=== PATIENT | female | born 1945 | race Caucasian/White ===

== ENCOUNTER 2021-12-07 15:00 | Observation (INO) | payer MEDICARE ==
--- NOTE | 2021-12-07 16:49 | CT ---
EXAMINATION TYPE: CT brain cspine wo con CT DLP: 1322.5 mGycm, Automated exposure control for dose reduction was used. DATE OF EXAM: 12/07/2021 4:33 PM COMPARISON: None.. CLINICAL INDICATION:Female, 76 years old with history of trauma; Trauma from possible seizure. Rt tem ple bruising. Pt doesn't recall incident and denies seizure hx. TECHNIQUE: Brain: Multiple axial CT images of the brain were obtained without IV contrast. Cspine: Axial CT images from the skull base to the inferior aspect of T2 we obtained without intraven ous contrast. Coronal and sagittal reformatted images were also reviewed. FINDINGS: Brain: Extra-axial spaces: No abnormal extra-axial fluid collections. Ventricular system: Within normal limits Cerebral parenchyma: No acute intraparenchymal hemorrhage or mass effect. The spaulding-white junction is well differentiated. Scattered hypoattenuating areas are seen within the white matter. Cerebellum: Unremarkable. Mass effect: No evidence of midline shift. Intracranial vasculature: unremarkable Soft tissues: Minimal soft tissue changes over the right temporal bone. Calvarium/osseous structures: No depressed skull fracture. Paranasal sinuses and mastoid air cells: Clear. Visualized orbits: Orbital contents are intact. Cervical spine: Fracture: None. Osseous structures: Multilevel degenerative disc disease changes with endplate spurring and disc oste ophyte complex's. Vertebral alignment: Within normal limits. Spinal canal/Neural Foramina: No evidence of significant spinal canal narrowing. Facet joint uncovert ebral joint arthropathy scattered throughout the cervical spine with varying degrees of neural forami nal stenosis. Neck soft tissues: Prevertebral soft tissues are within normal limits. Other: The airway is patent. The lung apices are clear. IMPRESSION: 1. No acute intracranial process. 2. Nonspecific white matter changes, likely secondary to chronic small vessel ischemic disease. 3. No evidence of cervical spine fracture. 4. Moderate multilevel degenerative disc disease.
[2021-12-07 17:08] LABS: Basophils % (A) 0 %; Eosinophils # (A) 0.1 k/uL (0-0.7); Eosinophils % (A) 1 %; HGB 13.1 gm/dL (11.4-16.0); Lymphocytes # (A) 1.6 k/uL (1.0-4.8); Lymphocytes % (A) 12 %; MCH 31.6 pg (25.0-35.0); MCHC 34.4 g/dL (31.0-37.0); MCV 91.7 fL (80.0-100.0); Mean Platelet Volume 7.4; Monocytes # (A) 0.6 k/uL (0-1.0); Monocytes % (A) 4 %; Neutrophils % (A) 82 %; Platelet Count 312 k/uL (150-450); RBC 4.15 m/uL (3.80-5.40); RDW 12.5 % (11.5-15.5); WBC 13.4 k/uL (3.8-10.6)
--- NOTE | 2021-12-07 17:10 | ED ---
General Adult HPI - General Chief complaint: Altered Mental Status Stated complaint: Abnormal Lab, Dr Thomas sent for a brain scan Time Seen by Provider: 12/07/21 16:13 Source: patient, RN notes reviewed, old records reviewed Mode of arrival: ambulatory Limitations: no limitations - History of Present Illness Initial comments: 76-year-old female presenting from the primary care office for confusion and signs of head trauma. Patient's had gone to the primary care physician with right-sided head injury and tongue injury. The patient states that she had awoken this morning and had no numbness or urinary incontinence. She has no prior history of seizure disorder. She does not recall any of the events. She is confused as to what exactly happened. She states she has had some dizziness over the past one week with associated nausea. No focal numbness or weakness. No headache. - Related Data Allergies Allergy/AdvReac Type Severity Reaction Status Date / Time No Known Allergies Allergy Verified 12/07/21 15:40 Review of Systems ROS Statement: Those systems with pertinent positive or pertinent negative responses have been documented in the HPI. ROS Other: All systems not noted in ROS Statement are negative. Past Medical History Past Medical History: No Reported History History of Any Multi-Drug Resistant Organisms: None Reported Past Surgical History: No Surgical Hx Reported Past Psychological History: No Psychological Hx Reported Smoking Status: Former smoker Past Alcohol Use History: None Reported Past Drug Use History: None Reported General Exam Limitations: no limitations General appearance: alert, in no apparent distress Head exam: Present: normocephalic. Absent: atraumatic (Right temporal hematoma and right eye subconjunctival hemorrhage) Eye exam: Present: PERRL, other (Subconjunctival hemorrhage on the right) Respiratory exam: Present: normal lung sounds bilaterally. Absent: respiratory distress, wheezes Cardiovascular Exam: Present: regular rate, normal rhythm GI/Abdominal exam: Present: soft. Absent: distended, tenderness, guarding Extremities exam: Present: normal capillary refill Neurological exam: Present: alert, CN II-XII intact. Absent: motor sensory deficit Psychiatric exam: Present: normal affect, normal mood Skin exam: Present: warm, dry, intact. Absent: cyanosis, diaphoretic Course Vital Signs 12/07/21 12/07/21 15:36 16:57 Temperature 98.6 F Pulse Rate 79 80 Respiratory 16 18 Rate Blood Pressure 131/64 138/82 O2 Sat by Pulse 98 99 Oximetry EKG Findings - EKG Comments: EKG Findings:: EKG: Sinus rhythm low voltage, T-wave abnormality in lead 3 and V3, no ST segment elevation. Rate of 73, SD interval 145, QRS duration 79, QTC 422 Medical Decision Making - Medical Decision Making 76-year-old female with suspected new onset seizure. There was head trauma and therefore CT imaging was performed which is negative for intracranial hemorrhage or mass effect. Laboratory studies reveal mild leukocytosis and a normal CMP. There is signs of a year UTI with 81 white cells in the urine per culture is pending but the patient is started on antibiotics awaiting these results given the leukocytosis. Patient also given Keppra in the emergency department she will be admitted on seizure precautions to Dr. Thomas who is aware of the patient with neurology on consult. - Lab Data Result diagrams: 12/07/21 16:52 12/07/21 16:52 Lab Results 12/07/21 12/07/21 12/07/21 Range/Units 16:38 16:52 16:52 WBC 13.4 H (3.8-10.6) k/uL RBC 4.15 (3.80-5.40) m/uL Hgb 13.1 (11.4-16.0) gm/dL Hct 38.0 (34.0-46.0) % MCV 91.7 (80.0-100.0) fL MCH 31.6 (25.0-35.0) pg MCHC 34.4 (31.0-37.0) g/dL RDW 12.5 (11.5-15.5) % Plt Count 312 (150-450) k/uL MPV 7.4 Neutrophils % 82 % Lymphocytes % 12 % Monocytes % 4 % Eosinophils % 1 % Basophils % 0 % Neutrophils # 11.0 H (1.3-7.7) k/uL Lymphocytes # 1.6 (1.0-4.8) k/uL Monocytes # 0.6 (0-1.0) k/uL Eosinophils # 0.1 (0-0.7) k/uL Basophils # 0.0 (0-0.2) k/uL PT 10.8 (9.0-12.0) sec INR 1.0 (<1.2) APTT 21.2 L (22.0-30.0) sec Sodium (137-145) mmol/L Potassium (3.5-5.1) mmol/L Chloride (98-107) mmol/L Carbon Dioxide (22-30) mmol/L Anion Gap mmol/L BUN (7-17) mg/dL Creatinine (0.52-1.04) mg/dL Est GFR (CKD-EPI)AfAm (>60 ml/min/1.73 sqM) Est GFR (CKD-EPI)NonAf (>60 ml/min/1.73 sqM) Glucose (74-99) mg/dL Calcium (8.4-10.2) mg/dL Magnesium (1.6-2.3) mg/dL Total Bilirubin (0.2-1.3) mg/dL AST (14-36) U/L ALT (4-34) U/L Alkaline Phosphatase (38-126) U/L Total Protein (6.3-8.2) g/dL Albumin (3.5-5.0) g/dL Urine Color Yellow Urine Appearance Clear (Clear) Urine pH 5.5 (5.0-8.0) Ur Specific [place] 1.020 (1.001-1.035) Urine Protein Trace H (Negative) Urine Glucose (UA) Negative (Negative) Urine Ketones 1+ H (Negative) Urine Blood Trace H (Negative) Urine Nitrite Negative (Negative) Urine Bilirubin Negative (Negative) Urine Urobilinogen <2.0 (<2.0) mg/dL Ur Leukocyte Esterase Large H (Negative) Urine RBC 2 (0-5) /hpf Urine WBC 81 H (0-5) /hpf Ur Squamous Epith Cells 1 (0-4) /hpf Ur Transition Epith Cell <1 (0-1) /hpf Urine Bacteria Rare H (None) /hpf Urine Mucus Few H (None) /hpf 12/07/21 Range/Units 16:52 WBC (3.8-10.6) k/uL RBC (3.80-5.40) m/uL Hgb (11.4-16.0) gm/dL Hct (34.0-46.0) % MCV (80.0-100.0) fL MCH (25.0-35.0) pg MCHC (31.0-37.0) g/dL RDW (11.5-15.5) % Plt Count (150-450) k/uL MPV Neutrophils % % Lymphocytes % % Monocytes % % Eosinophils % % Basophils % % Neutrophils # (1.3-7.7) k/uL Lymphocytes # (1.0-4.8) k/uL Monocytes # (0-1.0) k/uL Eosinophils # (0-0.7) k/uL Basophils # (0-0.2) k/uL PT (9.0-12.0) sec INR (<1.2) APTT (22.0-30.0) sec Sodium 139 (137-145) mmol/L Potassium 3.5 (3.5-5.1) mmol/L Chloride 103 (98-107) mmol/L Carbon Dioxide 25 (22-30) mmol/L Anion Gap 11 mmol/L BUN 14 (7-17) mg/dL Creatinine 0.70 (0.52-1.04) mg/dL Est GFR (CKD-EPI)AfAm >90 (>60 ml/min/1.73 sqM) Est GFR (CKD-EPI)NonAf 86 (>60 ml/min/1.73 sqM) Glucose 133 H (74-99) mg/dL Calcium 9.2 (8.4-10.2) mg/dL Magnesium 2.3 (1.6-2.3) mg/dL Total Bilirubin 0.5 (0.2-1.3) mg/dL AST 46 H (14-36) U/L ALT 26 (4-34) U/L Alkaline Phosphatase 94 (38-126) U/L Total Protein 7.4 (6.3-8.2) g/dL Albumin 4.6 (3.5-5.0) g/dL Urine Color Urine Appearance (Clear) Urine pH (5.0-8.0) Ur Specific [place] (1.001-1.035) Urine Protein (Negative) Urine Glucose (UA) (Negative) Urine Ketones (Negative) Urine Blood (Negative) Urine Nitrite (Negative) Urine Bilirubin (Negative) Urine Urobilinogen (<2.0) mg/dL Ur Leukocyte Esterase (Negative) Urine RBC (0-5) /hpf Urine WBC (0-5) /hpf Ur Squamous Epith Cells (0-4) /hpf Ur Transition Epith Cell (0-1) /hpf Urine Bacteria (None) /hpf Urine Mucus (None) /hpf Disposition Clinical Impression: Altered mental status, New onset seizure Disposition: ADMITTED IP TO THIS HOSP Condition: Stable Instructions (If sedation given, give patient instructions): Seizure/Epilepsy Discharge Instructions & Follow-Up Is patient prescribed a controlled substance at d/c from ED?: No Referrals: Ankush Thomas MD [Primary Care Provider] - 1-2 days Time of Disposition: 17:46
[2021-12-07] MEDS ORDERED: levETIRAcetam IV 1,000 MG in SALINE 1 100ML.BAG IVPB STA (17:11)
[2021-12-07 17:12] LABS: ALT 26 U/L (4-34); AST 46 U/L (14-36); African American GFR (CKD) >90 (>60 ml/min/1.73 sqM); Albumin 4.6 g/dL (3.5-5.0); Alkaline Phosphatase 94 U/L (38-126); Anion Gap 11 mmol/L; Blood Urea Nitrogen 14 mg/dL (7-17); Calcium 9.2 mg/dL (8.4-10.2); Carbon Dioxide 25 mmol/L (22-30); Chloride 103 mmol/L (98-107); Glucose 133 mg/dL (74-99); Magnesium 2.3 mg/dL (1.6-2.3); Non-African American GFR(CKD) 86 (>60 ml/min/1.73 sqM); Potassium 3.5 mmol/L (3.5-5.1); Sodium 139 mmol/L (137-145); Total Bilirubin 0.5 mg/dL (0.2-1.3); Total Protein 7.4 g/dL (6.3-8.2)
[2021-12-07 17:15] LABS: Appearance,Urine Clear (Clear); Bacteria,Urine Rare /hpf; Bilirubin,Urine Negative (Negative); Blood,Urine Trace (Negative); Color,Urine Yellow; Glucose,Urine (UA) Negative (Negative); Ketones,Urine 1+ (Negative); Leukocyte Esterase,Urine Large (Negative); Mucus,Urine Few /hpf; Nitrite,Urine Negative (Negative); PH, Urine 5.5 (5.0-8.0); Protein,Urine Trace (Negative); RBC,Urine 2 /hpf (0-5); Squamous Epithelial Cell,Urine 1 /hpf (0-4); Transitional Epi Cells,Urine <1 /hpf (0-1); Urobilinogen,Urine <2.0 mg/dL (<2.0); WBC,Urine 81 /hpf (0-5)
[2021-12-07 17:20] LABS: Prothrombin Time 10.8 sec (9.0-12.0)
[2021-12-07 17:43] LABS: Partial Thromboplastin Time 21.2 sec (22.0-30.0)
[2021-12-07] MEDS ORDERED: NALOXONE 0.4 MG/ML 1 ML VIAL IV PRN (17:44)
[2021-12-07] MEDS ORDERED: ACETAMINOPHEN TAB 325 MG TAB PO PRN (17:44)
[2021-12-07] MEDS: SODIUM CHLORIDE 0.9% 1,000 ML IV SCH (18:58)
[2021-12-07] MEDS ORDERED: ACETAMINOPHEN TAB 500 MG TAB PO PRN (21:38)
[2021-12-07] MEDS ORDERED: PANTOPRAZOLE 40 MG TABLET PO PRN (21:38)
[2021-12-07] MEDS: CEPHALEXIN 500 MG CAP PO SCH (22:20)
--- NOTE | 2021-12-07 23:43 | P.HPIM ---
History of Present Illness H&P Date: 12/07/21 HISTORY OF PRESENT ILLNESS 76-year-old female one of my office patient who is known to have history of chronic colitis, recurrent diarrhea with IVSD, history of elevated blood pressure, hyperglycemia, chronic lower back pain, recurrent UTI who was seen in our office last 2 days because of episode of severe worsening diarrhea and quite bit dehydration by people pass out with her concern fell and traumatized the right side of forehead area when examining patient carefully found to have small cut on the left side of her tongue and has no recollection and memory of her tr auma or how it happened. The further detail patient found to have mild amnesia for the event which this point believed to be probably seizure activity. Her laboratory value shows only significant UTI patient was sent to the emergency department had CAT scan of the brain and full panel blood work showed UTI with CT of the brain and the cervical spine showed no acute intracranial hemorrhage, nonspecific white matter change likely secondary to small vessel disease, no evidence of cervical spine fracture that had moderate multilevel degenerative disc disease. Patient was started on antibiotic for UTI, started on Keppra and agreed to be admitted to the hospital will be seen neurology and EEG will be done tomorrow. REVIEW OF SYSTEMS Constitutional: No fever, no chills, no night sweats. No weight change. no acute respiratory distress. EENT: No headache. No blurred vision or double vision, no loss of vision. No loss of Hearing, no ringing in the ears, no dizziness. No nasal drainage or congestion. No epistaxis. No sore throat.significant bruise in the right side of the forehead area with mild swelling from recent trauma and fall and also patient had mild cut on the left side of her tongue. Lungs: No shortness of breath, cough, no sputum production. No wheezing. Cardiovascular: No chest pain, no lower extremity edema. No palpitations. No paroxysmal nocturnal dyspnea. No orthopnea. No lightheadedness or dizziness. No syncopal episodes. Abdominal: No abdominal pain. No nausea, vomiting. No diarrhea. No constipation. No bloody or tarry stools.. No loss of appetite. Genitourinary: No dysuria, increased frequency, urgency. No urinary retention. Musculoskeletal: No myalgias. No muscle weakness, no gait dysfunction, no frequent falls. No back pain. No neck pain. Integumentary: No wounds, no lesions. No rash or pruritus. No unusual bruising. No change in hair or nails. Neurologic: No aphasia. No facial droop. slight change in mentation with head trauma mild headache no paralysis. Psychiatric: No depression. No anxiety. No mood swings. Endocrine: No abnormal blood sugars. No weight change. No excessive sweating or thirst. No cold intolerance. SOCIAL HISTORY patient does not smoke, no alcohol abuse, no drug use. Does not use any marijuana, no oxygen or updraft treatment. FAMILY HISTORY both parents passed from CAD, sibling with history of hypertension and CAD. PHYSICAL EXAMINATION Gen: This is well-developed no acute respiratory distress still slightly with confuse. HEENT: Head is atraumatic, normocephalic. Pupils equal, round. Sclerae is anicteric. mild bruise and swelling on the right side of her cheondoism and forehead area from fall with superficial swelling. NECK: Supple. No JVD. No lymphadenopathy. No thyromegaly. LUNGS: Clear to auscultation. No wheezes or rhonchi. No intercostal retractions. HEART: Regular rate and rhythm. No murmur. ABDOMEN: Soft. Bowel sounds are present. No masses. No tenderness. EXTREMITIES: No pedal edema. No calf tenderness. NEUROLOGICAL: Patient is awake, alert and oriented x3. Cranial nerves 2 through 12 are grossly intact. ASSESSMENT AND PLAN - altered mental status: Most likely related to new seizure activity but not a clear etiology at this point, patient will be sent to the hospital, brain CAT scan will be done and patient might require to go for an MRI that she would need a neuro consultation and EEG patient will be started on antiseizure medication. - New onset of seizure: Again not a etiology there is no head trauma except [id number] with right-sided forehead bruise and swelling: Patient will be seen urology start Keppra and plan for an EEG after CAT scan tonight. - Close head trauma: Secondary to fall from her seizure still have mild bruise on the right side of her forehead, CAT scan of the brain to reveal any internal hemorrhage. - Urinary tract infection: The UA was not totally normal patient be started on Rocephin or Keflex at this point awaiting for final culture. - History of chronic diarrhea and colitis: Has been having diarrhea for several years continue probiotic along with Imodium on an as-needed basis. - Severe gastroesophageal Reflux syndrome:continue on omeprazole 20 mg a day. - Elevated blood pressure: Remain on low-salt diet only. - History of anemia: Mostly iron deficiency still on iron supplement and multivitamin. - Hyperglycemia: Continue diet control Accu-Chek with sliding scales coverage will be done. - GI prophylaxis: Continue patient on omeprazole. - DVT prophylaxis: Early mobilization and knee-high GARRET hose. CODE STATUS: Full code. Patient will be admitted to the hospital for a minimum of 2 night stay. Past Medical History Past Medical History: No Reported History History of Any Multi-Drug Resistant Organisms: None Reported Past Surgical History: No Surgical Hx Reported Past Anesthesia/Blood Transfusion Reactions: Unable to Obtain Past Psychological History: No Psychological Hx Reported Smoking Status: Former smoker Past Alcohol Use History: None Reported Past Drug Use History: None Reported - Past Family History Mother Family Medical History: Diabetes Mellitus Medications and Allergies Home Medications Medication Instructions Recorded Confirmed Type Acetaminophen Tab [Tylenol Tab] 1,000 mg PO Q6HR PRN 12/07/21 12/07/21 History Omeprazole Magnesium [PriLOSEC OTC] 20 mg PO BID-W/MEALS PRN 12/07/21 12/07/21 History Allergies Allergy/AdvReac Type Severity Reaction Status Date / Time No Known Allergies Allergy Verified 12/07/21 18:51 Physical Exam Vitals: Vital Signs Temp Pulse Pulse Pulse Resp BP BP 12/07/21 20:27 98.1 F 64 64 18 148/74 12/07/21 16:57 80 18 138/82 12/07/21 15:36 98.6 F 79 16 131/64 Pulse Ox 12/07/21 20:27 96 12/07/21 16:57 99 12/07/21 15:36 98 Intake and Output 12/07/21 12/07/21 12/07/21 06:59 14:59 22:59 Intake Total 240 Balance 240 Intake: Oral 240 Other: Voiding Method Toilet Weight 59.874 kg Results CBC & Chem 7: 12/07/21 16:52 12/07/21 16:52 Labs: Abnormal Lab Results - Last 24 Hours (Table) 12/07/21 12/07/21 12/07/21 Range/Units 16:38 16:52 16:52 WBC 13.4 H (3.8-10.6) k/uL Neutrophils # 11.0 H (1.3-7.7) k/uL APTT 21.2 L (22.0-30.0) sec Glucose (74-99) mg/dL AST (14-36) U/L Urine Protein Trace H (Negative) Urine Ketones 1+ H (Negative) Urine Blood Trace H (Negative) Ur Leukocyte Esterase Large H (Negative) Urine WBC 81 H (0-5) /hpf Urine Bacteria Rare H (None) /hpf Urine Mucus Few H (None) /hpf 12/07/21 Range/Units 16:52 WBC (3.8-10.6) k/uL Neutrophils # (1.3-7.7) k/uL APTT (22.0-30.0) sec Glucose 133 H (74-99) mg/dL AST 46 H (14-36) U/L Urine Protein (Negative) Urine Ketones (Negative) Urine Blood (Negative) Ur Leukocyte Esterase (Negative) Urine WBC (0-5) /hpf Urine Bacteria (None) /hpf Urine Mucus (None) /hpf Thrombosis Risk Factor Assmnt - Choose All That Apply Other Risk Factors: Yes Each Risk Factor Represents 2 Points: Age 61-74 years Thrombosis Risk Factor Assessment Total Risk Factor Score: 2 Thrombosis Risk Factor Assessment Level: Low Risk
[2021-12-08 07:11] LABS: Glucose,Whole Blood 82 mg/dL (70-110)
[2021-12-08] MEDS: SODIUM CHLORIDE 0.9% 1,000 ML IV SCH (07:49)
[2021-12-08] MEDS: CEPHALEXIN 500 MG CAP PO SCH ×3 (07:49→20:27)
--- NOTE | 2021-12-08 10:51 | P.DS ---
Providers Date of admission: 12/07/21 17:45 Expected date of discharge: 12/09/21 Attending physician: Ankush Thomas Consults: 12/07/21 17:44 Consult Physician Routine Consulting Provider: Jw Pandya Consult Reason/Comments: Confusion, suspect new onset seizure Do you want consulting provider notified?: Yes Primary care physician: [facility] Course: HISTORY OF PRESENT ILLNESS 76-year-old female one of my office patient who is known to have history of chronic colitis, recurrent diarrhea with IVSD, history of elevated blood pressure, hyperglycemia, chronic lower back pain, recurrent UTI who was seen in our office last 2 days because of episode of severe worsening diarrhea and quite bit dehydration by people pass out with her concern fell and traumatized the right side of forehead area when examining patient carefully found to have small cut on the left side of her tongue and has no recollection and memory of her trauma or how it happened. The further detail patient found to have mild amnesia for the event which this point believed to be probably seizure activity. Her laboratory value shows only significant UTI patient was sent to the emergency department had CAT scan of the brain and full panel blood work showed UTI with CT of the brain and the cervical spine showed no acute intracranial hemorrhage, nonspecific white matter change likely secondary to small vessel disease, no evidence of cervical spine fracture that had moderate multilevel degenerative disc disease. Patient was started on antibiotic for UTI, started on Keppra and agreed to be admitted to the hospital will be seen neurology and EEG will be done tomorrow. 12/08: Patient has been afebrile, heart rate 70, blood pressure 123/70, pulse ox 94% on room air. Urine culture is in progress. EEG reveals generalized cerebral dysfunction seen with medication effect or new neurodegenerative process or encephalopathy. No epileptiform activity was seen. Patient has had no seizure activity and no loss of consciousness since admission. Patient has been seen by neurology and recommends continuing Keppra 500 mg twice daily. MRI of the brain is pending. Ammonia less than 9. Anticipate discharge once MRI are as reported and dated recommendations from neurology. 12/09: Patient has been afebrile, heart rate 74, blood pressure 119/63, pulse ox 93% on room air. capillary blood glucose running between 97 and 123. Urine culture skin or genital beto. MRI completed today revealed mild or moderate diffuse cerebral atrophy and probable chronic small vessel ischemic change. No abnormal enhancement. Source of seizures is not identified. Neurology as recommended diagnostic lumbar puncture which was done on 12/09, 2 ML's of CSF fluid collected in each tube 4, fluid was clear. Cytology revealed scattered mature lymphocytes with air drying artifact. No cytological malignant cells. HSV viral panel not detected. RBCs 1, total nucleated cells 0, glucose 52, total protein 56. Cerebral spinal fluid culture revealed no growth after 4 days. Neurology recommended discharge on Vee Keflex Keppra 500 mg twice daily and follow-up with neurologist outpatient. No driving unless seizure free for 6 months. Patient will be discharged home today in stable condition. DISCHARGE DIAGNOSES - altered mental status: Most likely related to new seizure activity - New onset of seizure - Close head trauma: Secondary to fall from her seizure - Urinary tract infection - History of chronic diarrhea and colitis: Has been having diarrhea for several years - Severe gastroesophageal Reflux syndrome - Elevated blood pressure - History of anemia - Hyperglycemia DISCHARGE PLAN Home Greater than 35 minutes was utilized and coordinating patient's discharge. Impression and plan of care have been directed as dictated by the signing physician. Alanis Khan nurse practitioner acting as scribe for signing physi crissy. Patient Condition at Discharge: Stable Plan - Discharge Summary Discharge Rx Participant: No New Discharge Prescriptions: New Cephalexin [Keflex] 500 mg PO TID #15 cap levETIRAcetam [Keppra] 500 mg PO Q12HR #60 tab Continue Acetaminophen Tab [Tylenol] 1,000 mg PO Q6HR PRN PRN Reason: Pain Or Fever > 100.5 Omeprazole Magnesium [PriLOSEC OTC] 20 mg PO BID-W/MEALS PRN PRN Reason: ACID REFLUX Discharge Medication List Acetaminophen Tab [Tylenol] 1,000 mg PO Q6HR PRN 12/07/21 [History] Omeprazole Magnesium [PriLOSEC OTC] 20 mg PO BID-W/MEALS PRN 12/07/21 [History] Cephalexin [Keflex] 500 mg PO TID #15 cap 12/09/21 [Rx] levETIRAcetam [Keppra] 500 mg PO Q12HR #60 tab 12/09/21 [Rx] Follow up Appointment(s)/Referral(s): Ankush Thomas MD [Primary Care Provider] - 12/21/21 11:30 am (please bring any new medications to appointment with you.) Patient Instructions/Handouts: Seizure/Epilepsy Discharge Instructions & Follow-Up, Cephalexin (By mouth), Levetiracetam (By mouth) Activity/Diet/Wound Care/Special Instructions: follow up Neurology in 3 weeks, no driving or diving Discharge Disposition: HOME SELF-CARE
[2021-12-08 11:40] LABS: Glucose,Whole Blood 98 mg/dL (70-110)
[2021-12-08] MEDS: levETIRAcetam 500 MG TAB PO SCH ×2 (12:33→20:28)
[2021-12-08] MEDS ORDERED: diazePAM 5 MG TAB PO STA (12:41)
--- NOTE | 2021-12-08 13:48 | P.CNNES ---
History of Present Illness Consult date: 12/08/21 Requesting physician: Toño Garcia Reason for Consult: Confusion, suspect new onset seizure History of Present Illness: Patient is a 76-year-old female with history of hypertension, currently on no medications, came to the hospital yesterday at 3 PM for new onset seizure, memory disturbance and episodes of dizziness. Patient has significant loss of memory in the last 7-10 days, therefore history provided by her was present at the time of this interview. Patient who has been in usual state of health until about 1-2 weeks ago, when she started having episodes of dizziness, which she describes as spinning sensation, and then she feels almost as if she will vomit. It comes on quickly, lasting for a few minutes and then slowly dissipates. Patient does not know for how long she has been having these spells, and how often it has been happening and what brings it on. As per information, she has been having these episodes several times a day, and the last episode was yesterday in the afternoon. Patient just says "I don't know" for any questions asked. Patient's states that these episodes can happen mostly when she is walking, sometimes standing and working in the kitchen, or sitting and doing nothing can also happen. Patient's states that she started having problems with memory and confusion, with significant forgetfulness in these last 1 week, progressively getting worse. She has trouble remembering how to go to her primary physician's office where she has gone numerous times. Her states that while driving they passed [place] and she did not know where she was at, although they have gone there numerous times. She has stopped driving because of confusion and memory loss. 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 Patient went to her primary care physician's office, who recommended her to go to ER for further evaluation. Patient denies headache any visual symptoms, slurred speech, facial droop, fever or chills, chest pain or abdominal pain. Patient has history of diarrhea for last 9 months after she took a course of amoxicillin. She was diagnosed with colitis. Vital signs on arrival blood pressure 131/64 pulse of 79, temperature 98.6 Computed tomography scan of the brain and cervical spine without contrast showed no acute intracranial process. Nonspecific white matter changes, likely secondary to chronic small vessel ischemic disease. No evidence of cervical spine fracture, moderate multilevel degenerative disc disease. I personally reviewed CT head, agree with the findings. EKG shows sinus rhythm, low voltage QRS. Blood test shows WBC 13.4 hemoglobin 13.1, platelets 312. PT/PTT normal. Chem-20 significant for mildly elevated AST 46. UA showed large amount of leukocyte esterase, 81 WBC and rare bacteria. Urine culture so far negative. Patient's home medications only include omeprazole and Tylenol. Patient has smoked 1 pack per day for 15-20 years, quit 40 years ago. No alcohol, no marijuana. Review of Systems As mentioned above in HPI. All other 14 points of review systems reviewed and unremarkable. Past Medical History Past Medical History: Diabetes Mellitus, GERD/Reflux, Hypertension Additional Past Medical History / Comment(s): Colitis, recurrent diarrhea, hyperglycemia, chronic back pain, recurrent uti's, AMS, possible seizure History of Any Multi-Drug Resistant Organisms: None Reported Past Surgical History: No Surgical Hx Reported Past Anesthesia/Blood Transfusion Reactions: Unable to Obtain Past Psychological History: No Psychological Hx Reported Smoking Status: Former smoker Past Alcohol Use History: None Reported Past Drug Use History: None Reported - Past Family History Mother Family Medical History: Diabetes Mellitus Medications and Allergies Home Medications Medication Instructions Recorded Confirmed Type Acetaminophen Tab [Tylenol Tab] 1,000 mg PO Q6HR PRN 12/07/21 12/07/21 History Omeprazole Magnesium [PriLOSEC OTC] 20 mg PO BID-W/MEALS PRN 12/07/21 12/07/21 History Allergies Allergy/AdvReac Type Severity Reaction Status Date / Time amoxicillin AdvReac Diarrhea Verified 12/08/21 12:34 Physical Examination - Vital Signs Vital Signs: Vital Signs Temp Pulse Pulse Pulse Resp BP BP 12/08/21 05:28 97.6 F 70 16 123/70 12/07/21 20:27 98.1 F 64 64 18 148/74 12/07/21 16:57 80 18 138/82 12/07/21 15:36 98.6 F 79 16 131/64 Pulse Ox 12/08/21 05:28 94 L 12/07/21 20:27 96 12/07/21 16:57 99 12/07/21 15:36 98 Intake and Output 12/07/21 12/08/21 12/08/21 22:59 06:59 14:59 Intake Total 480 200 Balance 480 200 Intake: Oral 480 200 Other: Voiding Method Toilet Toilet # Voids 2 Weight 59.874 kg Patient is an elderly female, appears younger than her stated age. Patient is alert awake, but is very forgetful, does not know details about her history as mentioned above. Patient otherwise is oriented saying "I have been working on it" referring to the questions for orientation. Patient was able to tell me it is November and the year is 2021 and that she is in [facility]. She knows that she lives in [facility] in [facility]. She knows name of the current president. Speech and language functions are normal. Patient can name and repeat very well. Attention, concentration is intact and fund of knowledge is limited. On cranial examination, pupils are round and reacting to light, visual june are full on confrontation, with no neglect on double simultaneous stimulation. Her extraocular muscles are intact with no nystagmus. Face is symmetric, tongue protrudes to the midline. Palatal elevation and sensation normal, hearing and shoulder shrug normal, facial sensation normal. Shoulder shrug normal. On muscle strength testing, there is no pronator drift and the strength is normal in arms and legs distally and proximally. Her radiotelegraphist strength is symmetrically decreased 5-bilaterally. Deep tendon reflexes are symmetric, trace at the biceps, trace brachioradialis, 1+ knees, 1+ ankles and plantars downgoing bilaterally. Sensory to touch is equal with no neglect. Cerebellar function showed no ataxia for [id number] testing. No dysdiadochokinesia. Tone and bulk of muscles normal. Gait deferred. On general examination, there is no carotid bruit or murmur, S1-S2 audible. Abdomen is soft nontender. No organomegaly, bowel sounds present. Chest is clear. Peripheral pulses are present. No edema. Results - Laboratory Findings CBC and BMP: 12/07/21 16:52 12/07/21 16:52 Abnormal Lab Findings: Abnormal Labs 12/07/21 12/07/21 12/07/21 16:38 16:52 16:52 WBC 13.4 H Neutrophils # 11.0 H APTT 21.2 L Glucose AST Urine Protein Trace H Urine Ketones 1+ H Urine Blood Trace H Ur Leukocyte Esterase Large H Urine WBC 81 H Urine Bacteria Rare H Urine Mucus Few H 12/07/21 16:52 WBC Neutrophils # APTT Glucose 133 H AST 46 H Urine Protein Urine Ketones Urine Blood Ur Leukocyte Esterase Urine WBC Urine Bacteria Urine Mucus Assessment and Plan Assessment: * New onset unwitnessed seizure. Patient has been having episodes of vertigo with vomiting off and on for last 7-10 days, also has developed progressive memory decline with short-term memory loss for the same period of time. Denies any headache, fever or chills. Her white cells are slightly elevated, but she also has a UTI. No meningeal signs. Exact cause is uncertain. Examination is nonfocal. Herpes encephalitis less likely with non- epileptiform EEG. Autoimmune NMDA encephalitis in the differential. Rule out toxic metabolic or nutritional causes. * Acute UTI. However the UTI is mild, probably would not contribute to above symptomatology. Patient on Zosyn. Plan: * Patient had an EEG performed today, which was mildly abnormal because of slightly suppressed background, with excessive low-voltage fast frequency ac tivity. This is suggestive of generalized cerebral dysfunction as can be seen with medication effect, neuro degenerative process or encephalopathy. No epileptiform activity was seen. * It is uncertain if her episodes of vertigo, dizziness are ictal or vestibular dysfunction related. She has not had any spells since she has been loaded with Keppra. At this point we will continue Keppra 500 mg twice a day for now. * MRI of the brain with and without contrast rule out structural abnormality. * We will check blood tests including B12, folate, TSH, MMA, RPR. Also check NMDA antibodies. * If her memory functions do not improve, and no obvious source identified with the MRI, then we will consider lumbar puncture to rule out any infectious/inflammatory process. * Neurology will follow. Thank you for the consult.
--- NOTE | 2021-12-08 13:52 | EEG ---
ELECTROENCEPHALOGRAM REPORT DATE OF SERVICE: 12/08/2021 PREAMBLE: This is a 76-year-old female with new onset seizure. This study is performed to evaluate for any epileptiform activity. EEG FINDINGS: This is a 21 channel digital EEG recording with video component, utilizing 10/20 international system with referential and bipolar montages. Background consists of poorly developed and regulated, somewhat suppressed low voltage activity with fast frequency beta activity seen in bihemispheric region. Background does not seem to be clearly reactive to eye opening or closing. Photic driving response was seen with some flash frequencies. Mild drowsiness was seen with appearance of bilaterally symmetric theta frequency rhythm. Some stage 2 sleep was seen with presence of sleep spindles. EKG channel showed mild arrhythmia. No focal or generalized epileptiform activity was seen. IMPRESSION: This is a mildly abnormal EEG due to slightly suppressed, low voltage activity, with excessive fast frequency beta activity. This is suggestive of generalized cerebral dysfunction as can be seen with medication effect, or from neurodegenerative process or encephalopathy. No epileptiform activity was seen. MMODL / IJN: [id number] / PRASHANT
[2021-12-08 17:16] LABS: Glucose,Whole Blood 100 mg/dL (70-110)
[2021-12-08 20:12] LABS: Glucose,Whole Blood 123 mg/dL (70-110)
[2021-12-09 04:23] VITALS: RESP 16
[2021-12-09 07:09] LABS: Glucose,Whole Blood 97 mg/dL (70-110)
[2021-12-09] MEDS ORDERED: diazePAM 5 MG TAB PO PRN (08:00)
[2021-12-09] MEDS: CEPHALEXIN 500 MG CAP PO SCH ×2 (09:16→16:55)
[2021-12-09] MEDS: levETIRAcetam 500 MG TAB PO SCH ×2 (09:16→16:56)
--- NOTE | 2021-12-09 09:44 | P.PN ---
Subjective Progress Note Date: 12/08/21 HISTORY OF PRESENT ILLNESS 76-year-old female one of my office patient who is known to have history of chronic colitis, recurrent diarrhea with IVSD, history of elevated blood pres sure, hyperglycemia, chronic lower back pain, recurrent UTI who was seen in our office last 2 days because of episode of severe worsening diarrhea and quite bit dehydration by people pass out with her concern fell and traumatized the right side of forehead area when examining patient carefully found to have small cut on the left side of her tongue and has no recollection and memory of her trauma or how it happened. The further detail patient found to have mild amnesia for the event which this point believed to be probably seizure activity. Her laboratory value shows only significant UTI patient was sent to the emergency department had CAT scan of the brain and full panel blood work showed UTI with CT of the brain and the cervical spine showed no acute intracranial hemorrhage, nonspecific white matter change likely secondary to small vessel disease, no evidence of cervical spine fracture that had moderate multilevel degenerative disc disease. Patient was started on antibiotic for UTI, started on Keppra and agreed to be admitted to the hospital will be seen neurology and EEG will be done tomorrow. 12/08: Patient has been afebrile, heart rate 70, blood pressure 123/70, pulse ox 94% on room air. Urine culture is in progress. EEG reveals generalized cerebral dysfunction seen with medication effect or new neurodegenerative process or encephalopathy. No epileptiform activity was seen. Patient has had no seizure activity and no loss of consciousness since admission. Patient has been seen by neurology and recommends continuing Keppra 500 mg twice daily. MRI of the brain is pending. Ammonia less than 9. Anticipate discharge once MRI are as reported and dated recommendations from neurology. REVIEW OF SYSTEMS Constitutional: No fever, no chills, no night sweats. No weight change. no acute respiratory distress. EENT: No headache. No blurred vision or double vision, no loss of vision. No loss of Hearing, no ringing in the ears, no dizziness. No nasal drainage or congestion. No epistaxis. No sore throat.significant bruise in the right side of the forehead area with mild swelling from recent trauma and fall and also patient had mild cut on the left side of her tongue. Lungs: No shortness of breath, cough, no sputum production. No wheezing. Cardiovascular: No chest pain, no lower extremity edema. No palpitations. No paroxysmal nocturnal dyspnea. No orthopnea. No lightheadedness or dizziness. No syncopal episodes. Abdominal: No abdominal pain. No nausea, vomiting. No diarrhea. No constipation. No bloody or tarry stools.. No loss of appetite. Genitourinary: No dysuria, increased frequency, urgency. No urinary retention. Musculoskeletal: No myalgias. No muscle weakness, no gait dysfunction, no frequent falls. No back pain. No neck pain. Integumentary: No wounds, no lesions. No rash or pruritus. No unusual br uising. No change in hair or nails. Neurologic: No aphasia. No facial droop. slight change in mentation with head trauma mild headache no paralysis. No seizure activity since admission. Psychiatric: No depression. No anxiety. No mood swings. Endocrine: No abnormal blood sugars. No weight change. No excessive sweating or thirst. No cold intolerance. PHYSICAL EXAMINATION Gen: This is well-developed no acute respiratory distress still slightly with confuse. HEENT: Head is atraumatic, normocephalic. Pupils equal, round. Sclerae is anicteric. mild bruise and swelling on the right side of her restoration and forehead area from fall with superficial swelling. NECK: Supple. No JVD. No lymphadenopathy. No thyromegaly. LUNGS: Clear to auscultation. No wheezes or rhonchi. No intercostal retractions. HEART: Regular rate and rhythm. No murmur. ABDOMEN: Soft. Bowel sounds are present. No masses. No tenderness. EXTREMITIES: No pedal edema. No calf tenderness. NEUROLOGICAL: Patient is awake, alert and oriented x3. Cranial nerves 2 through 12 are grossly intact. ASSESSMENT AND PLAN - Metabolic encephalopathy: Most likely related to new seizure activity but not a clear etiology at this point, patient will be sent to the hospital, brain CAT scan will be done and patient might require to go for an MRI that she would need a neuro consultation and EEG patient will be started on antiseizure medication. - New onset of seizure: Again not a etiology there is no head trauma except [id number] with right-sided forehead bruise and swelling: Patient will be seen urology start Adriana and plan for an EEG after CAT scan tonight. - Close head trauma: Secondary to fall from her seizure still have mild bruise on the right side of her forehead, CAT scan of the brain to reveal any internal hemorrhage. - Urinary tract infection: The UA was not totally normal patient be started on Rocephin or Keflex at this point awaiting for final culture. - History of chronic diarrhea and colitis: Has been having diarrhea for several years continue probiotic along with Imodium on an as-needed basis. - Severe gastroesophageal Reflux syndrome:continue on omeprazole 20 mg a day. - Elevated blood pressure: Remain on low-salt diet only. - History of anemia: Mostly iron deficiency still on iron supplement and multivitamin. - Hyperglycemia: Continue diet control Accu-Chek with sliding scales coverage will be done. - GI prophylaxis: Continue patient on omeprazole. - DVT prophylaxis: Early mobilization and knee-high GARRET hose. CODE STATUS: Full code. DISCHARGE PLAN Home within 24 hours Impression and plan of care have been directed as dictated by the signing physician. Alanis Khan nurse practitioner acting as scribe for signing phys ician. Objective - Vital Signs Vital signs: Vital Signs Temp 97.6 F 12/08/21 05:28 Pulse 70 12/08/21 05:28 Resp 16 12/08/21 05:28 BP 123/70 12/08/21 05:28 Pulse Ox 94 L 12/08/21 05:28 FiO2 Intake & Output 12/07/21 12/08/21 12/08/21 18:59 06:59 18:59 Intake Total 680 Balance 680 Weight 59.874 kg 59.874 kg Intake: Oral 680 Other: Voiding Method Toilet # Voids 2 - Labs CBC & Chem 7: 12/07/21 16:52 12/07/21 16:52 Labs: Abnormal Lab Results - Last 24 Hours (Table) 12/07/21 12/07/21 12/07/21 Range/Units 16:38 16:52 16:52 WBC 13.4 H (3.8-10.6) k/uL Neutrophils # 11.0 H (1.3-7.7) k/uL APTT 21.2 L (22.0-30.0) sec Glucose (74-99) mg/dL AST (14-36) U/L Urine Protein Trace H (Negative) Urine Ketones 1+ H (Negative) Urine Blood Trace H (Negative) Ur Leukocyte Esterase Large H (Negative) Urine WBC 81 H (0-5) /hpf Urine Bacteria Rare H (None) /hpf Urine Mucus Few H (None) /hpf 12/07/21 Range/Units 16:52 WBC (3.8-10.6) k/uL Neutrophils # (1.3-7.7) k/uL APTT (22.0-30.0) sec Glucose 133 H (74-99) mg/dL AST 46 H (14-36) U/L Urine Protein (Negative) Urine Ketones (Negative) Urine Blood (Negative) Ur Leukocyte Esterase (Negative) Urine WBC (0-5) /hpf Urine Bacteria (None) /hpf Urine Mucus (None) /hpf Microbiology - Last 24 Hours (Table) 12/07/21 16:38 Urine Culture - Preliminary Urine,Voided
--- NOTE | 2021-12-09 10:58 | MR ---
EXAMINATION TYPE: MR brain wo/w con DATE OF EXAM: 12/09/2021 COMPARISON: CT brain 2 days ago HISTORY: New onset seizure, memory loss, vertigo. TECHNIQUE: Multiplanar, multisequence images of the brain and brainstem is performed without and with IV contras t, utilizing 5.5 mL intravenous Gadavist . FINDINGS: Diffusion weighted images demonstrate no evidence of a recent infarct or other diffusion ab normality. There is mild ventricular and sulcal prominence. Some scattered areas of T2 hyperintensit y are seen throughout the white matter bilaterally greater in number and size in the posterior right frontal lobe. The lesions are nonspecific in appearance and distribution. T2 coronal weighted images show hippocampal gyri to appear symmetric and within normal limits. Midline structures demonstrate normal morphology. The craniocervical junction appears within normal limits. Post contrast images demonstrate no abnormal enhancement. The dural venous sinuses appear pa tent. The visualized sinuses are clear and the globes are intact. IMPRESSION: Mild/moderate diffuse cerebral atrophy and probable chronic small vessel ischemic change. No abnormal enhancement. Source of seizures is not identified.
[2021-12-09 11:26] LABS: Glucose,Whole Blood 92 mg/dL (70-110)
--- NOTE | 2021-12-09 12:37 | P.PN ---
Subjective Progress Note Date: 12/09/21 HISTORY OF PRESENT ILLNESS 76-year-old female one of my office patient who is known to have history of chronic colitis, recurrent diarrhea with IVSD, history of elevated blood pres sure, hyperglycemia, chronic lower back pain, recurrent UTI who was seen in our office last 2 days because of episode of severe worsening diarrhea and quite bit dehydration by people pass out with her concern fell and traumatized the right side of forehead area when examining patient carefully found to have small cut on the left side of her tongue and has no recollection and memory of her trauma or how it happened. The further detail patient found to have mild amnesia for the event which this point believed to be probably seizure activity. Her laboratory value shows only significant UTI patient was sent to the emergency department had CAT scan of the brain and full panel blood work showed UTI with CT of the brain and the cervical spine showed no acute intracranial hemorrhage, nonspecific white matter change likely secondary to small vessel disease, no evidence of cervical spine fracture that had moderate multilevel degenerative disc disease. Patient was started on antibiotic for UTI, started on Keppra and agreed to be admitted to the hospital will be seen neurology and EEG will be done tomorrow. 12/08: Patient has been afebrile, heart rate 70, blood pressure 123/70, pulse ox 94% on room air. Urine culture is in progress. EEG reveals generalized cerebral dysfunction seen with medication effect or new neurodegenerative process or encephalopathy. No epileptiform activity was seen. Patient has had no seizure activity and no loss of consciousness since admission. Patient has been seen by neurology and recommends continuing Keppra 500 mg twice daily. MRI of the brain is pending. Ammonia less than 9. Anticipate discharge once MRI are as reported and dated recommendations from neurology. MRI of the brain reveals mild to moderate diffuse cerebral atrophy and probable chronic small vessel ischemic change. No abnormal enhancement. Source of seizures not identified. Dr. Tineo has requested lumbar puncture. REVIEW OF SYSTEMS Constitutional: No fever, no chills, no night sweats. No weight change. no acute respiratory distress. EENT: No headache. No blurred vision or double vision, no loss of vision. No loss of Hearing, no ringing in the ears, no dizziness. No nasal drainage or congestion. No epistaxis. No sore throat.significant bruise in the right side of the forehead area with mild swelling from recent trauma and fall and also patient had mild cut on the left side of her tongue. Lungs: No shortness of breath, cough, no sputum production. No wheezing. Cardiovascular: No chest pain, no lower extremity edema. No palpitations. No paroxysmal nocturnal dyspnea. No orthopnea. No lightheadedness or dizziness. No syncopal episodes. Abdominal: No abdominal pain. No nausea, vomiting. No diarrhea. No constipation. No bloody or tarry stools.. No loss of appetite. Genitourinary: No dysuria, increased frequency, urgency. No urinary retention. Musculoskeletal: No myalgias. No muscle weakness, no gait dysfunction, no frequent falls. No back pain. No neck pain. Integumentary: No wounds, no lesions. No rash or pruritus. No unusual bruising. No change in hair or nails. Neurologic: No aphasia. No facial droop. slight change in mentation with head trauma mild headache no paralysis. No seizure activity since admission. Psychiatric: No depression. No anxiety. No mood swings. Endocrine: No abnormal blood sugars. No weight change. No excessive sweating or thirst. No cold intolerance. PHYSICAL EXAMINATION Gen: This is well-developed no acute respiratory distress still slightly with confuse. HEENT: Head is atraumatic, normocephalic. Pupils equal, round. Sclerae is anicteric. mild bruise and swelling on the right side of her zoroastrianism and forehead area from fall with superficial swelling. NECK: Supple. No JVD. No lymphadenopathy. No thyromegaly. LUNGS: Clear to auscultation. No wheezes or rhonchi. No intercostal retractions. HEART: Regular rate and rhythm. No murmur. ABDOMEN: Soft. Bowel sounds are present. No masses. No tenderness. EXTREMITIES: No pedal edema. No calf tenderness. NEUROLOGICAL: Patient is awake, alert and oriented x3. Cranial nerves 2 through 12 are grossly intact. ASSESSMENT AND PLAN - Metabolic encephalopathy: Most likely related to new seizure activity but not a clear etiology at this point, patient will be sent to the hospital, brain CAT scan will be done and patient might require to go for an MRI that she would need a neuro consultation and EEG patient will be started on antiseizure medication. - New onset of seizure: Again not a etiology there is no head trauma except [id number] with right-sided forehead bruise and swelling: Patient will be seen urology start Keppra and plan for an EEG after CAT scan tonight. - Close head trauma: Secondary to fall from her seizure still have mild bruise on the right side of her forehead, CAT scan of the brain to reveal any internal hemorrhage. - Urinary tract infection: The UA was not totally normal patient be started on Rocephin or Keflex at this point awaiting for final culture. - History of chronic diarrhea and colitis: Has been having diarrhea for several years continue probiotic along with Imodium on an as-needed basis. - Severe gastroesophageal Reflux syndrome:continue on omeprazole 20 mg a day. - Elevated blood pressure: Remain on low-salt diet only. - History of anemia: Mostly iron deficiency still on iron supplement and multivitamin. - Hyperglycemia: Continue diet control Accu-Chek with sliding scales coverage will be done. - GI prophylaxis: Continue patient on omeprazole. - DVT prophylaxis: Early mobilization and knee-high GARRET hose. CODE STATUS: Full code. DISCHARGE PLAN Home within 24 hours Impression and plan of care have been directed as dictated by the signing physician. Alanis Khan nurse practitioner acting as scribe for signing physician. Objective - Vital Signs Vital signs: Vital Signs Temp 98.2 F 12/09/21 06:53 Pulse 74 12/09/21 06:53 Resp 16 12/09/21 06:53 BP 119/63 12/09/21 06:53 Pulse Ox 93 L 12/09/21 04:21 FiO2 Intake & Output 12/08/21 12/09/21 12/09/21 18:59 06:59 18:59 Intake Total 540 Balance 540 Intake: Oral 540 Other: Voiding Method Toilet Toilet Toilet # Voids 1 2 - Labs CBC & Chem 7: 12/07/21 16:52 12/07/21 16:52 Labs: Abnormal Lab Results - Last 24 Hours (Table) 12/08/21 Range/Units 20:10 POC Glucose (mg/dL) 123 H (70-110) mg/dL
[2021-12-09 12:45] VITALS: TEMP 98
[2021-12-09] MEDS ORDERED: LIDOCAINE 2% INJ 20 MG/ML (2 ML VIAL) ONE (13:19)
--- NOTE | 2021-12-09 13:40 | P.PCN ---
Date of Procedure: 12/09/21 Description of Procedure: Procedure: 1. Diagnostic Lumbar puncture for CSF collection PREOPERATIVE DIAGNOSIS: Altered mental status POSTOPERATIVE DIAGNOSIS: Altered mental status SURGEON: Jj Park ANESTHESIA: Local with 1% lidocaine, and IV sedation : None EBL: None. Specimen removed: 2mL of CSF in each collecting tube X4 PROCEDURE INDICATION: The patient had history of altered mental status, no onset of seizures questionable . Consulted for lumbar puncture for CSF collection send it for analysis. PROCEDURE DESCRIPTION: The patient was seen and identified. Risks, benefits, complications, and alternatives were discussed with the patient. The patient agreed to proceed with the procedure and signed the consent, and vital signs were stable. Patient was taken to the procedure area, and time out was completed. The patient was placed in sitting position on procedure. . The lumbosacral area was prepped and draped in the usual sterile fashion. Critical pause was taken. Vital signs were closely monitored during the procedure. Posterior superior iliac crest landmarks was identified . The midline lumbar space also identified. Approximately at the level of L4-L5 interspinous space, skin and deeper tissues were localized with 5 mL of 1% lidocaine. Using a 22 gauge 3.5 spinal needle entered into subarachnoid space, with 1 attempt. Clear CSF came out of the spinal needle. 2 mL of CSF fluid collected in each tube 4. Needle was withdrawn intact, skin was cleansed, and bandages were applied. COMPLICATIONS: None. DISPOSITION / PLANS: The patient was placed in a supine position and transferred to the recovery area in a stable condition for observation. Patient was discharged from the recovery room after meeting discharge criteria. In-house discharge instructions given to the patient by the staff. The patient was reexamined prior to discharge.
[2021-12-09] MEDS ORDERED: LACTATED RINGERS 1,000 ML IV SCH (13:45)
[2021-12-09 14:25] VITALS: BP 141/69; PULSE 71
[2021-12-09 15:23] LABS: Glucose,CSF 52 mg/dL (40-70); Total Protein,CSF 56 mg/dL (12-60)
[2021-12-09 16:08] LABS: Appearance,CSF Clear; CSF Tube Number 4; CSF Tube Volume 0.5; Nucleated Cells, CSF 0 u/L (0-5); Red Blood Cell,CSF 1 u/L (0-10)
--- NOTE | 2021-12-09 22:32 | P.PN ---
Subjective Progress Note Date: 12/09/21 Patient was seen for a follow-up. Patient's was also present today. Patient believes that she is 70-75% back to baseline. Her believes that she is 90% back to baseline. Patient still having problems with memory. Denies any focal symptoms. Objective - Vital Signs Vital signs: Vital Signs Temp 98.0 F 12/09/21 12:44 Pulse 71 12/09/21 14:24 Resp 16 12/09/21 14:24 BP 141/69 12/09/21 14:24 Pulse Ox 99 12/09/21 14:24 FiO2 Intake & Output 12/08/21 12/09/21 12/09/21 18:59 06:59 18:59 Intake Total 540 Balance 540 Intake: Oral 540 Other: Voiding Method Toilet Toilet Toilet # Voids 1 2 - Exam Patient's mental status is intact. She knows it is 12/09/2021 and that she is in [facility] although she lives in [facility]. She knows it is Sunday and name of the current president. Rest of the examination is nonfocal. - Labs CBC & Chem 7: 12/07/21 16:52 12/07/21 16:52 Labs: Abnormal Lab Results - Last 24 Hours (Table) 12/08/21 Range/Units 20:10 POC Glucose (mg/dL) 123 H (70-110) mg/dL Microbiology - Last 24 Hours (Table) 12/07/21 16:38 Urine Culture - Final Urine,Voided Assessment and Plan Assessment: * New onset unwitnessed seizure. Patient has been having episodes of vertigo with vomiting off and on for last 7-10 days, also has developed progressive memory decline with short-term memory loss for the same period of time. Den ies any headache, fever or chills. Her white cells are slightly elevated, but she also has a UTI. No meningeal signs. Exact cause is uncertain. Examination is nonfocal. Herpes encephalitis less likely with non- epileptiform EEG. Autoimmune NMDA encephalitis in the differential. Rule out toxic metabolic or nutritional causes. * Acute UTI. However the UTI is mild, probably would not contribute to above symptomatology. Patient on Zosyn. Plan: * EEG was mildly abnormal because of slightly suppressed background, with excessive low-voltage fast frequency activity. This is suggestive of generalized cerebral dysfunction as can be seen with medication effect, neuro degenerative process or encephalopathy. No epileptiform activity was seen. * Patient is doing well on Keppra. She has not had any dizzy spells or any recurrence of seizure. * MRI of the brain with and without contrast revealed mild/moderate diffuse cerebral atrophy and probable chronic small vessel ischemic change. No abnormal enhancement. Source of seizures is not identified. I personally re viewed MRI and agree with the findings. * CSF revealed normal white cells 0, RBC 1, glucose 52, proteins normal 56. HSV-1 and 2 PCR negative. West Nile virus negative. Viral cultures negative. * B12 436, folate 9.7, TSH 0.552, MMA 0.11, RPR nonreactive. Also check NMDA antibodies negative. * Patient neurologically clear for discharge on Keppra 500 mg twice a day. * Recommend patient follow up with neurologist in 2-4 weeks. * Patient informed of [place] state law of no driving unless seizure free for 6 months, climbing ladders, operating dangerous machinery or unsupervised swimming.
[2021-12-15 12:47] LABS: West Nile Virus IgM Antibody 0.03 INDEX (<0.90)
== END 2021-12-09 17:10 | disposition home or self-care (01) ==
LOC: EC 15:00 → 4SSUR 17:45 → INTOOBSV 17:45 → 5NMEDONC 18:34 → UNDODISIN 12-09 17:10
PROVIDERS: ADMIT Internal Medicine Geriatric Medicine; ATTEND Internal Medicine Geriatric Medicine
PROC: 4A10X4Z Monitoring of Central Nervous Electrical Activity, External Approach (ICD-10-PCS; 2021-12-08)
PROC: 009U3ZX Drainage of Spinal Canal, Percutaneous Approach, Diagnostic (ICD-10-PCS; principal; 2021-12-09 15:15)
DX: R56.9 Unspecified convulsions (principal); G93.41 Metabolic encephalopathy; N39.0 Urinary tract infection, site not specified; E86.0 Dehydration; E11.65 Type 2 diabetes mellitus with hyperglycemia; K52.9 Noninfective gastroenteritis and colitis, unspecified; D50.9 Iron deficiency anemia, unspecified; M50.30 Other cervical disc degeneration, unspecified cervical region; K21.9 Gastro-esophageal reflux disease without esophagitis; R41.3 Other amnesia; R42 Dizziness and giddiness; G89.29 Other chronic pain; M54.50 Low back pain, unspecified; R74.01 Elevation of levels of liver transaminase levels; R94.01 Abnormal electroencephalogram [EEG]; I10 Essential (primary) hypertension; G31.89 Other specified degenerative diseases of nervous system; S01.512A Laceration without foreign body of oral cavity, initial encounter; S00.83XA Contusion of other part of head, initial encounter; W19.XXXA Unspecified fall, initial encounter; Z88.0 Allergy status to penicillin; Z87.440 Personal history of urinary (tract) infections; Z87.891 Personal history of nicotine dependence; Z82.49 Family history of ischemic heart disease and other diseases of the circulatory system; Z83.3 Family history of diabetes mellitus
CPT/HCPCS: 96361; 96365; 99285; 36415; 95816; 93005; 83921; 87496; 87498; 87529 ×2; 87798 ×2; 88108; 84157; 80053; 82945; 84443; 82607; 82140; 82746; 83735; 85025; 85610; 85730; 89050; 81001; 87252; 86789; 86788; 86780; 87070; 87086; 87205; 86255; 72125; 70450; 70553; 62270; G0378 ×4; J2001 ×2; J1953; A9585

== ENCOUNTER → 2021-12-31 | Outpatient (CLI) | payer MEDICARE | END | disposition home or self-care (01) | LOC: LABWHC1 09:12 | PROVIDERS: ATTEND Psychiatry & Neurology Neurology | DX: R56.9 Unspecified convulsions (principal) | CPT/HCPCS: 36415; 80177 ==

== ENCOUNTER 2022-02-14 14:21 | Emergency (ER) | payer MEDICARE ==
[2022-02-14 14:35] VITALS: BP 176/86; PULSE 71; RESP 16; TEMP 98.1
--- NOTE | 2022-02-14 16:21 | ED ---
Altered Mental Status HPI - General Chief Complaint: Altered Mental Status Stated Complaint: Post seizure, Mental Health, AMS Time Seen by Provider: 02/14/22 15:58 Source: patient, family, RN notes reviewed Mode of arrival: ambulatory Limitations: altered mental status - History of Present Illness Initial Comments: Patient is a 76-year-old female presents to the emergency room with her spouse with concerns of continued poor mental health resulting in a desire to no longer live. She has told her spouse that if she cannot retain memory and continues to be confused that she does not wish to live. She does not have a suicidal plan but does note the suicidal ideations. She was hospitalized approximately 6 weeks ago after a fall at home and seizure-like activity at that time she had presented with altered mental status and unfortunately has not regained her memory since that time. She continues to be alert and orientated 1-2. She is following with Dr. Lemus along with her primary care provider Dr. Thomas in regards to her recent workup she was started on seizure medications and medication for anxiety while awaiting results of her EEG. Her spouse reports that prior to her event 6 weeks ago she was normal functioning without any memory impairment. She does have a past medical history significant for diabetes, hypertension and GERD. She also has been treated for recurrent UTIs. - Related Data Home Medications Medication Instructions Recorded Confirmed clonazePAM [KlonoPIN] 0.25 mg PO BID 02/14/22 02/14/22 levETIRAcetam [Keppra] 500 mg PO Q12H 02/14/22 02/14/22 Previous Rx's Medication Instructions Recorded Sulfamethox-Tmp 800-160Mg [Bactrim 1 tab PO Q12HR 5 Days #10 tab 02/14/22 DS 800-160 mg] Allergies Allergy/AdvReac Type Severity Reaction Status Date / Time amoxicillin AdvReac Diarrhea Verified 02/14/22 14:35 Review of Systems ROS Statement: Those systems with pertinent positive or pertinent negative responses have been documented in the HPI. ROS Other: All systems not noted in ROS Statement are negative. Past Medical History Past Medical History: Diabetes Mellitus, GERD/Reflux, Hypertension Additional Past Medical History / Comment(s): Colitis, recurrent diarrhea, hyperglycemia, chronic back pain, recurrent uti's, AMS, possible seizure History of Any Multi-Drug Resistant Organisms: None Reported Past Surgical History: No Surgical Hx Reported Past Anesthesia/Blood Transfusion Reactions: Unable to Obtain Past Psychological History: No Psychological Hx Reported Smoking Status: Former smoker Past Alcohol Use History: None Reported Past Drug Use History: None Reported - Past Family History Mother Family Medical History: Diabetes Mellitus General Exam Limitations: altered mental status General appearance: alert, in no apparent distress Head exam: Present: atraumatic, normocephalic, normal inspection Eye exam: Present: normal appearance, PERRL, EOMI. Absent: scleral icterus, conjunctival injection, periorbital swelling ENT exam: Present: normal exam, mucous membranes moist Neck exam: Present: normal inspection. Absent: tenderness, meningismus, lymphadenopathy Respiratory exam: Present: normal lung sounds bilaterally. Absent: respiratory distress, wheezes, rales, rhonchi, stridor Cardiovascular Exam: Present: regular rate, normal rhythm, normal heart sounds. Absent: systolic murmur, diastolic murmur, rubs, gallop, clicks GI/Abdominal exam: Present: soft, normal bowel sounds. Absent: distended, tenderness, guarding, rebound, rigid Extremities exam: Present: normal inspection, full ROM. Absent: pedal edema, joint swelling Back exam: Present: normal inspection Neurological exam: Present: alert, CN II-XII intact, other (Slow speech with infrequent verbal response) Expanded Neurological exam: Present: memory loss-recent event Patient oriented to: Present: person (So ridiculous), place ([facility] at [facility] unsure of name.). Absent: time Cranial nerves: EOM's Intact: Normal, Gag Reflex: Normal, Tongue Deviation: Normal Motor strength exam: RUE: 5, LUE: 5, RLE: 5, LLE: 5 Eye Response: (4) open spontaneously Motor Response: (6) obeys commands Verbal Response: (4) confused conversation [place] Total: 14 Psychiatric exam: Present: flat affect Skin exam: Present: warm, dry, intact, normal color. Absent: rash Course Vital Signs 02/14/22 14:31 Temperature 98.1 F Pulse Rate 71 Respiratory 16 Rate Blood Pressure 176/86 O2 Sat by Pulse 95 Oximetry Medical Decision Making - Medical Decision Making 76-year-old female presenting to the emergency room with her spouse with concerns of expression of suicidal thoughts without plan. Altered mental status noted but at recent baseline. Will check urinalysis to rule out UTI otherwise no further diagnostic imaging or laboratory testing indicated. Urinalysis does show evidence of likely resolving urinary tract infection; would not attributes to symptoms or alter plan for EPS evaluation. Will clear medically for EPS evaluation. Spouse and patient no longer wishing to wait for EPS evaluation. Patient without any voice of suicidal thoughts. Spouse heavily involved in her care and discuss safety plan. Resources for [facility] also provided. Will discharge home with follow-up closely with her primary care provider along with neurology as already scheduled. Will treat urinary tract infection as well. Return perimeters discussed at length with patient and spouse. Case discussed with DR. Rollins. - Lab Data Lab Results 02/14/22 Range/Units 17:16 Urine Color Yellow Urine Appearance Turbid H (Clear) Urine pH 7.0 (5.0-8.0) Ur Specific [place] 1.016 (1.001-1.035) Urine Protein Trace H (Negative) Urine Glucose (UA) Negative (Negative) Urine Ketones 2+ H (Negative) Urine Blood Trace H (Negative) Urine Nitrite Negative (Negative) Urine Bilirubin Negative (Negative) Urine Urobilinogen <2.0 (<2.0) mg/dL Ur Leukocyte Esterase Large H (Negative) Urine RBC 2 (0-5) /hpf Urine WBC 29 H (0-5) /hpf Ur Squamous Epith Cells <1 (0-4) /hpf Amorphous Sediment Occasional H (None) /hpf Urine Bacteria Rare H (None) /hpf Urine Mucus Few H (None) /hpf Disposition Clinical Impression: UTI (urinary tract infection), Altered mental status Disposition: HOME SELF-CARE Condition: Stable Instructions (If sedation given, give patient instructions): Urinary Tract Infection in Women (ED), Altered Mental Status (ED), Depression in Older Adults (ED) Additional Instructions: Please follow up with your primary care provider and keep up your upcoming neurology appointment. Please complete the course of antibiotics. Please maintain safety keeping medications and sharps secured. If any changes in mood or behavior please return to the emergency room immediately or call 911. Please return to the Emergency Department if symptoms worsen or any other concerns. Prescriptions: Sulfamethox-Tmp 800-160Mg [Bactrim DS 800-160 mg] 1 tab PO Q12HR 5 Days #10 tab Is patient prescribed a controlled substance at d/c from ED?: No Referrals: Ankush Thomas MD [Primary Care Provider] - 1-2 days Time of Disposition: 20:38
[2022-02-14 17:51] LABS: Amorphous Sediment,Urine Occasional /hpf; Appearance,Urine Turbid (Clear); Bacteria,Urine Rare /hpf; Bilirubin,Urine Negative (Negative); Blood,Urine Trace (Negative); Color,Urine Yellow; Glucose,Urine (UA) Negative (Negative); Ketones,Urine 2+ (Negative); Leukocyte Esterase,Urine Large (Negative); Mucus,Urine Few /hpf; Nitrite,Urine Negative (Negative); Protein,Urine Trace (Negative); RBC,Urine 2 /hpf (0-5); Specific Gravity,Urine 1.016 (1.001-1.035); Squamous Epithelial Cell,Urine <1 /hpf (0-4); Urobilinogen,Urine <2.0 mg/dL (<2.0); WBC,Urine 29 /hpf (0-5)
== END 2022-02-14 20:51 | disposition home or self-care (01) ==
LOC: EC 14:21
DX: N39.0 Urinary tract infection, site not specified (principal); R41.82 Altered mental status, unspecified; E11.9 Type 2 diabetes mellitus without complications; I10 Essential (primary) hypertension; K21.9 Gastro-esophageal reflux disease without esophagitis; Z88.1 Allergy status to other antibiotic agents
CPT/HCPCS: 81001; 87086; 99285

== ENCOUNTER → 2022-02-28 | Outpatient (CLI) | payer MEDICARE | END | disposition home or self-care (01) | LOC: LABWHC1 09:33 | PROVIDERS: ATTEND Psychiatry & Neurology Neurology | DX: R56.9 Unspecified convulsions (principal) | CPT/HCPCS: 36415; 80164 ==

== ENCOUNTER → 2022-04-03 | Outpatient (CLI) | payer MEDICARE | END | disposition home or self-care (01) | LOC: LABWHC1 08:46 | PROVIDERS: ATTEND Psychiatry & Neurology Neurology | DX: R56.9 Unspecified convulsions (principal) | CPT/HCPCS: 36415; 80164 ==

== ENCOUNTER → 2022-05-03 | Outpatient (CLI) | payer MEDICARE ==
--- NOTE | 2022-05-04 15:00 | BD ---
EXAMINATION TYPE: Axial Bone Density DATE OF EXAM: 05/03/2022 COMPARISON: NONE CLINICAL HISTORY: 76 years year old Female. ICD-10 CODE: M81.0 AGE-RELATED OSTEOPOROSIS Height: 4 FT 10 1/5 IN Weight: 132 FRAX RISK QUESTIONS: Alcohol (3 or more units per day): NO Family History (Parent hip fracture): NO Glucocorticoids (More than 3mos): NO (Ex: prednisone, prednisolone, methylprednisolone, dexamethasone, and hydrocortisone). History of Fracture in Adulthood: NO Secondary Osteoporosis: 1. Type 1 Diabetes: NO 2. Hyperthyroidism: NO 3. Menopause before 45: NO 4. Malnutrition: NO 5. Chronic liver disease: NO Rheumatoid Arthritis: NO Current Tobacco Use: NO RISK FACTORS HISTORY OF: Surgery to Spine/Hip(right/left)/Wrist (right/left): NO Family History of Osteoporosis: NO Active: YES Diet low in dairy products/other sources of calcium: NO Postmenopausal woman: YES Take estrogen and/or progesterone medications: NO Lost more than 2 inches in height since high school: YES Frequent falls: NO Poor Health: GOOD Hyperparathyroidism: NO Adrenal Insufficiency: NO MEDICATIONS: Additional Medications: SEIZURE MEDS, VITAMINS,MAGNESIUM Additional History: EXAM MEASUREMENTS: Bone mineral densitometry was performed using the LUXA System. Bone mineral density as measured about the Lumbar spine is: ----- L1-L4(G/cm2): 1.016 T Score Values are as follows: ----- L1: -1.5 ----- L2: -2.8 ----- L3: -1.7 ----- L4: -0.1 ----- L1-L4: -1.4 BASELINE Bone mineral density about the R hip (g/cm2): 0.844 Bone mineral density about the L hip (g/cm2): 0.860 T Score values are as follows: -----R Neck: -1.4 -----L Neck: -1.3 -----R Total: -1.3 -----L Total: -1.2 BASELINE FRAX%s: The graph provided illustrates a 10.8 % chance for a major osteoporotic fx and a 20 % chance for the hips probability for fx in 10 years time. IMPRESSION: Osteopenia (T Score between -2.5 and -1). There is slightly increased risk of fracture and the patient may be considered for treatment. Re-Screen 2-5 years. NOTE: T-SCORE=SD OF THE YOUNG ADULT MEAN.
--- NOTE | 2022-05-04 18:57 | MM ---
Reason for Exam: Screening (asymptomatic). Patient History: Menarche at age 16. First Full-Term at age 37. Late child-bearing (after 30). Postmenopausal. Risk Values: Mary 5 year model risk: 2.2%. NCI Lifetime model risk: 5.1%. Prior Study Comparison: No prior studies available for comparison. Tissue Density: There are scattered fibroglandular densities. Findings: Analyzed By CAD. There are three circumscribed 5 mm and smaller nodules noted in the upper outer quadrant of the left breast, typical of intramammary lymph nodes. As no priors are available for comparison purposes, a six-month follow-up is recommended to reassess. Otherwise, no suspicious microcalcification or discrete abnormality is seen. Overall Assessment: Probably benign, BI-RAD 3 Management: Diagnostic Mammogram of the left breast in 6 months. 1. Patient should continue monthly self breast exams. 2. A clinical breast exam by your physician is recommended on an annual basis. 3. This exam should not preclude additional follow-up of suspicious palpable abnormalities. Electronically signed and approved by: Lorena Mirza M.D. Radiologist
== END | disposition home or self-care (01) ==
LOC: RADBDWWP 15:56
PROVIDERS: ATTEND Internal Medicine Geriatric Medicine
DX: Z12.31 Encounter for screening mammogram for malignant neoplasm of breast (principal); M85.89 Other specified disorders of bone density and structure, multiple sites; Z78.0 Asymptomatic menopausal state
CPT/HCPCS: 77067; 77080

== ENCOUNTER 2022-10-07 12:20 | Emergency (ER) | payer MEDICARE ==
[2022-10-07] MEDS ORDERED: SODIUM CHLORIDE 0.9% 1,000 ML IV ONE (12:47)
[2022-10-07] MEDS ORDERED: KETOROLAC 15 MG/ML 1 ML VIAL IVP STA (12:47)
[2022-10-07 12:52] VITALS: TEMP 98
--- NOTE | 2022-10-07 12:53 | ED ---
General Adult HPI - General Chief complaint: Back Pain/Injury Stated complaint: back pain Time Seen by Provider: 10/07/22 12:39 Source: patient Mode of arrival: wheelchair Limitations: physical limitation - History of Present Illness Initial comments: Patient is a 77-year-old female presenting with chief complaint of headache and back pain. Patient has had recurrent episodes of pain similar to this after a fall that occurred 1 year ago. states that since that fall patient received extensive workup, she now has some baseline confusion and memory difficulties. He states that she is at her baseline today. Patient states that she had an episode of diarrhea this morning. She admits to pain that goes all the way down her back. She also admits to pain in the right shoulder which is the shoulder that she fell on with the initial injury. She denies any chest pain, difficulty breathing, abdominal pain, fever, chills, palpitations. She s tates that at home she took a Tylenol which was helpful in alleviating some of her symptoms. - Related Data Home Medications Medication Instructions Recorded Confirmed clonazePAM [KlonoPIN] 0.25 mg PO BID 02/14/22 02/14/22 levETIRAcetam [Keppra] 500 mg PO Q12H 02/14/22 02/14/22 Previous Rx's Medication Instructions Recorded Sulfamethox-Tmp 800-160Mg [Bactrim 1 tab PO Q12HR 5 Days #10 tab 02/14/22 DS 800-160 mg] Cephalexin [Keflex] 500 mg PO Q12HR 7 Days #14 cap 10/07/22 Allergies Allergy/AdvReac Type Severity Reaction Status Date / Time amoxicillin AdvReac Diarrhea Verified 10/07/22 12:33 Review of Systems ROS Statement: Those systems with pertinent positive or pertinent negative responses have been documented in the HPI. ROS Other: All systems not noted in ROS Statement are negative. Past Medical History Past Medical History: Diabetes Mellitus, GERD/Reflux, Hypertension Additional Past Medical History / Comment(s): Colitis, recurrent diarrhea, hyperglycemia, chronic back pain, recurrent uti's, AMS, possible seizure History of Any Multi-Drug Resistant Organisms: None Reported Past Surgical History: No Surgical Hx Reported Past Anesthesia/Blood Transfusion Reactions: Unable to Obtain Past Psychological History: No Psychological Hx Reported Smoking Status: Former smoker Past Alcohol Use History: None Reported Past Drug Use History: None Reported - Past Family History Mother Family Medical History: Diabetes Mellitus General Exam Limitations: physical limitation General appearance: alert, in no apparent distress Head exam: Present: atraumatic, normocephalic, normal inspection Eye exam: Present: normal appearance, PERRL, EOMI. Absent: scleral icterus, conjunctival injection, periorbital swelling Neck exam: Present: normal inspection, full ROM Respiratory exam: Present: normal lung sounds bilaterally. Absent: respiratory distress, wheezes, rales, rhonchi, stridor Cardiovascular Exam: Present: regular rate, normal rhythm, normal heart sounds. Absent: systolic murmur, diastolic murmur, rubs, gallop, clicks Neurological exam: Present: alert, altered (baseline) Expanded Speech: Present: fluid speech Eye Response: (4) open spontaneously Motor Response: (6) obeys commands Verbal Response: (5) oriented Whitney Total: 15 Psychiatric exam: Present: normal affect, normal mood Skin exam: Present: warm, dry, intact, normal color. Absent: rash Course Vital Signs 10/07/22 10/07/22 10/07/22 12:30 12:43 12:49 Temperature 98.3 F 98.0 F Pulse Rate 94 88 Respiratory 18 18 Rate Blood Pressure 177/78 167/96 O2 Sat by Pulse 98 99 99 Oximetry 10/07/22 10/07/22 10/07/22 13:00 13:30 14:00 Temperature Pulse Rate Respiratory 18 18 18 Rate Blood Pressure 167/96 172/95 184/90 O2 Sat by Pulse 98 99 98 Oximetry 10/07/22 10/07/22 10/07/22 14:30 15:00 15:30 Temperature Pulse Rate 82 Respiratory 19 Rate Blood Pressure 145/122 170/99 166/92 O2 Sat by Pulse 96 98 98 Oximetry 10/07/22 10/07/22 10/07/22 16:00 17:00 17:08 Temperature Pulse Rate 88 Respiratory 18 Rate Blood Pressure 173/87 122/97 154/66 O2 Sat by Pulse 97 100 Oximetry Medical Decision Making - Medical Decision Making Was pt. sent in by a medical professional or institution (, PA, BIOMEDICAL ENGINEERING TECHNOLOGIST, urgent care, hospital, or usp...) When possible be specific @ -No Did you speak to anyone other than the patient for history (EMS, parent, family, police, friend...)? What history was obtained from this source @ -History is supplemented by the patient's Did you review nursing and triage notes (agree or disagree)? Why? @ -I reviewed and agree with nursing and triage notes Were old charts reviewed (outside hosp., previous admission, EMS record, old EKG, old radiological studies, urgent care reports/EKG's, usp records)? Report findings @ -No old charts were reviewed Differential Diagnosis (chest pain, altered mental status, abdominal pain women, abdominal pain men, vaginal bleeding, weakness, fever, dyspnea, syncope, headache, dizziness, GI bleed, back pain, seizure, CVA, palpatations, mental health, musculoskeletal)? @ - MDM Differential Back Pain: Strain, zoster, cauda equina syndrome, epidural abscess, vertebral osteomyelitis, discitis, fracture, subluxation, disc herniation, DJD, spinal stenosis, dissection, AAA, pancreatitis, peptic ulcer disease, pyelonephritis, kidney stone this is not meant to be an all-inclusive list. EKG interpreted by me (3pts min.). @ -As above X-rays interpreted by me (1pt min.). @ -None done CT interpreted by me (1pt min.). @ -None done U/S interpreted by me (1pt. min.). @ -None done What testing was considered but not performed or refused? (CT, X-rays, U/S, labs)? Why? @ -None What meds were considered but not given or refused? Why? @ -None Did you discuss the management of the patient with other professionals (sathya barrera i.e. , PA, BIOMEDICAL ENGINEERING TECHNOLOGIST, lab, RT, psych nurse, social insurance adviser, lawyer criminal, teacher, aviation tactical readiness officer, watch case polisher)? Give summary @ -No Was smoking cessation discussed for >3mins.? @ -No Was critical care preformed (if so, how long)? @ -No Were there social determinants of health that impacted care today? How? (Homelessness, low income, unemployed, alcoholism, drug addiction, transpor tation, low edu. Level, literacy, decrease access to med. care, retirement, rehab)? @ -No Was there de-escalation of care discussed even if they declined (Discuss DNR or withdrawal of care, Hospice)? DNR status @ -No What co-morbidities impacted this encounter? (DM, HTN, Smoking, COPD, CAD, Cancer, CVA, ARF, Chemo, Hep., AIDS, mental health diagnosis, sleep apnea, morbid obesity)? @ -None Was patient admitted / discharged? Hospital course, mention meds given and route, prescriptions, significant lab abnormalities, going to OR and other pertinent info. @ -Patient is a 77-year-old female presenting with chief complaint of headache and back pain. Patient has had recurrent bouts of this pain since a fall that occurred a year ago. states that she is at her baseline and this appears to be one of her regular episodes. She took a Tylenol at home which she states did help alleviate some of her pain. Physical examination no focal neurological deficits, heart and lungs are clear to auscultation. She is having no chest pain, difficult breathing, or abdominal pain. Lab work shows a WBC 13.6. Urine is consistent with UTI, patient will be treated with Keflex. Patient reports improvement in her pain after Toradol and Tylenol 3. Educated on today's finding and treatment plan. Patient and are in agreement with plan. Follow-up with PCP. Report back to ER with any new or worsening symptoms. Discussed return parameters and answered all questions. Patient conveyed verbal understanding and agreed to the plan. I discussed this case in detail with my attending Dr. Gomez Undiagnosed new problem with uncertain prognosis? @ -No Drug Therapy requiring intensive monitoring for toxicity (Heparin, Nitro, Insulin, Cardizem)? @ -No Were any procedures done? @ -No Diagnosis/symptom? @ -UTI Acute, or Chronic, or Acute on Chronic? @ -Acute Uncomplicated (without systemic symptoms) or Complicated (systemic symptoms)? @ -Uncomplicated Side effects of treatment? @ -No Exacerbation, Progression, or Severe Exacerbation? @ -No Poses a threat to life or bodily function? How? (Chest pain, USA, AR, pneumonia, PE, COPD, DKA, ARF, appy, cholecystitis, CVA, Diverticulitis, Homicidal, Suicidal, threat to staff... and all critical care pts) @ -No - Lab Data Result diagrams: 10/07/22 13:29 10/07/22 13:29 Lab Results 10/07/22 10/07/22 10/07/22 Range/Units 13:29 13:29 16:02 WBC 13.6 H (3.8-10.6) k/uL RBC 4.53 (3.80-5.40) m/uL Hgb 13.5 (11.4-16.0) gm/dL Hct 38.6 (34.0-46.0) % MCV 85.3 (80.0-100.0) fL MCH 29.8 (25.0-35.0) pg MCHC 34.9 (31.0-37.0) g/dL RDW 13.1 (11.5-15.5) % Plt Count 319 (150-450) k/uL MPV 7.5 Neutrophils % 79 % Lymphocytes % 15 % Monocytes % 4 % Eosinophils % 0 % Basophils % 0 % Neutrophils # 10.7 H (1.3-7.7) k/uL Lymphocytes # 2.0 (1.0-4.8) k/uL Monocytes # 0.6 (0-1.0) k/uL Eosinophils # 0.1 (0-0.7) k/uL Basophils # 0.1 (0-0.2) k/uL Sodium 139 (137-145) mmol/L Potassium 3.8 (3.5-5.1) mmol/L Chloride 104 (98-107) mmol/L Carbon Dioxide 25 (22-30) mmol/L Anion Gap 10 mmol/L BUN 13 (7-17) mg/dL Creatinine 0.55 (0.52-1.04) mg/dL Est GFR (CKD-EPI)AfAm >90 (>60 ml/min/1.73 sqM) Est GFR (CKD-EPI)NonAf >90 (>60 ml/min/1.73 sqM) Glucose 98 (74-99) mg/dL Calcium 9.4 (8.4-10.2) mg/dL Magnesium 2.1 (1.6-2.3) mg/dL Total Bilirubin 0.9 (0.2-1.3) mg/dL AST 40 H (14-36) U/L ALT 26 (4-34) U/L Alkaline Phosphatase 117 (38-126) U/L Total Protein 7.9 (6.3-8.2) g/dL Albumin 4.7 (3.5-5.0) g/dL Urine Color Light Yellow Urine Appearance Clear (Clear) Urine pH 8.0 (5.0-8.0) Ur Specific Viper 1.008 (1.001-1.035) Urine Protein Negative (Negative) Urine Glucose (UA) Negative (Negative) Urine Ketones 1+ H (Negative) Urine Blood Small H (Negative) Urine Nitrite Negative (Negative) Urine Bilirubin Negative (Negative) Urine Urobilinogen <2.0 (<2.0) mg/dL Ur Leukocyte Esterase Large H (Negative) Urine RBC 1 (0-5) /hpf Urine WBC 34 H (0-5) /hpf Urine WBC Clumps Few H (None) /hpf Urine Bacteria Rare H (None) /hpf Disposition Clinical Impression: UTI (urinary tract infection), Chronic pain Disposition: HOME SELF-CARE Condition: Good Instructions (If sedation given, give patient instructions): Urinary Tract Infection in Women (ED), Chronic Pain (ED), Acute Headache (ED) Additional Instructions: Follow-up with PCP. Report back to ER with any new or worsening symptoms. Take medication as prescribed. Prescriptions: Cephalexin [Keflex] 500 mg PO Q12HR 7 Days #14 cap Is patient prescribed a controlled substance at d/c from ED?: No Referrals: Ankush Thomas MD [Primary Care Provider] - 1-2 days Time of Disposition: 16:44
[2022-10-07 13:39] LABS: Basophils # (A) 0.1 k/uL (0-0.2); Basophils % (A) 0 %; Eosinophils # (A) 0.1 k/uL (0-0.7); Eosinophils % (A) 0 %; HCT 38.6 % (34.0-46.0); HGB 13.5 gm/dL (11.4-16.0); Lymphocytes % (A) 15 %; MCH 29.8 pg (25.0-35.0); MCHC 34.9 g/dL (31.0-37.0); MCV 85.3 fL (80.0-100.0); Mean Platelet Volume 7.5; Monocytes # (A) 0.6 k/uL (0-1.0); Monocytes % (A) 4 %; Neutrophils # (A) 10.7 k/uL (1.3-7.7); Neutrophils % (A) 79 %; Platelet Count 319 k/uL (150-450); RBC 4.53 m/uL (3.80-5.40); RDW 13.1 % (11.5-15.5); WBC 13.6 k/uL (3.8-10.6)
[2022-10-07 13:47] LABS: ALT 26 U/L (4-34); African American GFR (CKD) >90 (>60 ml/min/1.73 sqM); Albumin 4.7 g/dL (3.5-5.0); Anion Gap 10 mmol/L; Blood Urea Nitrogen 13 mg/dL (7-17); Calcium 9.4 mg/dL (8.4-10.2); Carbon Dioxide 25 mmol/L (22-30); Chloride 104 mmol/L (98-107); Glucose 98 mg/dL (74-99); Non-African American GFR(CKD) >90 (>60 ml/min/1.73 sqM); Sodium 139 mmol/L (137-145); Total Bilirubin 0.9 mg/dL (0.2-1.3); Total Protein 7.9 g/dL (6.3-8.2)
[2022-10-07 13:50] LABS: AST 40 U/L (14-36); Alkaline Phosphatase 117 U/L (38-126); Magnesium 2.1 mg/dL (1.6-2.3); Potassium 3.8 mmol/L (3.5-5.1)
[2022-10-07] MEDS ORDERED: MORPHINE SULFATE 4 MG/ML SYRINGE IVP STA (14:05)
[2022-10-07] MEDS ORDERED: ONDANSETRON 4 MG/2 ML VIAL IVP STA (15:39)
[2022-10-07] MEDS ORDERED: Acetaminophen-Codeine 300-30mg TAB PO STA (15:39)
[2022-10-07 16:30] LABS: Appearance,Urine Clear (Clear); Bacteria,Urine Rare /hpf; Bilirubin,Urine Negative (Negative); Blood,Urine Small (Negative); Color,Urine Light Yellow; Glucose,Urine (UA) Negative (Negative); Ketones,Urine 1+ (Negative); Leukocyte Esterase,Urine Large (Negative); Nitrite,Urine Negative (Negative); Protein,Urine Negative (Negative); RBC,Urine 1 /hpf (0-5); Specific Gravity,Urine 1.008 (1.001-1.035); Urobilinogen,Urine <2.0 mg/dL (<2.0); WBC,Urine 34 /hpf (0-5)
[2022-10-07 17:08] VITALS: BP 154/66; PULSE 88; RESP 18
== END 2022-10-07 17:15 | disposition home or self-care (01) ==
LOC: EC 12:20
DX: G89.29 Other chronic pain (principal); N39.0 Urinary tract infection, site not specified; I10 Essential (primary) hypertension; E11.9 Type 2 diabetes mellitus without complications; Z79.899 Other long term (current) drug therapy; Z88.0 Allergy status to penicillin; Z87.891 Personal history of nicotine dependence
CPT/HCPCS: 36415; 80053; 83735; 85025; 81001; 87086; 99283; J2405; J1885

== ENCOUNTER 2022-10-13 09:47 | Inpatient (IN) | payer MEDICARE ==
[2022-10-13 09:54] LABS: Glucose,Whole Blood 168 mg/dL (70-110)
[2022-10-13] MEDS ORDERED: LORazepam 2 MG/ML INJ IV STA (10:00)
[2022-10-13] MEDS ORDERED: SODIUM CHLORIDE 0.9% 500 ML 500 ML IV ONE ×2 (10:03→12:26)
--- NOTE | 2022-10-13 10:11 | ED ---
General Adult HPI - General Chief complaint: Altered Mental Status Stated complaint: Altered Mental Status Time Seen by Provider: 10/13/22 09:55 Source: patient, EMS, RN notes reviewed, old records reviewed Mode of arrival: EMS Limitations: altered mental status, physical limitation - History of Present Illness Initial comments: This is a 77-year-old female who presents emergency Department because of altered mental status. According to the last time she was seen normal was last night at 10 PM this morning he found her on the ground and she was just screaming out. Did not appear to show any facial droop or any lack of movement of her extremities. Patient was just screaming and moaning. According to she has had a closed head injury in the past. also states that she is being treated for urinary tract infection. Patient is unable to give any further history and the is not back in the room at this time - Related Data Home Medications Medication Instructions Recorded Confirmed Baclofen [Lioresal] 10 mg PO DAILY PRN 10/13/22 10/13/22 Baclofen [Lioresal] 10 mg PO HS 10/13/22 10/13/22 Lacosamide [Vimpat] 100 mg PO BID 10/13/22 10/13/22 Propranolol [Inderal] 10 mg PO BID@0800,1400 10/13/22 10/13/22 Allergies Allergy/AdvReac Type Severity Reaction Status Date / Time amoxicillin AdvReac Diarrhea Verified 10/13/22 10:20 Review of Systems ROS Statement: Those systems with pertinent positive or pertinent negative responses have been documented in the HPI. ROS Other: All systems not noted in ROS Statement are negative. Past Medical History Past Medical History: Diabetes Mellitus, GERD/Reflux, Hypertension Additional Past Medical History / Comment(s): Colitis, recurrent diarrhea, hyperglycemia, chronic back pain, recurrent uti's, AMS, possible seizure History of Any Multi-Drug Resistant Organisms: None Reported Past Surgical History: No Surgical Hx Reported Past Anesthesia/Blood Transfusion Reactions: Unable to Obtain Past Psychological History: No Psychological Hx Reported Smoking Status: Former smoker Past Alcohol Use History: None Reported Past Drug Use History: None Reported - Past Family History Mother Family Medical History: Diabetes Mellitus General Exam - General Exam Comments Initial Comments: GENERAL: Patient is well-developed and well-nourished. Patient is nontoxic and well-hyd rated and is in mild distress. ENT: Neck is soft and supple. No significant lymphadenopathy is noted. Oropharynx is clear. Moist mucous membranes. Neck has full range of motion without eliciting any pain. EYES: The sclera were anicteric and conjunctiva were pink and moist. Extraocular movements were intact and pupils were equal round and reactive to light. Eyelids were unremarkable. PULMONARY: Unlabored respirations. Good breath sounds bilaterally. No audible rales rhonchi or wheezing was noted. CARDIOVASCULAR: There is a regular rate and rhythm without any murmurs gallops or rubs. ABDOMEN: Soft and nontender with normal bowel sounds. SKIN: Skin is clear with no lesions or rashes and otherwise unremarkable. NEUROLOGIC: Patient is alert and oriented x3. Cranial nerves II through XII are grossly intact. Motor and sensory are also intact. Normal speech, volume and content. Symmetrical smile. MUSCULOSKELETAL: Normal extremities with adequate strength and full range of motion. LYMPHATICS: No significant lymphadenopathy is noted PSYCHIATRIC: Normal psychiatric evaluation. Limitations: altered mental status, physical limitation Course Vital Signs 10/13/22 10/13/22 10/13/22 09:49 10:22 11:47 Temperature 96.8 F L Pulse Rate 120 H 129 H 111 H Respiratory 18 18 18 Rate Blood Pressure 176/96 203/127 171/86 O2 Sat by Pulse 98 96 97 Oximetry 10/13/22 10/13/22 10/13/22 12:37 13:52 14:31 Temperature Pulse Rate 116 H 122 H 113 H Respiratory 22 18 18 Rate Blood Pressure 175/89 167/90 179/85 O2 Sat by Pulse 95 97 95 Oximetry Procedures - Sepsis Sepsis Focused Exam #1 Time Sepsis Criteria Met: 14:30 Sepsis Focused Exam Date: 10/13/22 Sepsis Focused Exam Time: 15:20 Sepsis Focused Exam Complete: Yes Vital Signs & RN Notes Reviewed: Yes Capillary Refill: < 2 Seconds: Fingers Peripheral Pulses: Normal: Radial (R) Skin Color: Normal for Patient Respiratory Exam: normal lung sounds Cardiovascular Exam: tachycardia Medical Decision Making - Medical Decision Making EKG was interpreted by myself shows sinus tachycardia at [address] interval 248 QRS 7070 QT interval is 312 QTC is 386. EKG shows no ST segment elevation or depression. Was pt. sent in by a medical professional or institution (, PA, EARTH MOVING MACHINE OPERATOR, urgent care, hospital, or skilled nursing...) When possible be specific @ -No Did you speak to anyone other than the patient for history (EMS, parent, family, police, friend...)? What history was obtained from this source @ -EMS gave all of the history and then the showed up and gave further history. Patient was unable to give any history Did you review nursing and triage notes (agree or disagree)? Why? @ -I reviewed and agree with nursing and triage notes Were old charts reviewed (outside hosp., previous admission, EMS record, old EKG, old radiological studies, urgent care reports/EKG's, skilled nursing records)? Report findings @ -I reviewed prior lab work and previous visits on this patient Differential Diagnosis (chest pain, altered mental status, abdominal pain women, abdominal pain men, vaginal bleeding, weakness, fever, dyspnea, syncope, headache, dizziness, GI bleed, back pain, seizure, CVA, palpatations, mental health, musculoskeletal)? @ -Differential Altered Mental Status: Hypoglycemia, DKA, hypercapnia, ETOH, overdose, CO poisoning, trauma, myxedema coma, HTN encephalopathy, infection, encephalitis, psychosis, intercranial hemorrhage, hepatic encephalopathy, meningitis, CVA, this is not meant to be an all-inclusive list EKG interpreted by me (3pts min.). @ -As above X-rays interpreted by me (1pt min.). @ -Chest x-ray was interpreted by myself I see no acute abnormality. CT interpreted by me (1pt min.). @ -CT of the brain and C-spine was interpreted by myself I see no acute abnormality CT of the abdomen and pelvis was interpreted by myself see some distal rectal inflammation. U/S interpreted by me (1pt. min.). @ -None done What testing was considered but not performed or refused? (CT, X-rays, U/S, labs)? Why? @ -None What meds were considered but not given or refused? Why? @ -None Did you discuss the management of the patient with other professionals (professionals i.e. , PA, EARTH MOVING MACHINE OPERATOR, lab, RT, psych nurse, social psychologist, vault custodian, teacher, traffic maintenance officer, case assembler)? Give summary @ -Spoke with the [facility] and they agreed to admit the p atient to the patient wrote admitting orders Was smoking cessation discussed for >3mins.? @ -No Was critical care preformed (if so, how long)? @ -No Were there social determinants of health that impacted care today? How? (Homelessness, low income, unemployed, alcoholism, drug addiction, transportation, low edu. Level, literacy, decrease access to med. care, residential, rehab)? @ -No Was there de-escalation of care discussed even if they declined (Discuss DNR or withdrawal of care, Hospice)? DNR status @ -No What co-morbidities impacted this encounter? (DM, HTN, Smoking, COPD, CAD, Cancer, CVA, ARF, Chemo, Hep., AIDS, mental health diagnosis, sleep apnea, morbid obesity)? @ -None Was patient admitted / discharged? Hospital course, mention meds given and route, prescriptions, significant lab abnormalities, going to OR and other pertinent info. @ -Patient continued to be altered throughout her duration in the hospital. Patient's CT showed possible infection of the colon patient was started on antibiotics. Undiagnosed new problem with uncertain prognosis? @ -No Drug Therapy requiring intensive monitoring for toxicity (Heparin, Nitro, Insulin, Cardizem)? @ -No Were any procedures done? @ -No Diagnosis/symptom? @ -Sepsis Acute, or Chronic, or Acute on Chronic? @ -Acute Uncomplicated (without systemic symptoms) or Complicated (systemic symptoms)? @ -Complicated Side effects of treatment? @ -No Exacerbation, Progression, or Severe Exacerbation? @ -No Poses a threat to life or bodily function? How? (Chest pain, [place], [place], pneumonia, PE, COPD, DKA, ARF, appy, cholecystitis, CVA, Diverticulitis, Homicidal, Suicidal, threat to staff... and all critical care pts) @ -Yes this could lead to hypoperfusion and end organ dysfunction Diagnosis/symptom? @ -Colitis Acute, or Chronic, or Acute on Chronic? @ -Acute Uncomplicated (without systemic symptoms) or Complicated (systemic symptoms)? @ -Complicated Side effects of treatment? @ -none Exacerbation, Progression, or Severe Exacerbation] @ -No Poses a threat to life or bodily function? @ -no Diagnosis/symptom? @ -Altered mental status Acute, or Chronic, or Acute on Chronic? @ -Acute Uncomplicated (without systemic symptoms) or Complicated (systemic symptoms)? @ -Complicated Side effects of treatment? @ -none Exacerbation, Progression, or Severe Exacerbation] @ -no Poses a threat to life or bodily function? @ -[no - Lab Data Result diagrams: 10/13/22 10:07 10/13/22 10:07 Lab Results 10/13/22 10/13/22 10/13/22 Range/Units 09:52 10:07 10:07 WBC 24.0 H (3.8-10.6) k/uL RBC 4.55 (3.80-5.40) m/uL Hgb 13.8 (11.4-16.0) gm/dL Hct 39.7 (34.0-46.0) % MCV 87.3 (80.0-100.0) fL MCH 30.4 (25.0-35.0) pg MCHC 34.8 (31.0-37.0) g/dL RDW 12.7 (11.5-15.5) % Plt Count 352 (150-450) k/uL MPV 7.3 Neutrophils % 91 % Lymphocytes % 5 % Monocytes % 4 % Eosinophils % 0 % Basophils % 0 % Neutrophils # 21.8 H (1.3-7.7) k/uL Lymphocytes # 1.1 (1.0-4.8) k/uL Monocytes # 0.9 (0-1.0) k/uL Eosinophils # 0.1 (0-0.7) k/uL Basophils # 0.0 (0-0.2) k/uL PT 10.5 (9.0-12.0) sec INR 1.0 (<1.2) APTT 17.5 L (22.0-30.0) sec Sodium (137-145) mmol/L Potassium (3.5-5.1) mmol/L Chloride (98-107) mmol/L Carbon Dioxide (22-30) mmol/L Anion Gap mmol/L BUN (7-17) mg/dL Creatinine (0.52-1.04) mg/dL Est GFR (CKD-EPI)AfAm (>60 ml/min/1.73 sqM) Est GFR (CKD-EPI)NonAf (>60 ml/min/1.73 sqM) Glucose (74-99) mg/dL POC Glucose (mg/dL) 168 H (70-110) mg/dL POC Glu Adjunct Business Instructor ID Cathie Tolbert Lactic Ac Sepsis Rflx Plasma Lactic Acid Andi (0.7-2.0) mmol/L Calcium (8.4-10.2) mg/dL Total Bilirubin (0.2-1.3) mg/dL AST (14-36) U/L ALT (4-34) U/L Alkaline Phosphatase (38-126) U/L Troponin I (0.000-0.034) ng/mL Total Protein (6.3-8.2) g/dL Albumin (3.5-5.0) g/dL Urine Color Urine Appearance (Clear) Urine pH (5.0-8.0) Ur Specific Barnard (1.001-1.035) Urine Protein (Negative) Urine Glucose (UA) (Negative) Urine Ketones (Negative) Urine Blood (Negative) Urine Nitrite (Negative) Urine Bilirubin (Negative) Urine Urobilinogen (<2.0) mg/dL Ur Leukocyte Esterase (Negative) Urine Opiates Screen (NotDetected) Ur Oxycodone Screen (NotDetected) Urine Methadone Screen (NotDetected) Ur Propoxyphene Screen (NotDetected) Ur Barbiturates Screen (NotDetected) U Tricyclic Antidepress (NotDetected) Ur Phencyclidine Scrn (NotDetected) Ur Amphetamines Screen (NotDetected) U Methamphetamines Scrn (NotDetected) U Benzodiazepines Scrn (NotDetected) Urine Cocaine Screen (NotDetected) U Marijuana (THC) Screen (NotDetected) 10/13/22 10/13/22 10/13/22 Range/Units 10:07 10:07 10:07 WBC (3.8-10.6) k/uL RBC (3.80-5.40) m/uL Hgb (11.4-16.0) gm/dL Hct (34.0-46.0) % MCV (80.0-100.0) fL MCH (25.0-35.0) pg MCHC (31.0-37.0) g/dL RDW (11.5-15.5) % Plt Count (150-450) k/uL MPV Neutrophils % % Lymphocytes % % Monocytes % % Eosinophils % % Basophils % % Neutrophils # (1.3-7.7) k/uL Lymphocytes # (1.0-4.8) k/uL Monocytes # (0-1.0) k/uL Eosinophils # (0-0.7) k/uL Basophils # (0-0.2) k/uL PT (9.0-12.0) sec INR (<1.2) APTT (22.0-30.0) sec Sodium 139 (137-145) mmol/L Potassium 3.5 (3.5-5.1) mmol/L Chloride 103 (98-107) mmol/L Carbon Dioxide 18 L (22-30) mmol/L Anion Gap 18 mmol/L BUN 10 (7-17) mg/dL Creatinine 0.64 (0.52-1.04) mg/dL Est GFR (CKD-EPI)AfAm >90 (>60 ml/min/1.73 sqM) Est GFR (CKD-EPI)NonAf 88 (>60 ml/min/1.73 sqM) Glucose 148 H (74-99) mg/dL POC Glucose (mg/dL) (70-110) mg/dL POC Glu Adjunct Business Instructor ID Lactic Ac Sepsis Rflx Plasma Lactic Acid Andi (0.7-2.0) mmol/L Calcium 9.5 (8.4-10.2) mg/dL Total Bilirubin 0.6 (0.2-1.3) mg/dL AST 31 (14-36) U/L ALT 26 (4-34) U/L Alkaline Phosphatase 120 (38-126) U/L Troponin I <0.012 (0.000-0.034) ng/mL Total Protein 7.7 (6.3-8.2) g/dL Albumin 4.7 (3.5-5.0) g/dL Urine Color Yellow Urine Appearance Clear (Clear) Urine pH 6.5 (5.0-8.0) Ur Specific Barnard 1.013 (1.001-1.035) Urine Protein Trace H (Negative) Urine Glucose (UA) Negative (Negative) Urine Ketones 1+ H (Negative) Urine Blood Negative (Negative) Urine Nitrite Negative (Negative) Urine Bilirubin Negative (Negative) Urine Urobilinogen <2.0 (<2.0) mg/dL Ur Leukocyte Esterase Negative (Negative) Urine Opiates Screen Not Detected (NotDetected) Ur Oxycodone Screen Not Detected (NotDetected) Urine Methadone Screen Not Detected (NotDetected) Ur Propoxyphene Screen Not Detected (NotDetected) Ur Barbiturates Screen Not Detected (NotDetected) U Tricyclic Antidepress Not Detected (NotDetected) Ur Phencyclidine Scrn Not Detected (NotDetected) Ur Amphetamines Screen Not Detected (NotDetected) U Methamphetamines Scrn Not Detected (NotDetected) U Benzodiazepines Scrn Not Detected (NotDetected) Urine Cocaine Screen Not Detected (NotDetected) U Marijuana (THC) Screen Not Detected (NotDetected) 10/13/22 10/13/22 Range/Units 11:31 12:04 WBC (3.8-10.6) k/uL RBC (3.80-5.40) m/uL Hgb (11.4-16.0) gm/dL Hct (34.0-46.0) % MCV (80.0-100.0) fL MCH (25.0-35.0) pg MCHC (31.0-37.0) g/dL RDW (11.5-15.5) % Plt Count (150-450) k/uL MPV Neutrophils % % Lymphocytes % % Monocytes % % Eosinophils % % Basophils % % Neutrophils # (1.3-7.7) k/uL Lymphocytes # (1.0-4.8) k/uL Monocytes # (0-1.0) k/uL Eosinophils # (0-0.7) k/uL Basophils # (0-0.2) k/uL PT (9.0-12.0) sec INR (<1.2) APTT (22.0-30.0) sec Sodium (137-145) mmol/L Potassium (3.5-5.1) mmol/L Chloride (98-107) mmol/L Carbon Dioxide (22-30) mmol/L Anion Gap mmol/L BUN (7-17) mg/dL Creatinine (0.52-1.04) mg/dL Est GFR (CKD-EPI)AfAm (>60 ml/min/1.73 sqM) Est GFR (CKD-EPI)NonAf (>60 ml/min/1.73 sqM) Glucose (74-99) mg/dL POC Glucose (mg/dL) (70-110) mg/dL POC Glu Adjunct Business Instructor ID Lactic Ac Sepsis Rflx Y Plasma Lactic Acid Andi 4.3 H* (0.7-2.0) mmol/L Calcium (8.4-10.2) mg/dL Total Bilirubin (0.2-1.3) mg/dL AST (14-36) U/L ALT (4-34) U/L Alkaline Phosphatase (38-126) U/L Troponin I (0.000-0.034) ng/mL Total Protein (6.3-8.2) g/dL Albumin (3.5-5.0) g/dL Urine Color Urine Appearance (Clear) Urine pH (5.0-8.0) Ur Specific Barnard (1.001-1.035) Urine Protein (Negative) Urine Glucose (UA) (Negative) Urine Ketones (Negative) Urine Blood (Negative) Urine Nitrite (Negative) Urine Bilirubin (Negative) Urine Urobilinogen (<2.0) mg/dL Ur Leukocyte Esterase (Negative) Urine Opiates Screen (NotDetected) Ur Oxycodone Screen (NotDetected) Urine Methadone Screen (NotDetected) Ur Propoxyphene Screen (NotDetected) Ur Barbiturates Screen (NotDetected) U Tricyclic Antidepress (NotDetected) Ur Phencyclidine Scrn (NotDetected) Ur Amphetamines Screen (NotDetected) U Methamphetamines Scrn (NotDetected) U Benzodiazepines Scrn (NotDetected) Urine Cocaine Screen (NotDetected) U Marijuana (THC) Screen (NotDetected) Disposition Clinical Impression: Colitis, Altered mental status, Sepsis, Foreign body of left elbow Disposition: ADMITTED IP TO THIS HOSP Referrals: Ankush Thomas MD [Primary Care Provider] - 1-2 days Time of Disposition: 14:49
[2022-10-13 10:16] LABS: Basophils % (A) 0 %; Eosinophils # (A) 0.1 k/uL (0-0.7); Eosinophils % (A) 0 %; HCT 39.7 % (34.0-46.0); HGB 13.8 gm/dL (11.4-16.0); Lymphocytes # (A) 1.1 k/uL (1.0-4.8); Lymphocytes % (A) 5 %; MCH 30.4 pg (25.0-35.0); MCHC 34.8 g/dL (31.0-37.0); MCV 87.3 fL (80.0-100.0); Mean Platelet Volume 7.3; Monocytes # (A) 0.9 k/uL (0-1.0); Monocytes % (A) 4 %; Neutrophils # (A) 21.8 k/uL (1.3-7.7); Neutrophils % (A) 91 %; Platelet Count 352 k/uL (150-450); RBC 4.55 m/uL (3.80-5.40); RDW 12.7 % (11.5-15.5)
[2022-10-13 10:25] LABS: ALT 26 U/L (4-34); AST 31 U/L (14-36); African American GFR (CKD) >90 (>60 ml/min/1.73 sqM); Albumin 4.7 g/dL (3.5-5.0); Alkaline Phosphatase 120 U/L (38-126); Anion Gap 18 mmol/L; Blood Urea Nitrogen 10 mg/dL (7-17); Calcium 9.5 mg/dL (8.4-10.2); Carbon Dioxide 18 mmol/L (22-30); Chloride 103 mmol/L (98-107); Glucose 148 mg/dL (74-99); Non-African American GFR(CKD) 88 (>60 ml/min/1.73 sqM); Potassium 3.5 mmol/L (3.5-5.1); Sodium 139 mmol/L (137-145); Total Bilirubin 0.6 mg/dL (0.2-1.3); Total Protein 7.7 g/dL (6.3-8.2)
[2022-10-13 10:30] LABS: Prothrombin Time 10.5 sec (9.0-12.0)
[2022-10-13 10:40] LABS: Appearance,Urine Clear (Clear); Bilirubin,Urine Negative (Negative); Blood,Urine Negative (Negative); Color,Urine Yellow; Glucose,Urine (UA) Negative (Negative); Ketones,Urine 1+ (Negative); Leukocyte Esterase,Urine Negative (Negative); Nitrite,Urine Negative (Negative); PH, Urine 6.5 (5.0-8.0); Protein,Urine Trace (Negative); Specific Gravity,Urine 1.013 (1.001-1.035); Urobilinogen,Urine <2.0 mg/dL (<2.0)
[2022-10-13] MEDS ORDERED: HYDROmorphone 0.5 MG/0.5 ML SYRINGE IVP PRN (10:40)
--- NOTE | 2022-10-13 10:42 | CT ---
EXAMINATION TYPE: CT brain pierce fuchs con DATE OF EXAM: 10/13/2022 COMPARISON: 12/07/2021 HISTORY: 77 year-old female trauma, pain, AMS CT DLP: 1502 mGycm Automated exposure control for dose reduction was used. Technique: Examination of the head was done in axial plane without intravenous contrast. Coronal and sagittal reconstructions performed. CT of the cervical spine was obtained in axial plane without intravenous injection of contrast mater ial. Coronal and sagittal reformatted images were obtained from the axial views for evaluation of f ractures, spinal alignment and canal. FINDINGS: Head: Exam is limited by patient motion. The technologist reports that the exam is limited as the patient w as held and is combative. The frontal region in particular is distorted and assessment is limited jus t deep to the calvarium here. Elsewhere, no obvious evidence for acute intracranial hemorrhage, acute ischemic change, mass, mass e ffect, midline shift, or extra-axial fluid collection. No hydrocephalus. No effacement of cerebral mendez lci and basal subarachnoid cisterns. Mild patchy periventricular white matter hypodensity suggesting changes of chronic small vessel ischemic disease. Paranasal sinuses and mastoid air cells are well pneumatized. Orbits and globes are intact. Cervical spine: No craniocervical junction abnormality, predental space widening, or prevertebral soft tissue swellin g. Moderate spondylotic change mid to lower cervical spine. There is degenerative grade 1 anterolisthesi s C4-C5 and trace grade 1 retrolisthesis C5-C6. Remaining alignment is maintained. No acute fracture seen of the cervical spine. Changes result in very minimal mild narrowing of this spinal canal suggested that C5-C6. Changes also result in variable mild neural foraminal stenoses, more moderate to severe on the left a t C5-C6 and C7-T1; moderate on the left at C6-C7. Sagittal and coronal reformatted images confirm above findings. COMBINED IMPRESSION: 1. The anterior bifrontal region is nondiagnostic due to the degree of motion. The remainder of the h ead shows no intracranial abnormality. 2. Moderate spondylotic changes mid to lower cervical spine. Degenerative grade 1 spondylolisthesis C 4-C5 and C5-C6. No acute fracture of the cervical spine.
[2022-10-13 10:58] LABS: Partial Thromboplastin Time 17.5 sec (22.0-30.0)
[2022-10-13 11:04] LABS: Amphetamine Screen,Urine Not Detected (NotDetected); Barbiturate Screen,Urine Not Detected (NotDetected); Benzodiazepines Screen,Urine Not Detected (NotDetected); Cocaine Screen,Urine Not Detected (NotDetected); Methadone Screen, Urine Not Detected (NotDetected); Opiate Screen,Urine Not Detected (NotDetected); Oxycodone Screen, Urine Not Detected (NotDetected); Phencyclidine Screen,Urine Not Detected (NotDetected); Tricyclic Antidepressant,Urine Not Detected (NotDetected); Urn Cannabinoid Scrn Not Detected (NotDetected)
[2022-10-13] MEDS ORDERED: cefTRIAXone IN SWFI 1,000 MG/10 ML SYRINGE IVP STA (11:23)
--- NOTE | 2022-10-13 11:34 | XR ---
EXAMINATION TYPE: XR chest 1V portable DATE OF EXAM: 10/13/2022 COMPARISON: NONE HISTORY: Altered mental status TECHNIQUE: Single frontal view of the chest is obtained. FINDINGS: There is no focal air space opacity, pleural effusion, or pneumothorax seen. The cardiac silhouette size is within normal limits. The osseous structures are intact. Arthropathy of the shou lders. Limited inspiration. IMPRESSION: No acute process.
[2022-10-13] MEDS ORDERED: ZIPRASIDONE 20 MG VIAL IM STA (12:59)
[2022-10-13] MEDS: LACOSAMIDE 50 MG TABLET PO SCH ×2 (13:02→23:32)
[2022-10-13] MEDS: PROPRANOLOL 10 MG TAB PO SCH (14:01)
--- NOTE | 2022-10-13 14:51 | CT ---
EXAMINATION TYPE: CT abdomen pelvis w con DATE OF EXAM: 10/13/2022 COMPARISON: NONE HISTORY: 77-year-old female with abdominal pain, altered mental status, confusion TECHNIQUE: Contiguous axial scanning of the abdomen and pelvis following administration of 100 ml Iso carlos 300 IV contrast. Delayed images through the kidneys and coronal/sagittal reconstructions perform ed. CT DLP: 933.3 mGycm Automated exposure control for dose reduction was used. FINDINGS: Incidentally, 2 needle fragments are noted in the anterior medial left upper extremity near the level of the elbow. Needle fragments measure up to 1.8 cm. There is surrounding fat stranding an d edema and small foci of soft tissue air here as well. Heart borderline in size. There is a moderate to large hiatal hernia involving two thirds of the stom ach located in lower chest. Prominent dependent atelectasis in the lungs. No focal liver lesion or biliary ductal dilatation. Portal venous system is patent. Gallbladder, adrenal glands, kidneys, spleen, and pancreas within normal limits. No dilated small bowel, free fluid, or free air. No mesenteric or retroperitoneal lymphadenopathy. Mild stool burden. There is moderate circumferential distal rectal wall thickening with mucosal hyper emia and mild pericolonic fat stranding. Mild presacral edema is also noted. Goodwin catheter is in spencer ce. There is moderate circumferential bladder wall thickening. Otherwise, no abnormal fluid collection th e pelvis or pelvic lymphadenopathy. Bones: Moderate multilevel spondylotic change throughout the lumbar spine. Degenerative grade 1 retro listhesis L1-L2 and L2-L3. Mild to moderate degenerative change of both hips. IMPRESSION: 1. INCIDENTALLY, 2 RETAINED NEEDLE FRAGMENTS IN THE SUBCUTANEOUS FAT OF THE MEDIAL LEFT UPPER EXTREMI TY NEAR THE ELBOW. SURROUNDING CELLULITIS AND SMALL FOCI OF SOFT TISSUE AIR. 2. A MODERATE DISTAL COLITIS/PROCTITIS. NO ABSCESS OR FREE AIR. 3. MODERATE CIRCUMFERENTIAL BLADDER WALL THICKENING. CORRELATE WITH URINALYSIS TO EXCLUDE CYSTITIS. F OLEY CATHETER IN PLACE. 4. Incidental: Moderate to large hiatal hernia.
[2022-10-13] MEDS ORDERED: VANCOMYCIN IV PER PHARMACY 1 EACH MISC MISCELLANE PRN (14:57)
[2022-10-13] MEDS ORDERED: VANCOMYCIN 1,500 MG in SODIUM CHLORIDE 0.9% 500 ML 500 ML IVPB STA (15:03)
[2022-10-13] MEDS: SODIUM CHLORIDE 0.9% 1,000 ML IV SCH ×2 (15:06→23:33)
[2022-10-13] MEDS ORDERED: ONDANSETRON 4 MG/2 ML VIAL IVP PRN (15:12)
[2022-10-13] MEDS ORDERED: NALOXONE 0.4 MG/ML 1 ML VIAL IV PRN (15:12)
[2022-10-13] MEDS ORDERED: HALOPERIDOL LACTATE 5 MG/ML 1 ML VIAL IM PRN (15:42)
--- NOTE | 2022-10-13 15:54 | XR ---
EXAMINATION TYPE: XR humerus LT DATE OF EXAM: 10/13/2022 COMPARISON: NONE HISTORY: Pain TECHNIQUE: 2 views submitted. FINDINGS: The osseous structures are intact and the joint spaces are preserved. No evidence of metallic foreig n body. Soft tissue edema noted. The amount of subcutaneous emphysema. IMPRESSION: 1. No metallic foreign body identified.. Subcutaneous edema and a tiny amount of soft tissue emphyse ma correlate for infectious etiology.
[2022-10-13] MEDS: ACYCLOVIR SODIUM 1,000 MG in SODIUM CHLORIDE 0.9% 250 ML IVPB SCH (16:35)
[2022-10-13 16:37] LABS: Lactic Acid, Venous 1.8 mmol/L (0.7-2.0)
[2022-10-13] MEDS ORDERED: HALOPERIDOL LACTATE 5 MG/ML 1 ML VIAL IM STA (18:40)
[2022-10-13] MEDS ORDERED: QUEtiapine 25 MG TAB PO PRN (18:41)
[2022-10-14] MEDS ORDERED: HALOPERIDOL LACTATE 5 MG/ML 1 ML VIAL IM PRN (00:17)
[2022-10-14] MEDS: ACYCLOVIR SODIUM 1,000 MG in SODIUM CHLORIDE 0.9% 250 ML IVPB SCH ×3 (00:50→17:19)
[2022-10-14] MEDS: SODIUM CHLORIDE 0.9% 1,000 ML IV SCH ×2 (01:02→17:27)
--- NOTE | 2022-10-14 01:23 | P.HPIM ---
History of Present Illness H&P Date: 10/13/22 Chief Complaint: Altered mental status Patient is a 77-year-old female with a known history of seizure disorder currently on Vimpat, chronic back pain, GERD, hypertension, prior history of smoking and recent history of UTI about a week ago was brought to the hospital by EMS due to altered mental status and agitation. Patient cannot provide any history at this time. According to her at bedside patient was normal last night around 10 PM and went to bed. Patient was found in the morning on the side of the bed on the floor and was screaming out. Patient did have an episode of diarrhea. Patient's did take her to the bathroom and clean her up. She was confused and agitated, combative. EMS was called at the time. Otherwise did not have any witnessed seizure episodes. No focal deficit of facial droop noted. Patient was diagnosed with urinary tract infection about a week ago and was started on Keflex in the ER. According to her , all her symptoms started in the last diagnosed when she fell from the status. She had a bump on the forehead and was having shaking movements. She was seen at [facility]. Monitored for long-term se izure activity. Was started on Vimpat 100 mg twice daily which she has been taking at home. Patient complained that her seizure medications are making her anxious. Patient has been afebrile. No nausea or vomiting. Did not complain any headache or neck stiffness yesterday as per family.. CT head and cervical spine showed anterior bifrontal region is nondiagnostic due to degree of motion. The remainder head shows no acute intracranial abnormality. Moderate spondylitic changes, mild to lower cervical spine. Degenerative grade 1 spondylolisthesis C4-C5. Chest x-ray showed no acute process. CT abdomen pelvis showed incidentally 2 retained needle fragments in the subcutaneous of medial left upper extremity. Moderate distal colitis/proctitis. No abscess or free air. Moderate circumfe rential bladder wall thickening. Correlate with urinalysis to exclude cystitis. Goodwin catheter in place. Moderate to large hiatal hernia. Laboratory data showed WBC 24.0 hemoglobin 13.8 and platelets 352 Sodium 139 potassium 3.5 chloride 103 bicarb is 18 BUN 10 and creatinine 0.64 and blood sugar is 148 Liver enzymes are not elevated. Troponin x1 negative and albumin 4.7 Urinalysis negative for infection UDS is negative., Lactic acidosis with a level 4.3 Review of Systems ROS unobtainable: due to mental status Past Medical History Past Medical History: Diabetes Mellitus, GERD/Reflux, Hypertension Additional Past Medical History / Comment(s): Colitis, recurrent diarrhea, hyperglycemia, chronic back pain, recurrent uti's, AMS, possible seizure History of Any Multi-Drug Resistant Organisms: None Reported Past Surgical History: No Surgical Hx Reported Past Anesthesia/Blood Transfusion Reactions: Unable to Obtain Past Psychological History: No Psychological Hx Reported Smoking Status: Former smoker Past Alcohol Use History: None Reported Past Drug Use History: None Reported - Past Family History Mother Family Medical History: Diabetes Mellitus Medications and Allergies Home Medications Medication Instructions Recorded Confirmed Type Baclofen [Lioresal] 10 mg PO DAILY PRN 10/13/22 10/13/22 History Baclofen [Lioresal] 10 mg PO HS 10/13/22 10/13/22 History Lacosamide [Vimpat] 100 mg PO BID 10/13/22 10/13/22 History Propranolol [Inderal] 10 mg PO BID@0800,1400 10/13/22 10/13/22 History Allergies Allergy/AdvReac Type Severity Reaction Status Date / Time amoxicillin AdvReac Diarrhea Verified 10/13/22 10:20 Physical Exam Vitals: Vital Signs Temp Pulse Resp BP Pulse Ox 10/13/22 15:06 120 H 16 154/79 96 10/13/22 14:31 113 H 18 179/85 95 10/13/22 13:52 122 H 18 167/90 97 10/13/22 12:37 116 H 22 175/89 95 10/13/22 11:47 111 H 18 171/86 97 10/13/22 10:22 129 H 18 203/127 96 10/13/22 09:49 96.8 F L 120 H 18 176/96 98 Intake and Output 10/13/22 10/13/22 10/13/22 06:59 14:59 22:59 Other: Weight 77.111 kg PHYSICAL EXAMINATION: Patient is agitated and combative. Soft restraints x2.. HEENT: Normocephalic. Neck is supple. Pupils reactive. Nostrils clear. Oral cavity is moist. Neck reveals no JVD, carotid bruits, or thyromegaly. CHEST EXAMINATION: Trachea is central. Symmetrical expansion. Lung june clear to auscultation and percussion. CARDIAC: Normal S1, S2 with no gallops. No murmurs ABDOMEN: Soft. Bowel sounds present. Nontender. No organomegaly. No abdominal bruits. Extremities: reveal no edema. No clubbing or cyanosis Neurologically patient is agitated and combative. No gross focal deficits noted Skin: No rash or skin lesions. Psychiatric: Noncooperative, Musculoskeletal: No joint swelling or deformity. Results CBC & Chem 7: 10/13/22 10:07 10/13/22 10:07 Labs: Abnormal Lab Results - Last 24 Hours (Table) 10/13/22 10/13/22 10/13/22 Range/Units 09:52 10:07 10:07 WBC 24.0 H (3.8-10.6) k/uL Neutrophils # 21.8 H (1.3-7.7) k/uL APTT 17.5 L (22.0-30.0) sec Carbon Dioxide (22-30) mmol/L Glucose (74-99) mg/dL POC Glucose (mg/dL) 168 H (70-110) mg/dL Plasma Lactic Acid Andi (0.7-2.0) mmol/L Urine Protein (Negative) Urine Ketones (Negative) 10/13/22 10/13/22 10/13/22 Range/Units 10:07 10:07 11:31 WBC (3.8-10.6) k/uL Neutrophils # (1.3-7.7) k/uL APTT (22.0-30.0) sec Carbon Dioxide 18 L (22-30) mmol/L Glucose 148 H (74-99) mg/dL POC Glucose (mg/dL) (70-110) mg/dL Plasma Lactic Acid Andi 4.3 H* (0.7-2.0) mmol/L Urine Protein Trace H (Negative) Urine Ketones 1+ H (Negative) Thrombosis Risk Factor Assmnt - DVT/VTE Prophylaxis DVT/VTE Prophylaxis: Pharmacologic Prophylaxis ordered Assessment and Plan Assessment: Altered mental status with agitation combative. Patient was found on the side of the bed. Possible seizures with postictal status versus metabolic encephalopathy versus infection. Leukocytosis with WBC count 24. Rule out infection vs reactive. Moderate distal colitis/proctitis with episode of diarrhea. Moderate to large hiatal hernia Seizure disorder currently on Vimpat at home History of closed head injury status post fall in December 2021 Hypertension GERD Prior history of smoking DVT prophylaxis heparin subcu Plan: Patient will be continued on IV hydration with normal saline. Started on em piric antibiotics vancomycin and ceftriaxone and acyclovir. Follow-up blood cultures and repeat lactic acid level. Follow-up procalcitonin level, CBC and BMP tomorrow. Neurology and ID will be consulted. Haldol IM as needed for agitation. Discussed with her at bedside in detail. Time with Patient: Greater than 30
[2022-10-14] MEDS ORDERED: VANCOMYCIN 1,500 MG in SODIUM CHLORIDE 0.9% 500 ML 500 ML IVPB SCH (04:00)
[2022-10-14] MEDS: LACOSAMIDE 50 MG TABLET PO SCH ×2 (08:54→20:21)
[2022-10-14] MEDS: HEPARIN SODIUM,PORCINE/PF 5,000 UNIT/0.5 ML SYRINGE SQ SCH ×2 (08:55→17:26)
[2022-10-14] MEDS: ASCORBIC ACID 500 MG TAB PO SCH (08:55)
[2022-10-14 09:05] LABS: Basophils # (A) 0.2 k/uL (0-0.2); Basophils % (A) 1 %; Eosinophils % (A) 0 %; HCT 36.3 % (34.0-46.0); HGB 12.5 gm/dL (11.4-16.0); Lymphocytes # (A) 1.1 k/uL (1.0-4.8); Lymphocytes % (A) 8 %; MCH 30.1 pg (25.0-35.0); MCHC 34.4 g/dL (31.0-37.0); MCV 87.6 fL (80.0-100.0); Mean Platelet Volume 7.3; Monocytes # (A) 0.8 k/uL (0-1.0); Monocytes % (A) 6 %; Neutrophils # (A) 11.7 k/uL (1.3-7.7); Neutrophils % (A) 84 %; Platelet Count 295 k/uL (150-450); RBC 4.15 m/uL (3.80-5.40); RDW 12.8 % (11.5-15.5)
[2022-10-14 09:25] LABS: Phosphorus 3.5 mg/dL (2.5-4.5)
[2022-10-14] MEDS: PROPRANOLOL 10 MG TAB PO SCH ×3 (11:28→17:26)
--- NOTE | 2022-10-14 12:02 | P.CNNES ---
History of Present Illness Consult date: 10/13/22 Requesting physician: Chelsie Velazquez Reason for Consult: Altered mental stataus,agitation History of Present Illness: Patient is a 77-year-old female known to me from previous admission to the hospital, when she has presented with possible new onset seizure, now came to the hospital by ambulance today at 9:47 AM for acute onset of altered mental status. Patient's is a very good historian, who states that he woke up at 8 in the morning and saw patient was laying on the floor. Patient does have history of colitis and she had diarrhea all messed up in the bed and on the floor. Patient has been suffering from colitis for last 1 year with diarrhea. Patient was totally incoherent, half awake, and he could not talk to her. He managed to pull her to the bathroom and took her to the shower. In the shower, patient was trying to pull on the grab bar, and then started to pull on the shower door, completely confused. She kept on pushing him away. Patient's sons showed up, who called the ambulance and patient was brought to the hospital. Patient at present is completely confused, restless, encephalopathic, nonverbal, almost looks like post ictal. Earlier patient was yelling, screaming like in pa in, which has resolved after she received Geodon 10 mg IM once and Haldol 0.5 mg IV recently. At present patient is constantly pushing the covers. Patient does have chronic back pain from degenerative disc in the back and spine. Patient was seen by myself on 12/08/2021 for new onset probable unwitnessed seizure. Patient had significant altered mental status at that time. Patient had undergone an MRI of the brain, which did not reveal any acute process. EEG did not reveal any epileptiform activity. Patient even underwent CSF, which was negative for encephalitis. West Nile virus, viral cultures and even NMDA antibodies were negative. Patient was discharged on Keppra 500 mg twice a day. Patient followed up with Dr. Olsen. Patient was referred to [facility] for 3 days of admission an epilepsy monitoring unit. 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 Patient had significant side effects from Keppra with anger issues, which was discontinued and patient switched to Vimpat 50 mg twice a day. Her toes she was not able to tolerate because of significant anxiety issues with Vimpat as well. She has been doing fine with Vimpat 50 mA twice a day. Patient also has developed colitis. She has no control of bowel movement. One week ago, she had a bad diarrhea at night, with incontinence. She was fine for a week until last night when she had another bout of diarrhea as mentioned above. Patient's believes that she may have woken up earlier with diarrhea and was trying to clean herself when she fell on the floor. EMS flow sheet not available in the chart. Vital signs on arrival blood pressure 176/96, pulse rate 120, temperature 96.8. Blood test shows OBC 24.0, hemoglobin 13.8, platelets 352. PT/PTT normal, electrolytes are normal, renal functions, hepatic panel normal. Troponin negative, ammonia <9, UA negative, urine drug screen negative. Lactate 4.3. CT head revealed anterior bifrontal region is nondiagnostic due to the degree of motion. The remainder of the head shows no intracranial abnormality. CT of the cervical spine showed moderate spondylotic changes, mid to lower cervical spine. Degenerative grade 1 spondylolisthesis C4-C5 and C5-C6. No acute fracture of the cervical spine. EKG shows sinus tachycardia, chest x-ray showed no acute process. No history of tobacco or alcohol use Review of Systems Patient's does not know any more review of systems except as mentioned in HPI. ROS unobtainable: due to mental status Past Medical History Past Medical History: Diabetes Mellitus, GERD/Reflux, Hypertension Additional Past Medical History / Comment(s): Colitis, recurrent diarrhea, hyperglycemia, chronic back pain, recurrent uti's, AMS, possible seizure History of Any Multi-Drug Resistant Organisms: None Reported Past Surgical History: No Surgical Hx Reported Past Anesthesia/Blood Transfusion Reactions: Unable to Obtain Past Psychological History: No Psychological Hx Reported Smoking Status: Former smoker Past Alcohol Use History: None Reported Past Drug Use History: None Reported - Past Family History Mother Family Medical History: Diabetes Mellitus Medications and Allergies Home Medications Medication Instructions Recorded Confirmed Type Baclofen [Lioresal] 10 mg PO DAILY PRN 10/13/22 10/13/22 History Baclofen [Lioresal] 10 mg PO HS 10/13/22 10/13/22 History Lacosamide [Vimpat] 100 mg PO BID 10/13/22 10/13/22 History Propranolol [Inderal] 10 mg PO BID@0800,1400 10/13/22 10/13/22 History Allergies Allergy/AdvReac Type Severity Reaction Status Date / Time amoxicillin AdvReac Diarrhea Verified 10/13/22 10:20 Physical Examination - Vital Signs Vital Signs: Vital Signs Temp Pulse Resp BP Pulse Ox 10/13/22 16:11 111 H 16 184/84 96 10/13/22 15:06 120 H 16 154/79 96 10/13/22 14:31 113 H 18 179/85 95 10/13/22 13:52 122 H 18 167/90 97 10/13/22 12:37 116 H 22 175/89 95 10/13/22 11:47 111 H 18 171/86 97 10/13/22 10:22 129 H 18 203/127 96 10/13/22 09:49 96.8 F L 120 H 18 176/96 98 Intake and Output 10/13/22 10/13/22 10/13/22 06:59 14:59 22:59 Other: Weight 77.111 kg Patient is an elderly female, who is very encephalopathic, delirious, almost looks like postictal, restless. She is constantly pushing covers out. She has diapers on. Patient is completely encephalopathic. Patient is not speaking any words or sentences. Does not follow any directions or commands. Attention, concentration and fund of knowledge is completely impaired due to mental status. On cranial nerve examination, pupils are equal, round and reacting to light, visual june could not be tested. Her gaze is midline. No obvious facial droop. Patient would not open her mouth to check her tongue, although no obvious signs of tongue bite domonique. Extraocular muscles are intact, as she is moving her gaze is to either side. Lower cranial nerves cannot be tested. On muscle strength testing, patient is not cooperating for muscle strength testing. Patient is moving all 4 extremities equally, with no focal weakness observed. Deep tendon reflexes are hypoactive and plantars are upgoing bilaterally. Sensory to touch cannot be assessed, but patient is withdrawing to painful stimuli bilaterally. Cerebellar functions and gait cannot be assessed. Tone is equal. Gait deferred.. On general examination, there is no carotid bruit or murmur, S1-S2 audible. Chest is clear on consultation. Abdomen is soft nontender. No organomegaly, bowel sounds present. Peripheral pulses are present. No edema. Results - Laboratory Findings CBC and BMP: 10/15/22 07:50 10/15/22 07:50 Abnormal Lab Findings: Abnormal Labs 10/13/22 10/13/22 10/13/22 09:52 10:07 10:07 WBC 24.0 H Neutrophils # 21.8 H APTT 17.5 L Carbon Dioxide Glucose POC Glucose (mg/dL) 168 H Plasma Lactic Acid Andi Urine Protein Urine Ketones 10/13/22 10/13/22 10/13/22 10:07 10:07 11:31 WBC Neutrophils # APTT Carbon Dioxide 18 L Glucose 148 H POC Glucose (mg/dL) Plasma Lactic Acid Andi 4.3 H* Urine Protein Trace H Urine Ketones 1+ H Assessment and Plan Assessment: * Acute encephalopathy of unclear etiology. Rule out unwitnessed seizure with postictal state. * Patient has similar presentation with possible unwitnessed seizure in November 2021, underwent extensive workup, and was treated with Keppra. Patient had significant side effects from Keppra, switched to Vimpat in May 2022, currently on low-dose Vimpat 50 mg twice a day. Higher doses produces anxiety attacks. * Diabetes * Hypertension * Colitis with diarrhea * Chronic back pain Plan: * Increase Vimpat to 100 mg twice a day. * Consider slowly switching to Lamictal, which is a good antiepileptic medication with mood stabilization effect. * EEG * Patient had similar presentation in November 2021, underwent lumbar puncture, which was negative for encephalitis. * Telemetric monitoring * Fall risk * Neurology will closely follow. * Discussed with patient's in detail. Time with Patient: Greater than 30
--- NOTE | 2022-10-14 15:00 | P.PN ---
Subjective Progress Note Date: 10/14/22 Patient is a 77-year-old female with a known history of seizure disorder currently on Vimpat, chronic back pain, GERD, hypertension, prior history of smoking and recent history of UTI about a week ago was brought to the hospital by EMS due to altered mental status and agitation. Patient cannot provide any history at this time. According to her at bedside patient was normal last night around 10 PM and went to bed. Patient was found in the morning on the side of the bed on the floor and was screaming out. Patient did have an episode of diarrhea. Patient's did take her to the bathroom and clean her up. She was confused and agitated, combative. EMS was called at the time. Otherwise did not have any witnessed seizure episodes. No focal deficit of facial droop noted. Patient was diagnosed with urinary tract infection about a week ago and was started on Keflex in the ER. According to her , all her symptoms started in the last diagnosed when she fell from the status. She had a bump on the forehead and was having shaking movements. She was seen at [facility]. Monitored for long-term seizure activity. Was started on Vimpat 100 mg twice daily which she has been taking at home. Patient complained that her seizure medications are making her anxious. Patient has been afebrile. No nausea or vomiting. Did not complain any headache or neck stiffness yesterday as per family.. CT head and cervical spine showed anterior bifrontal region is nondiagnostic due to degree of motion. The remainder head shows no acute intracranial abnormality. Moderate spondylitic changes, mild to lower cervical spine. Degenerative grade 1 spondylolisthesis C4-C5. Chest x-ray showed no acute process. CT abdomen pelvis showed incidentally 2 retained needle fragments in the subcutaneous of medial left upper extremity. Moderate distal colitis/proctitis. No abscess or free air. Moderate circumferential bladder wall thickening. Correlate with urinalysis to exclude cystitis. Goodwin catheter in place. Moderate to large hiatal hernia. Laboratory data showed WBC 24.0 hemoglobin 13.8 and platelets 352 Sodium 139 potassium 3.5 chloride 103 bicarb is 18 BUN 10 and creatinine 0.64 and blood sugar is 148 Liver enzymes are not elevated. Troponin x1 negative and albumin 4.7 Urinalysis negative for infection UDS is negative., Lactic acidosis with a level 4.3 10/14. Patient seen and examined. White count this morning is 14, hemoglobin is 12.5, phosphorus 3, magnesium 2. Patient is alert, able to tell me her name and place but then starts repeating her answers. Unable to obtain a detailed review of system at this time PHYSICAL EXAMINATION: GENERAL: The patient is alert , not in any acute distress. Well developed, well nourished. HEENT: Pupils are round and equally reacting to light. EOMI. No scleral icterus. No conjunctival pallor. Normocephalic, atraumatic. No pharyngeal erythema. No thyromegaly. CARDIOVASCULAR: S1 and S2 present. No murmurs, rubs, or gallops. PULMONARY: Chest is clear to auscultation, no wheezing or crackles. ABDOMEN: Soft, nontender, nondistended, normoactive bowel sounds. No palpable organomegaly. MUSCULOSKELETAL: No joint swelling or deformity. EXTREMITIES: No cyanosis, clubbing, or pedal edema. NEUROLOGICAL: Gross neurological examination did not reveal any focal deficits. SKIN: No rashes. Assessment and plan Altered mental status with agitation combative. Patient was found on the side of the bed. Possible seizures with postictal status versus metabolic encephalopathy versus infection. Leukocytosis with WBC count 24. Rule out infection vs reactive. Moderate distal colitis/proctitis with episode of diarrhea. 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 Continue vancomycin and ceftriaxone and acyclovir. EEG ordered Increased vimpat to 200Twice a day Follow-up blood cultures and repeat lactic acid level. Follow-up procalcitonin level, CBC and BMP tomorrow. Follow-up on neurology recommendations Follow-up in ID recommendations Objective - Vital Signs Vital signs: Vital Signs Temp 98.9 F 10/14/22 11:33 Pulse 59 L 10/14/22 11:33 Resp 16 10/14/22 11:33 BP 161/76 10/14/22 11:33 Pulse Ox 95 10/14/22 11:33 FiO2 Intake & Output 10/13/22 10/14/22 10/14/22 18:59 06:59 18:59 Output Total 1550 300 Balance -1550 -300 Weight 77.111 kg Output: Urine 1550 300 Uretheral (Goodwin) 300 Other: Voiding Method Indwelling Catheter Indwelling Catheter - Labs CBC & Chem 7: 10/14/22 08:20 10/13/22 10:07 Labs: Abnormal Lab Results - Last 24 Hours (Table) 10/13/22 10/13/22 10/14/22 Range/Units 11:31 16:01 08:20 WBC 14.0 H (3.8-10.6) k/uL Neutrophils # 11.7 H (1.3-7.7) k/uL Plasma Lactic Acid Andi 4.3 H* (0.7-2.0) mmol/L Procalcitonin 0.13 H (0.02-0.09) ng/mL
[2022-10-14] MEDS: lamoTRIgine 25 MG TAB PO SCH ×2 (17:26→21:23)
[2022-10-14] MEDS: VANCOMYCIN 1,500 MG in SODIUM CHLORIDE 0.9% 500 ML 500 ML IVPB SCH (17:26)
--- NOTE | 2022-10-14 21:48 | P.CONS ---
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, has been brought into the ER for mental status changes apparently patient apparently was seen on the bedroom floor by the making no sense to him no clear history of any head injury however the patient was screaming and moaning and did have a episode of loose stool patient apparently was evaluated in the same ER about a week ago was diagnosed with a UTI and has been treated with oral antibiotics patient on presentation to the hospital was afebrile but does have a low-grade fever of 99.1 afterwards patient was not tachycardic or hypotensive did have about a 24,000 with a left shift kidney function was normal her lactic acid was elevated it was in the normal urine has been negative urine drug screen was negative patient did have a CT of abdominal pelvis concerning for distal colitis proctitis no abscess or free air and there was concern for possible retained needle fragment in the subcutaneous fat of the medial left upper arm and concern for possible surrounding cellulitis patient did have a x-ray of the humerus which did not show any evidence of foreign body patient was started on ceftriaxone and vancomycin infectious disease was consulted for further management of antibiotic therapy patient on my evaluation seem to be back to her baseline per the at the bedside patient denies having any headache she is aware that she is in the hospital no chest pain shortness of breath or cough no abdominal pain did have some diarrhea per the nursing staff Review of Systems Positive points has been mentioned in HPI complete review could not be obtained because of his underlying mental status Past Medical History Past Medical History: Diabetes Mellitus, GERD/Reflux, Hypertension Additional Past Medical History / Comment(s): Colitis, recurrent diarrhea, hyperglycemia, chronic back pain, recurrent uti's, AMS, possible seizure History of Any Multi-Drug Resistant Organisms: None Reported Past Surgical History: No Surgical Hx Reported Past Anesthesia/Blood Transfusion Reactions: Unable to Obtain Past Psychological History: No Psychological Hx Reported Smoking Status: Former smoker Past Alcohol Use History: None Reported Past Drug Use History: None Reported - Past Family History Mother Family Medical History: Diabetes Mellitus Medications and Allergies Home Medications Medication Instructions Recorded Confirmed Type Baclofen [Lioresal] 10 mg PO DAILY PRN 10/13/22 10/13/22 History Baclofen [Lioresal] 10 mg PO HS 10/13/22 10/13/22 History Lacosamide [Vimpat] 100 mg PO BID 10/13/22 10/13/22 History Propranolol [Inderal] 10 mg PO BID@0800,1400 10/13/22 10/13/22 History cefUROXime axetiL [Ceftin] 500 mg PO BID 1 Days #14 tab 10/17/22 Rx lamoTRIgine [LaMICtal] 25 mg PO BID #60 tab 10/17/22 Rx metroNIDAZOLE [Flagyl] 500 mg PO QID #21 tab 10/17/22 Rx Allergies Allergy/AdvReac Type Severity Reaction Status Date / Time amoxicillin AdvReac Diarrhea Verified 10/13/22 10:20 Physical Exam Vitals: Vital Signs Temp Pulse Pulse Resp BP BP Pulse Ox 10/14/22 08:30 98 10/14/22 08:00 98.5 F 96 16 163/76 98 10/14/22 04:43 99.1 F 103 H 16 170/74 98 10/14/22 04:00 95 16 162/95 97 10/14/22 03:00 108 H 12 146/84 96 10/14/22 02:00 117 H 16 162/83 94 L 10/14/22 01:00 100 18 174/100 95 10/14/22 00:00 111 H 12 171/109 96 10/13/22 23:00 105 H 20 171/100 93 L 10/13/22 22:00 116 H 18 170/112 95 10/13/22 21:09 112 H 18 96 10/13/22 21:00 108 H 12 146/84 96 10/13/22 18:24 130 H 20 184/95 96 10/13/22 17:06 113 H 18 173/105 95 10/13/22 16:11 111 H 16 184/84 96 10/13/22 15:06 120 H 16 154/79 96 10/13/22 14:31 113 H 18 179/85 95 10/13/22 13:52 122 H 18 167/90 97 10/13/22 12:37 116 H 22 175/89 95 10/13/22 11:47 111 H 18 171/86 97 Intake and Output 10/13/22 10/14/22 10/14/22 22:59 06:59 14:59 Output Total 1550 300 Balance -1550 -300 Output: Urine 1550 300 Uretheral (Goodwin) 300 Other: Voiding Method Indwelling Catheter Indwelling Catheter GENERAL DESCRIPTION: Elderly female lying in bed, no distress. No tachypnea or accessory muscle of respiration use. HEENT: Shows Pallor , no scleral icterus. Oral mucous membrane is dry. No pharyngeal erythema or thrush NECK: Trachea central, no thyromegaly. LUNGS: Unlabored breathing. Clear to auscultation anteriorly. No wheeze or crackle. HEART: S1, S2, regular rate and rhythm. No loud murmur ABDOMEN: Soft, no tenderness , guarding or rigidity, no organomegaly EXTREMITIES: Left upper arm did have a bruising some swelling no wound or any drainage SKIN: No rash, no masses palpable. NEUROLOGICAL: The patient is lethargic orientation could not be determined. Results CBC & Chem 7: 10/17/22 07:04 10/17/22 07:04 Labs: Abnormal Lab Results - Last 24 Hours (Table) 10/13/22 10/13/22 10/14/22 Range/Units 11:31 16:01 08:20 WBC 14.0 H (3.8-10.6) k/uL Neutrophils # 11.7 H (1.3-7.7) k/uL Plasma Lactic Acid Andi 4.3 H* (0.7-2.0) mmol/L Procalcitonin 0.13 H (0.02-0.09) ng/mL Assessment and Plan (1) Cellulitis Status: Acute Code(s): L03.90 - CELLULITIS, UNSPECIFIED SNOMED Code(s): 855240471 (2) Leukocytosis Status: Acute Code(s): D72.829 - ELEVATED WHITE BLOOD CELL COUNT, UNSPECIFIED SNOMED Code(s): 493700909 Plan: 1patient with a leukocytosis in this patient has been brought to the hospital after patient was found to be on the floor with mental status changes did have diarrhea and recently treated for UTI with antibiotic CT abdominal pelvis did shows evidence of colitis with a question of possible C. difficile colitis patient did have a negative UA did have some bruising to the left medial arm area but no evidence of any induration or fluctuation clinically doubt abscess at that site and retained foreign body was ruled out by plain x-ray 2-we will check a stool for C. difficile and stool culture 3-continue the vancomycin and Rocephin as the patient white count is trending down we did while waiting for the culture to finalize We will follow on clinical condition and cultures to further adjust medication if needed Thank you for this consultation we will follow the patient along with you Time with Patient: Greater than 30
[2022-10-15] MEDS: ACYCLOVIR SODIUM 1,000 MG in SODIUM CHLORIDE 0.9% 250 ML IVPB SCH ×2 (00:12→09:52)
[2022-10-15] MEDS: HEPARIN SODIUM,PORCINE/PF 5,000 UNIT/0.5 ML SYRINGE SQ SCH ×4 (00:13→23:27)
[2022-10-15] MEDS: VANCOMYCIN 1,500 MG in SODIUM CHLORIDE 0.9% 500 ML 500 ML IVPB SCH ×2 (05:58→17:12)
[2022-10-15] MEDS: SODIUM CHLORIDE 0.9% 1,000 ML IV SCH ×2 (06:25→15:38)
[2022-10-15 08:01] LABS: Basophils # (A) 0.1 k/uL (0-0.2); Basophils % (A) 1 %; Eosinophils # (A) 0.1 k/uL (0-0.7); Eosinophils % (A) 1 %; HCT 37.8 % (34.0-46.0); Lymphocytes % (A) 15 %; MCHC 34.4 g/dL (31.0-37.0); MCV 87.4 fL (80.0-100.0); Mean Platelet Volume 7.2; Monocytes # (A) 0.8 k/uL (0-1.0); Monocytes % (A) 6 %; Neutrophils # (A) 10.1 k/uL (1.3-7.7); Neutrophils % (A) 76 %; Platelet Count 329 k/uL (150-450); RBC 4.33 m/uL (3.80-5.40); RDW 12.7 % (11.5-15.5); WBC 13.4 k/uL (3.8-10.6)
[2022-10-15 08:18] LABS: ALT 31 U/L (4-34); AST 52 U/L (14-36); African American GFR (CKD) >90 (>60 ml/min/1.73 sqM); Albumin 3.6 g/dL (3.5-5.0); Alkaline Phosphatase 92 U/L (38-126); Anion Gap 9 mmol/L; Blood Urea Nitrogen 7 mg/dL (7-17); Calcium 8.5 mg/dL (8.4-10.2); Carbon Dioxide 23 mmol/L (22-30); Chloride 107 mmol/L (98-107); Glucose 89 mg/dL (74-99); Non-African American GFR(CKD) >90 (>60 ml/min/1.73 sqM); Potassium 3.3 mmol/L (3.5-5.1); Sodium 139 mmol/L (137-145); Total Bilirubin 0.7 mg/dL (0.2-1.3); Total Protein 6.3 g/dL (6.3-8.2)
[2022-10-15] MEDS: PROPRANOLOL 10 MG TAB PO SCH ×2 (08:37→13:33)
[2022-10-15] MEDS: lamoTRIgine 25 MG TAB PO SCH ×2 (08:37→21:14)
[2022-10-15] MEDS: LACOSAMIDE 50 MG TABLET PO SCH ×2 (08:37→21:14)
[2022-10-15] MEDS: ASCORBIC ACID 500 MG TAB PO SCH (08:37)
--- NOTE | 2022-10-15 09:59 | P.PN ---
Subjective Progress Note Date: 10/14/22 Patient was seen for a follow-up. Patient is doing much better. She is much more alert and awake, not restless, or as encephalopathic. Still confused. Patient denies headache. No dizziness. Patient has some perseveration. Please refer to examination below. Objective - Vital Signs Vital signs: Vital Signs Temp 98.9 F 10/14/22 11:33 Pulse 59 L 10/14/22 11:33 Resp 16 10/14/22 11:33 BP 161/76 10/14/22 11:33 Pulse Ox 95 10/14/22 11:33 FiO2 Intake & Output 10/13/22 10/14/22 10/14/22 18:59 06:59 18:59 Output Total 1550 300 Balance -1550 -300 Weight 77.111 kg 77.111 kg Output: Urine 1550 300 Uretheral (Goodwin) 300 Other: Voiding Method Indwelling Catheter Indwelling Catheter - Exam Patient is alert and awake. Her speech is clear with no aphasia or dysarthria. She knows it is September and the year is 2022 and that she is in [place], but the state she repeats on 2022. Patient does have evidence of tongue bite domonique on the left. Her pupils are equal, round and reacting, face is symmetric. Muscle strength appears normal. - Labs CBC & Chem 7: 10/15/22 07:50 10/15/22 07:50 Labs: Abnormal Lab Results - Last 24 Hours (Table) 10/13/22 10/14/22 Range/Units 16:01 08:20 WBC 14.0 H (3.8-10.6) k/uL Neutrophils # 11.7 H (1.3-7.7) k/uL Procalcitonin 0.13 H (0.02-0.09) ng/mL Assessment and Plan Assessment: * Acute encephalopathy of unclear etiology. Probable another unwitnessed seizur e with postictal state. Patient has evidence of tongue bite domonique on the left. * Patient has similar presentation with possible unwitnessed seizure in November 2021, underwent extensive workup, and was treated with Keppra. Patient had significant side effects from Keppra, switched to Vimpat in May 2022, currently on low-dose Vimpat 50 mg twice a day. Higher doses produces anxiety attacks. * Diabetes * Hypertension * Colitis with diarrhea * Chronic back pain Plan: * Continue Vimpat to 100 mg twice a day. * Start Lamictal 25 mg twice a day. After 1 week, increase to 50 mg twice a day, and after another 1 week, 100 mg twice a day. Lamictal is good antiepileptic medication with mood stabilization effect also. * Recommend slowly weaning off Vimpat because of a shunt experiencing side effect in the past. * EEG * Patient had similar presentation in November 2021, underwent lumbar puncture, which was negative for encephalitis. Doubt encephalitis at this time. * Telemetric monitoring * Fall risk * Neurology will continue to follow. * Discussed with patient's and nursing staff in detail.
--- NOTE | 2022-10-15 13:27 | P.PN ---
Subjective Progress Note Date: 10/15/22 Patient is a 77-year-old female with a known history of seizure disorder currently on Vimpat, chronic back pain, GERD, hypertension, prior history of smoking and recent history of UTI about a week ago was brought to the hospital by EMS due to altered mental status and agitation. Patient cannot provide any history at this time. According to her at bedside patient was normal last night around 10 PM and went to bed. Patient was found in the morning on the side of the bed on the floor and was screaming out. Patient did have an episode of diarrhea. Patient's did take her to the bathroom and clean her up. She was confused and agitated, combative. EMS was called at the time. Otherwise did not have any witnessed seizure episodes. No focal deficit of facial droop noted. Patient was diagnosed with urinary tract infection about a week ago and was started on Keflex in the ER. According to her , all her symptoms started in the last diagnosed when she fell from the status. She had a bump on the forehead and was having shaking movements. She was seen at [facility]. Monitored for long-term seizure activity. Was started on Vimpat 100 mg twice daily which she has been taking at home. Patient complained that her seizure medications are making her anxious. Patient has been afebrile. No nausea or vomiting. Did not complain any headache or neck stiffness yesterday as per family.. CT head and cervical spine showed anterior bifrontal region is nondiagnostic due to degree of motion. The remainder head shows no acute intracranial abnormality. Moderate spondylitic changes, mild to lower cervical spine. Degenerative grade 1 spondylolisthesis C4-C5. Chest x-ray showed no acute process. CT abdomen pelvis showed incidentally 2 retained needle fragments in the subcutaneous of medial left upper extremity. Moderate distal colitis/proctitis. No abscess or free air. Moderate circumferential bladder wall thickening. Correlate with urinalysis to exclude cystitis. Goodwin catheter in place. Moderate to large hiatal hernia. Laboratory data showed WBC 24.0 hemoglobin 13.8 and platelets 352 Sodium 139 potassium 3.5 chloride 103 bicarb is 18 BUN 10 and creatinine 0.64 and blood sugar is 148 Liver enzymes are not elevated. Troponin x1 negative and albumin 4.7 Urinalysis negative for infection UDS is negative., Lactic acidosis with a level 4.3 10/14. Patient seen and examined. White count this morning is 14, hemoglobin is 12.5, phosphorus 3, magnesium 2. Patient is alert, able to tell me her name and place but then starts repeating her answers. Unable to obtain a detailed review of system at this time 10/15. Patient seen and examined. Patient laying comfortably in the bed. at bedside. Patient is much more alert a communicative compared to yesterday. Answering question appropriately PHYSICAL EXAMINATION: GENERAL: The patient is alert , not in any acute distress. Well developed, well nourished. HEENT: Pupils are round and equally reacting to light. EOMI. No scleral icterus. No conjunctival pallor. Normocephalic, atraumatic. No pharyngeal erythema. No thyromegaly. CARDIOVASCULAR: S1 and S2 present. No murmurs, rubs, or gallops. PULMONARY: Chest is clear to auscultation, no wheezing or crackles. ABDOMEN: Soft, nontender, nondistended, normoactive bowel sounds. No palpable organomegaly. MUSCULOSKELETAL: No joint swelling or deformity. EXTREMITIES: No cyanosis, clubbing, or pedal edema. NEUROLOGICAL: Gross neurological examination did not reveal any focal deficits. SKIN: No rashes. Assessment and plan Altered mental status with agitation combative. Patient was found on the side of the bed. Possible seizures with postictal status versus metabolic encephalopathy versus infection. Leukocytosis with WBC count 24. Rule out infection vs reactive. Moderate distal colitis/proctitis with episode of diarrhea. 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 Continue vancomycin and ceftriaxone . EEG ordered Continue Vimpat 200Twice a day Fernández for C. diff ordered Follow-up blood cultures and repeat lactic acid level. Follow-up procalcitonin level, CBC and BMP tomorrow. Follow-up on neurology recommendations Follow-up in ID recommendations Objective - Vital Signs Vital signs: Vital Signs Temp 98.3 F 10/15/22 11:25 Pulse 79 10/15/22 11:25 Resp 18 10/15/22 11:25 BP 164/89 10/15/22 11:25 Pulse Ox 96 10/15/22 11:25 FiO2 Intake & Output 10/14/22 10/15/22 10/15/22 18:59 06:59 18:59 Output Total 1300 425 Balance -1300 -425 Weight 77.111 kg Output: Urine 1300 425 Uretheral (Goodwin) 1300 Other: Voiding Method Indwelling Catheter Indwelling Catheter Indwelling Catheter - Labs CBC & Chem 7: 10/15/22 07:50 10/15/22 07:50 Labs: Abnormal Lab Results - Last 24 Hours (Table) 10/15/22 10/15/22 Range/Units 07:50 07:50 WBC 13.4 H (3.8-10.6) k/uL Neutrophils # 10.1 H (1.3-7.7) k/uL Potassium 3.3 L (3.5-5.1) mmol/L AST 52 H (14-36) U/L
--- NOTE | 2022-10-15 15:36 | P.PN ---
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 On today's evaluation that is 10/15/2022, the patient denies having any fever or any chills the patient is more awake and alert today, patient denies having any chest pain shortness of breath or cough left upper arm swelling and redness has improved denies having abdominal pain and no further diarrhea has been reported Objective - Vital Signs Vital signs: Vital Signs Temp 98.3 F 10/15/22 11:25 Pulse 79 10/15/22 11:25 Resp 18 10/15/22 11:25 BP 164/89 10/15/22 11:25 Pulse Ox 96 10/15/22 11:25 FiO2 Intake & Output 10/14/22 10/15/22 10/15/22 18:59 06:59 18:59 Output Total 1300 425 Balance -1300 -425 Weight 77.111 kg Output: Urine 1300 425 Uretheral (Goodwin) 1300 Other: Voiding Method Indwelling Catheter Indwelling Catheter Indwelling Catheter - Exam GENERAL DESCRIPTION: An elderly male lying in bed in no distress RESPIRATORY SYSTEM: Unlabored breathing , decreased breath sounds at bases HEART: S1 S2 regular rate and rhythm , ABDOMEN: Soft , no tenderness EXTREMITIES: Left medial upper arm area of bruising and redness has decreased - Labs CBC & Chem 7: 10/15/22 07:50 10/15/22 07:50 Labs: Abnormal Lab Results - Last 24 Hours (Table) 10/15/22 10/15/22 Range/Units 07:50 07:50 WBC 13.4 H (3.8-10.6) k/uL Neutrophils # 10.1 H (1.3-7.7) k/uL Potassium 3.3 L (3.5-5.1) mmol/L AST 52 H (14-36) U/L Assessment and Plan (1) Cellulitis Current Visit: Yes Status: Acute Code(s): L03.90 - CELLULITIS, UNSPECIFIED SNOMED Code(s): 195340555 (2) Colitis Current Visit: Yes Status: Acute Code(s): K52.9 - NONINFECTIVE GASTROENTERITIS AND COLITIS, UNSPECIFIED SNOMED Code(s): 86369486 Plan: 1patient with a leukocytosis in this patient has been brought to the hospital after patient was found to be on the floor with mental status changes did have diarrhea and recently treated for UTI with antibiotic CT abdominal pelvis did shows evidence of colitis with a question of possible C. difficile colitis patient did have a negative UA did have some bruising to the left medial arm area but no evidence of any induration or fluctuation clinically doubt abscess at that site and retained foreign body was ruled out by plain x-ray 2-we'll currently waiting for stool for C. difficile and stool culture 3-patient seemed to have shown clinical improvement and well continue the vancomycin and Rocephin while waiting for the cultures to finalize
[2022-10-15 19:50] VITALS: RESP 16
--- NOTE | 2022-10-16 01:49 | P.PN ---
Subjective Progress Note Date: 10/15/22 Patient was seen for a follow-up. Patient is doing much better as compared to yesterday. Patient's was also present. She is walking better. Patient denies any headache. Her blood pressure has been staying up. Patient is much more alert and awake, not restless, very pleasant. No dizziness. Patient has less perseveration. Objective - Vital Signs Vital signs: Vital Signs Temp 98.3 F 10/15/22 11:25 Pulse 79 10/15/22 11:25 Resp 18 10/15/22 11:25 BP 164/89 10/15/22 11:25 Pulse Ox 96 10/15/22 11:25 FiO2 Intake & Output 10/14/22 10/15/22 10/15/22 18:59 06:59 18:59 Intake Total 118 Output Total 1300 1925 Balance -1300 -1807 Weight 77.111 kg Intake: Oral 118 Output: Urine 1300 1925 Uretheral (Goodwin) 1300 Other: Voiding Method Indwelling Catheter Indwelling Catheter Indwelling Catheter - Exam Patient is alert and awake. Her speech is clear with no aphasia or dysarthria. She knows it is September and the year is 2022. She knows that she lives in [place] in [place], although she believes that it is [facility]. Patient does have evidence of tongue bite domonique on the left, improving. Her pupils are equal, round and reacting, face is symmetric. Muscle strength appears normal. - Labs CBC & Chem 7: 10/15/22 07:50 10/15/22 07:50 Labs: Abnormal Lab Results - Last 24 Hours (Table) 10/15/22 10/15/22 Range/Units 07:50 07:50 WBC 13.4 H (3.8-10.6) k/uL Neutrophils # 10.1 H (1.3-7.7) k/uL Potassium 3.3 L (3.5-5.1) mmol/L AST 52 H (14-36) U/L Microbiology - Last 24 Hours (Table) 10/13/22 12:10 Blood Culture - Preliminary Blood 10/13/22 12:10 Blood Culture - Preliminary Blood Assessment and Plan Assessment: * Acute encephalopathy of unclear etiology. Probable another unwitnessed seizure with postictal state. Patient has evidence of tongue bite domonique on the left. * Patient has similar presentation with possible unwitnessed seizure in November 2021, underwent extensive workup, and was treated with Keppra. Patient had significant side effects from Keppra, switched to Vimpat in May 2022, curr ently on low-dose Vimpat 50 mg twice a day. Higher doses produces anxiety attacks. * Diabetes * Hypertension * Colitis with diarrhea * Chronic back pain Plan: * Continue Vimpat to 100 mg twice a day. * Start Lamictal 25 mg twice a day. After 1 week, increase to 50 mg twice a day, and after another 1 week, 100 mg twice a day. Lamictal is good antiepileptic medication with mood stabilization effect also. Informed patient's to stop the Lamictal if she gets any rash. * Recommend slowly weaning off Vimpat because patient has previously experienced side effects from higher dose of Vimpat. Recommend decrease Vimpat to 50 mg twice a day after one week, and then discontinue Vimpat after another 1 week (when patient goes up to the maintenance Lamictal 100 mg twice a day dose). * EEG * Patient had similar presentation in November 2021, underwent lumbar puncture, which was negative for encephalitis. Doubt encephalitis at this time. Will discontinue acyclovir. ID also following. * Telemetric monitoring * Fall risk * Dr. Venkatesh De La Cruz will resume neurology service the morning.
[2022-10-16] MEDS ORDERED: VANCOMYCIN TROUGH DUE 1 EACH MISC MISCELLANE ONE (05:00)
[2022-10-16 06:37] LABS: African American GFR (CKD) >90 (>60 ml/min/1.73 sqM); Non-African American GFR(CKD) 90 (>60 ml/min/1.73 sqM)
[2022-10-16] MEDS: VANCOMYCIN 1,500 MG in SODIUM CHLORIDE 0.9% 500 ML 500 ML IVPB SCH (06:40)
[2022-10-16] MEDS: SODIUM CHLORIDE 0.9% 1,000 ML IV SCH (06:43)
[2022-10-16] MEDS: PROPRANOLOL 10 MG TAB PO SCH ×2 (08:53→15:17)
[2022-10-16] MEDS: LACOSAMIDE 50 MG TABLET PO SCH ×2 (08:53→20:31)
[2022-10-16] MEDS: lamoTRIgine 25 MG TAB PO SCH ×2 (08:54→20:32)
[2022-10-16] MEDS: HEPARIN SODIUM,PORCINE/PF 5,000 UNIT/0.5 ML SYRINGE SQ SCH ×3 (08:55→23:14)
[2022-10-16] MEDS: ASCORBIC ACID 500 MG TAB PO SCH (08:55)
--- NOTE | 2022-10-16 13:17 | P.PN ---
Subjective Progress Note Date: 10/16/22 I am seeing the patient for the first time during this hospital visit. She is accompanied with her was also at bedside. Please refer to Dr. Pandya's notes for further details. Appears to patient had acute encephalopathy and probable another unwitnessed seizure with post ictal state that. According to the patient's she's doing drastically better compared to initial presentation. She was placed on Lamictal for seizure. Patient feels she is doing better. Objective - Vital Signs Vital signs: Vital Signs Temp 97.8 F 10/16/22 11:59 Pulse 75 10/16/22 11:59 Resp 16 10/16/22 11:59 BP 170/95 10/16/22 11:59 Pulse Ox 96 10/16/22 11:59 FiO2 Intake & Output 10/15/22 10/16/22 10/16/22 18:59 06:59 18:59 Intake Total 354 240 Output Total 2225 800 Balance -1871 -800 240 Intake: Oral 354 240 Output: Urine 2225 800 Uretheral (Goodwin) 800 Other: Voiding Method Indwelling Catheter Indwelling Catheter Indwelling Catheter - Exam Neuro: Is awake, alert, oriented to self, place and time. Is following simple comm ands. No aphasia or neglect. Pupils are round, equal and reactive to light. Visual june are full to confrontation. No facial weakness. No dysarthria. Motor: Strength is moving all extremities above gravity without focality. Cerebellar: Normal finger to nose bilaterally. - Labs CBC & Chem 7: 10/15/22 07:50 10/16/22 05:50 Labs: Microbiology - Last 24 Hours (Table) 10/13/22 12:10 Blood Culture - Preliminary Blood 10/13/22 12:10 Blood Culture - Preliminary Blood Assessment and Plan Assessment: * Acute encephalopathy of unclear etiology. Probable another unwitnessed seizure with postictal state. Patient has evidence of tongue bite domonique on the left--mentation improving. * Patient has similar presentation with possible unwitnessed seizure in November 2021, underwent extensive workup, and was treated with Keppra. Patient had significant side effects from Keppra, switched to Vimpat in May 2022, currently on low-dose Vimpat 50 mg twice a day. Higher doses produces anxiety attacks. * Diabetes * Hypertension * Colitis with diarrhea * Chronic back pain Plan: * Started on Lamictal 25 mg twice a day by Dr. Pandya during this admission. After 1 week, increase to 50 mg twice a day, and after another 1 week, 100 mg twice a day. Lamictal is good antiepileptic medication with mood stabilization effect also. Informed patient's to stop the Lamictal if she gets any rash. * Continue Vimpat to 100 mg twice a day for now per Dr. Pandya and then recommend slowly weaning off Vimpat because patient has previously experienced side eff ects from higher dose of Vimpat. Recommend decrease Vimpat to 50 mg twice a day after one week, and then discontinue Vimpat after another 1 week (when patient goes up to the maintenance Lamictal 100 mg twice a day dose). * Pending routine EEG * Patient had similar presentation in November 2021, underwent lumbar puncture, which was negative for encephalitis. Doubt encephalitis at this time. Will discontinue acyclovir. ID also following. * Telemetric monitoring * Fall risk * Patient was notified that because of seizure, per [place] DMV, to avoid driving for 6 months until seizure free, avoid heights, swim unassisted or using heavy machinery. * Recommend the patient to follow-up with her neurologist (Dr. Olsen) within 1-2 weeks as outpatient. Plan is discussed with patient, her who is at bedside and her nurse. Time with Patient: Less than 30
--- NOTE | 2022-10-16 14:00 | P.PN ---
Subjective Progress Note Date: 10/16/22 Patient is a 77-year-old female with a known history of seizure disorder currently on Vimpat, chronic back pain, GERD, hypertension, prior history of smoking and recent history of UTI about a week ago was brought to the hospital by EMS due to altered mental status and agitation. Patient cannot provide any history at this time. According to her at bedside patient was normal last night around 10 PM and went to bed. Patient was found in the morning on the side of the bed on the floor and was screaming out. Patient did have an episode of diarrhea. Patient's did take her to the bathroom and clean her up. She was confused and agitated, combative. EMS was called at the time. Otherwise did not have any witnessed seizure episodes. No focal deficit of facial droop noted. Patient was diagnosed with urinary tract infection about a week ago and was started on Keflex in the ER. According to her , all her symptoms started in the last diagnosed when she fell from the status. She had a bump on the forehead and was having shaking movements. She was seen at [facility]. Monitored for long-term seizure activity. Was started on Vimpat 100 mg twice daily which she has been taking at home. Patient complained that her seizure medications are making her anxious. Patient has been afebrile. No nausea or vomiting. Did not complain any headache or neck stiffness yesterday as per family.. CT head and cervical spine showed anterior bifrontal region is nondiagnostic due to degree of motion. The remainder head shows no acute intracranial abnormality. Moderate spondylitic changes, mild to lower cervical spine. Degenerative grade 1 spondylolisthesis C4-C5. Chest x-ray showed no acute process. CT abdomen pelvis showed incidentally 2 retained needle fragments in the subcutaneous of medial left upper extremity. Moderate distal colitis/proctitis. No abscess or free air. Moderate circumferential bladder wall thickening. Correlate with urinalysis to exclude cystitis. Goodwin catheter in place. Moderate to large hiatal hernia. Laboratory data showed WBC 24.0 hemoglobin 13.8 and platelets 352 Sodium 139 potassium 3.5 chloride 103 bicarb is 18 BUN 10 and creatinine 0.64 and blood sugar is 148 Liver enzymes are not elevated. Troponin x1 negative and albumin 4.7 Urinalysis negative for infection UDS is negative., Lactic acidosis with a level 4.3 10/14. Patient seen and examined. White count this morning is 14, hemoglobin is 12.5, phosphorus 3, magnesium 2. Patient is alert, able to tell me her name and place but then starts repeating her answers. Unable to obtain a detailed review of system at this time 10/15. Patient seen and examined. Patient laying comfortably in the bed. at bedside. Patient is much more alert a communicative compared to yesterday. Answering question appropriately 10/16. Patient seen and examined. Patient mental status back to normal. at the bedside patient answered all questions appropriately PHYSICAL EXAMINATION: GENERAL: The patient is alert , not in any acute distress. Well developed, well nourished. HEENT: Pupils are round and equally reacting to light. EOMI. No scleral icterus. No conjunctival pallor. Normocephalic, atraumatic. No pharyngeal erythema. No th yromegaly. CARDIOVASCULAR: S1 and S2 present. No murmurs, rubs, or gallops. PULMONARY: Chest is clear to auscultation, no wheezing or crackles. ABDOMEN: Soft, nontender, nondistended, normoactive bowel sounds. No palpable organomegaly. MUSCULOSKELETAL: No joint swelling or deformity. EXTREMITIES: No cyanosis, clubbing, or pedal edema. NEUROLOGICAL: Gross neurological examination did not reveal any focal deficits. SKIN: No rashes. Assessment and plan Altered mental status with agitation combative. Patient was found on the side of the bed. Possible seizures with postictal status versus metabolic encephalopathy versus infection. Leukocytosis with WBC count 24. Rule out infection vs reactive. Moderate distal colitis/proctitis with episode of diarrhea. 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 EEG results pending Continue Vimpat 200Twice a day Follow-up blood cultures and repeat lactic acid level. Follow-up on neurology recommendations Follow-up in ID recommendations Objective - Vital Signs Vital signs: Vital Signs Temp 97.8 F 10/16/22 11:59 Pulse 75 10/16/22 11:59 Resp 16 10/16/22 11:59 BP 170/95 10/16/22 11:59 Pulse Ox 96 10/16/22 11:59 FiO2 Intake & Output 10/15/22 10/16/22 10/16/22 18:59 06:59 18:59 Intake Total 354 240 Output Total 2225 800 Balance -1871 -800 240 Intake: Oral 354 240 Output: Urine 2225 800 Uretheral (Goodwin) 800 Other: Voiding Method Indwelling Catheter Indwelling Catheter Indwelling Catheter - Labs CBC & Chem 7: 10/15/22 07:50 10/16/22 05:50 Labs: Microbiology - Last 24 Hours (Table) 10/13/22 12:10 Blood Culture - Preliminary Blood 10/13/22 12:10 Blood Culture - Preliminary Blood
--- NOTE | 2022-10-16 21:53 | EEG ---
ELECTROENCEPHALOGRAM REPORT CLINICAL HISTORY: This is a 77-year-old woman with history of seizure, who has altered mental status. The video EEG is obtained to evaluate for seizure epileptiform activity. RELEVANT MEDICATIONS: 1. Vimpat. 2. Lamictal. EEG TYPE: A routine 21-channel EEG is performed with video using the 10/20 electrode placement system. DESCRIPTION: Wakefulness is only obtained. During awake state, the posterior-dominant rhythm consists of low voltage of 10 to 11 hertz activity. There is no physiological sleep architecture seen. There is no focal slowing. Interictal and ictal is none. ACTIVATION PROCEDURE: Photic stimulation did not evoke a posterior driving response. There is no abnormality during the photic stimulation. Hyperventilation is not performed. CLINICAL INTERPRETATION: This is a normal routine EEG. There is no focal slowing, epileptiform discharge, or seizure on the EEG. A normal routine EEG does not rule out underlying epilepsy. Clinical correlation is recommended. ISABELA / BURT: [id number] / MTDRosemary
--- NOTE | 2022-10-16 22:44 | P.PN ---
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 On today's evaluation that is 10/16/2022, the patient remains to be afebrile, the patient denies having any chest pain shortness of breath or cough left upper arm swelling and redness has improved , the patient denies having abdominal pain and denies diarrhea Objective - Vital Signs Vital signs: Vital Signs Temp 97.8 F 10/16/22 11:59 Pulse 75 10/16/22 11:59 Resp 16 10/16/22 11:59 BP 170/95 10/16/22 11:59 Pulse Ox 96 10/16/22 11:59 FiO2 Intake & Output 10/15/22 10/16/22 10/16/22 18:59 06:59 18:59 Intake Total 354 240 Output Total 2225 800 Balance -1871 -800 240 Intake: Oral 354 240 Output: Urine 2225 800 Uretheral (Goodwin) 800 Other: Voiding Method Indwelling Catheter Indwelling Catheter Indwelling Catheter - Exam GENERAL DESCRIPTION: An elderly male lying in bed in no distress RESPIRATORY SYSTEM: Unlabored breathing , decreased breath sounds at bases HEART: S1 S2 regular rate and rhythm , ABDOMEN: Soft , no tenderness EXTREMITIES: Left medial upper arm area of bruising and redness has decreased - Labs CBC & Chem 7: 10/15/22 07:50 10/16/22 05:50 Labs: Microbiology - Last 24 Hours (Table) 10/13/22 12:10 Blood Culture - Preliminary Blood 10/13/22 12:10 Blood Culture - Preliminary Blood Assessment and Plan (1) Cellulitis Current Visit: Yes Status: Acute Code(s): L03.90 - CELLULITIS, UNSPECIFIED SNOMED Code(s): 657757508 (2) Colitis Current Visit: Yes Status: Acute Code(s): K52.9 - NONINFECTIVE GASTROENTERITIS AND COLITIS, UNSPECIFIED SNOMED Code(s): 05795000 Plan: 1patient with a leukocytosis in this patient has been brought to the hospital after patient was found to be on the floor with mental status changes did have diarrhea and recently treated for UTI with antibiotic CT abdominal pelvis did shows evidence of colitis with a question of possible C. difficile colitis patient did have a negative UA did have some bruising to the left medial arm area but no evidence of any induration or fluctuation clinically doubt abscess at that site and retained foreign body was ruled out by plain x-ray 2-patient seemed to have shown clinical improvement , we will discontinue vancomycin continue the patient on Rocephin and the patient continued to improve to finish therapy with oral Ceftin and a close outpatient follow-up at the bedside questions were answered
[2022-10-17 07:31] LABS: Basophils # (A) 0.1 k/uL (0-0.2); Basophils % (A) 1 %; Eosinophils # (A) 0.3 k/uL (0-0.7); Eosinophils % (A) 3 %; HCT 38.7 % (34.0-46.0); HGB 13.2 gm/dL (11.4-16.0); Lymphocytes # (A) 2.4 k/uL (1.0-4.8); Lymphocytes % (A) 24 %; MCHC 34.2 g/dL (31.0-37.0); Mean Platelet Volume 7.2; Monocytes # (A) 0.6 k/uL (0-1.0); Monocytes % (A) 6 %; Neutrophils # (A) 6.4 k/uL (1.3-7.7); Neutrophils % (A) 64 %; Platelet Count 378 k/uL (150-450); RDW 12.8 % (11.5-15.5); WBC 9.9 k/uL (3.8-10.6)
[2022-10-17 07:46] LABS: ALT 29 U/L (4-34); AST 32 U/L (14-36); African American GFR (CKD) >90 (>60 ml/min/1.73 sqM); Albumin 3.8 g/dL (3.5-5.0); Alkaline Phosphatase 96 U/L (38-126); Anion Gap 7 mmol/L; Blood Urea Nitrogen 6 mg/dL (7-17); Calcium 9.1 mg/dL (8.4-10.2); Carbon Dioxide 28 mmol/L (22-30); Chloride 103 mmol/L (98-107); Glucose 102 mg/dL (74-99); Non-African American GFR(CKD) >90 (>60 ml/min/1.73 sqM); Potassium 3.4 mmol/L (3.5-5.1); Sodium 138 mmol/L (137-145); Total Bilirubin 0.5 mg/dL (0.2-1.3); Total Protein 6.5 g/dL (6.3-8.2)
[2022-10-17] MEDS: LACOSAMIDE 50 MG TABLET PO SCH (08:57)
[2022-10-17] MEDS: lamoTRIgine 25 MG TAB PO SCH (08:57)
[2022-10-17] MEDS: ASCORBIC ACID 500 MG TAB PO SCH (08:57)
[2022-10-17] MEDS: HEPARIN SODIUM,PORCINE/PF 5,000 UNIT/0.5 ML SYRINGE SQ SCH (08:57)
[2022-10-17] MEDS: PROPRANOLOL 10 MG TAB PO SCH ×2 (08:58→14:06)
[2022-10-17 10:47] VITALS: TEMP 97.9
--- NOTE | 2022-10-17 11:44 | P.PN ---
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 On today's evaluation that is 10/17/2022, the patient continues to be afebrile, the patient denies chest pain shortness of breath or cough, the patient left upper arm swelling and redness has improved , the patient denies having abdominal pain and denies any worsening diarrhea Objective - Vital Signs Vital signs: Vital Signs Temp 98.3 F 10/17/22 03:11 Pulse 63 10/17/22 03:11 Resp 16 10/17/22 03:11 BP 189/96 10/17/22 03:11 Pulse Ox 96 10/17/22 03:11 FiO2 Intake & Output 10/16/22 10/17/22 10/17/22 18:59 06:59 18:59 Intake Total 240 1600 180 Output Total 1050 Balance 240 550 180 Intake: Intake, IV Titration 1200 Amount Sodium Chloride 0.9% 1, 1200 000 ml @ 75 mls/hr IV . [id number] [facility] Rx#:[id number] Oral 240 400 180 Output: Urine 1050 Other: Voiding Method Indwelling Catheter Indwelling Catheter # Voids 2 - Exam GENERAL DESCRIPTION: An elderly male lying in bed in no distress RESPIRATORY SYSTEM: Unlabored breathing , decreased breath sounds at bases HEART: S1 S2 regular rate and rhythm , ABDOMEN: Soft , no tenderness EXTREMITIES: Left medial upper arm area of bruising and redness has decreased - Labs CBC & Chem 7: 10/17/22 07:04 10/17/22 07:04 Labs: Abnormal Lab Results - Last 24 Hours (Table) 10/17/22 Range/Units 07:04 Potassium 3.4 L (3.5-5.1) mmol/L BUN 6 L (7-17) mg/dL Glucose 102 H (74-99) mg/dL Microbiology - Last 24 Hours (Table) 10/13/22 12:10 Blood Culture - Preliminary Blood 10/13/22 12:10 Blood Culture - Preliminary Blood Assessment and Plan (1) Cellulitis Current Visit: Yes Status: Acute Code(s): L03.90 - CELLULITIS, UNSPECIFIED SNOMED Code(s): 946179885 (2) Colitis Current Visit: Yes Status: Acute Code(s): K52.9 - NONINFECTIVE GASTROENTERITIS AND COLITIS, UNSPECIFIED SNOMED Code(s): 24933153 Plan: 1patient with a leukocytosis in this patient has been brought to the hospital after patient was found to be on the floor with mental status changes did have diarrhea and recently treated for UTI with antibiotic CT abdominal pelvis did shows evidence of colitis with a question of possible C. difficile colitis patient did have a negative UA did have some bruising to the left medial arm area but no evidence of any induration or fluctuation clinically doubt abscess at that site and retained foreign body was ruled out by plain x-ray 2-patient seemed to have shown clinical improvement , and the patient white count has normalized possible source colitis, versus left upper extremity cellulitis overall improvement Rocephin she will finish therapy with oral Ceftin and Flagyl 7 days and a close patient follow-up Time with Patient: Less than 30
--- NOTE | 2022-10-17 13:33 | P.DS ---
Providers Date of admission: 10/13/22 15:13 Expected date of discharge: 10/17/22 Attending physician: Danish Yung Consults: 10/13/22 15:43 Consult Physician Routine Consulting Provider: Jw Pandya Consult Reason/Comments: Altered mental stataus,agitation Do you want consulting provider notified?: Yes 10/14/22 00:28 Consult Physician Routine Consulting Provider: Katrin Nunes Consult Reason/Comments: Leukocytosis Do you want consulting provider notified?: Yes, Notify in am Primary care physician: [facility] Course: Discharge diagnoses; Acute metabolic encephalopathy Possible seizures with postictal status versus metabolic encephalopathy versus infection. Leukocytosis with WBC count 24. Rule out infection vs reactive. Moderate distal colitis/proctitis with episode of diarrhea. 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 Patient cannot provide any history at this time. According to her at bedside patient was normal last night around 10 PM and went to bed. Patient was found in the morning on the side of the bed on the floor and was screaming out. Patient did have an episode of diarrhea. Patient's did take her to the bathroom and clean her up. She was confused and agitated, combative. EMS was called at the time. Otherwise did not have any witnessed seizure episodes. No focal deficit of facial droop noted. Patient was diagnosed with urinary tract infection about a week ago and was started on Keflex in the ER. According to her , all her symptoms started in the last diagnosed when she fell from the status. She had a bump on the forehead and was having shaking movements. She was seen at [facility]. Monitored for long-term seizure activity. Was started on Vimpat 100 mg twice daily which she has been taking at home. Patient complained that her seizure medications are making her anxious. Patient has been afebrile. No nausea or vomiting. Did not complain any headache or neck stiffness yesterday as per family.. CT head and cervical spine showed anterior bifrontal region is nondiagnostic due to degree of motion. The remainder head shows no acute intracranial abnormality. Moderate spondylitic changes, mild to lower cervical spine. Degenerative grade 1 spondylolisthesis C4-C5. Chest x-ray showed no acute process. CT abdomen pelvis showed incidentally 2 retained needle fragments in the subcutaneous of medial left upper extremity. Moderate distal colitis/proctitis. No abscess or free air. Moderate circumferential bladder wall thickening. Correlate with urinalysis to exclude cystitis. Goodwin catheter in place. Moderate to large hiatal hernia. Laboratory data showed WBC 24.0 hemoglobin 13.8 and platelets 352 Sodium 139 potassium 3.5 chloride 103 bicarb is 18 BUN 10 and creatinine 0.64 and blood sugar is 148 Liver enzymes are not elevated. Troponin x1 negative and albumin 4.7 Urinalysis negative for infection UDS is negative., Lactic acidosis with a level 4.3 10/14. Patient seen and examined. White count this morning is 14, hemoglobin is 12.5, phosphorus 3, magnesium 2. Patient is alert, able to tell me her name and place but then starts repeating her answers. Unable to obtain a detailed review of system at this time 10/15. Patient seen and examined. Patient laying comfortably in the bed. at bedside. Patient is much more alert a communicative compared to yesterday. Answering question appropriately 10/16. Patient seen and examined. Patient mental status back to normal. at the bedside patient answered all questions appropriately 10/17. Patient seen and examined. ID recommended discharging patient on Ceftin and Flagyl. Neurology recommended lamictal 25 mg twice a day for 1 week, After 1 week, increase to 50 mg twice a day. Dose needs to be increased further after she follows up with neurology PHYSICAL EXAMINATION: GENERAL: The patient is alert and oriented x3, not in any acute distress. Well developed, well nourished. HEENT: Pupils are round and equally reacting to light. EOMI. No scleral icterus. No conjunctival pallor. Normocephalic, atraumatic. No pharyngeal erythema. No thyromegaly. CARDIOVASCULAR: S1 and S2 present. No murmurs, rubs, or gallops. PULMONARY: Chest is clear to auscultation, no wheezing or crackles. ABDOMEN: Soft, nontender, nondistended, normoactive bowel sounds. No palpable organomegaly. MUSCULOSKELETAL: No joint swelling or deformity. EXTREMITIES: No cyanosis, clubbing, or pedal edema. NEUROLOGICAL: Gross neurological examination did not reveal any focal deficits. SKIN: No rashes. Plan - Discharge Summary Discharge Rx Participant: No New Discharge Prescriptions: New lamoTRIgine [LaMICtal] 25 mg PO BID #60 tab cefUROXime axetiL [Ceftin] 500 mg PO BID 1 Days #14 tab metroNIDAZOLE [Flagyl] 500 mg PO QID #21 tab Continue Propranolol [Inderal] 10 mg PO BID@0800,1400 Baclofen [Lioresal] 10 mg PO HS Lacosamide [Vimpat] 100 mg PO BID Baclofen [Lioresal] 10 mg PO DAILY PRN PRN Reason: as tolerated Discharge Medication List Baclofen [Lioresal] 10 mg PO DAILY PRN 10/13/22 [History] Baclofen [Lioresal] 10 mg PO HS 10/13/22 [History] Lacosamide [Vimpat] 100 mg PO BID 10/13/22 [History] Propranolol [Inderal] 10 mg PO BID@0800,1400 10/13/22 [History] cefUROXime axetiL [Ceftin] 500 mg PO BID 1 Days #14 tab 10/17/22 [Rx] lamoTRIgine [LaMICtal] 25 mg PO BID #60 tab 10/17/22 [Rx] metroNIDAZOLE [Flagyl] 500 mg PO QID #21 tab 10/17/22 [Rx] Follow up Appointment(s)/Referral(s): Ankush Thomas MD [Primary Care Provider] - 1-2 days Betito Olsen DO [STAFF PHYSICIAN] - 1 Week Activity/Diet/Wound Care/Special Instructions: Being discharged on Lamictal 25 mg twice a day. After 1 week, increase to 50 mg twice a day, follow-up with neurology with in One week Discharge Disposition: HOME WITH HOME HEALTH SERVICES
[2022-10-17 14:13] VITALS: BP 174/97; PULSE 66
--- NOTE | 2022-10-17 15:07 | CDI ---
Documentation Clarification Form Date: 10/17/2022 2:50:25 PM From: Livia Cool RN CCDS Phone: [phone] Admit Date: 10/13/2022 3:13:00 PM Patient Name: Edna Howell Visit Number: [id number] Discharge Date: ATTENTION: The Clinical Documentation Specialists (CDI) and [facility] Coding Staff appreciate your assistance in clarifying documentation. Please respond to the clarification below the line at the bottom and electronically sign. The CDI & [facility] Coding staff will review the response and follow-up if needed. Please note: Queries are made part of the Legal Health Record. If you have any questions, please contact the author of this message via ITS. Dr. Jose Alejandro Cervantes Sepsis is documented ED note, 10/13, but is not noted in subsequent documentation. Clarification is requested. History/Risk Factors: 77-year-old female presents after being found on the ground screaming out. Medical History: Closed head injury, recent UTI, seizure, GERD and HTN. 10/13, ED note. Clinical Indicators: 10/13: VSS 176/96; HR 120; Temp 96.8F; RR 18; SpO2 98% ra 10/13: Labs Wbc 24.0; Neutrophils 21.8; Lactic acid 4.3 10/13: CT ABD PELVIS: Moderate distal colitis / proctitis 10/17, Discharge summary: ID discharging patient on Ceftin and Flagyl. Moderate distal colitis/ proctitis with episode of diarrhea. Treatment: 10/13: 0.9NS 500ml IV bolus x 2 ; Rocephin IVP x 1 ; Vancomycin IVPB x 1; Acyclovir IVPB Q 8 HR d/c 10/15; 10/14 Vancomycin IVPB Q12H dc 10/16; Ceftriaxone IVPB Q24HR; Please clarify if the Sepsis is: [ x ] Sepsis POA confirmed [ ] Sepsis ruled out [ ] Other condition, please specify [ ] Unable to determine (Template Last Revised: July 2020) MTDD
--- NOTE | 2022-10-17 18:52 | P.PN ---
Subjective Progress Note Date: 10/17/22 Patient seen at bedside and she is accompanied with her feels she is doing better. Patient feels she is doing better. No further confusion. Objective - Vital Signs Vital signs: Vital Signs Temp 97.9 F 10/17/22 08:00 Pulse 66 10/17/22 12:00 Resp 16 10/17/22 08:00 BP 174/97 10/17/22 12:00 Pulse Ox 97 10/17/22 12:00 FiO2 Intake & Output 10/16/22 10/17/22 10/17/22 18:59 06:59 18:59 Intake Total 240 1600 230 Output Total 1050 Balance 240 550 230 Intake: Intake, IV Titration 1200 50 Amount Sodium Chloride 0.9% 1, 1200 000 ml @ 75 mls/hr IV . [id number] [facility] Rx#:[id number] cefTRIAXone 2 gm In 50 Sodium Chloride 0.9% 50 ml @ 100 mls/hr IVPB Q24HR [facility] Rx#:[id number] Oral 240 400 180 Output: Urine 1050 Other: Voiding Method Indwelling Catheter Indwelling Catheter Indwelling Catheter # Voids 2 - Exam Neuro: Is awake, alert, oriented to self, place and time. Is following simple commands. No aphasia or neglect. Pupils are round, equal and reactive to light. Visual june are full to confrontation. No facial weakness. No dysarthria. Motor: Strength is moving all extremities above gravity without focality. Cerebellar: Normal finger to nose bilaterally. - Labs CBC & Chem 7: 10/17/22 07:04 10/17/22 07:04 Labs: Abnormal Lab Results - Last 24 Hours (Table) 10/17/22 Range/Units 07:04 Potassium 3.4 L (3.5-5.1) mmol/L BUN 6 L (7-17) mg/dL Glucose 102 H (74-99) mg/dL Microbiology - Last 24 Hours (Table) 10/13/22 12:10 Blood Culture - Preliminary Blood 10/13/22 12:10 Blood Culture - Preliminary Blood Assessment and Plan Assessment: * Acute encephalopathy of unclear etiology. Probable another unwitnessed seizure with postictal state. Patient has evidence of tongue bite domonique on the left--mentation improving. * Patient has similar presentation with possible unwitnessed seizure in November 2021, underwent extensive workup, and was treated with Keppra. Patient had significant side effects from Keppra, switched to Vimpat in May 2022, currently on low-dose Vimpat 50 mg twice a day. Higher doses produces anxiety attacks. * Diabetes * Hypertension * Colitis with diarrhea * Chronic back pain Plan: * Started on Lamictal 25 mg twice a day by Dr. Pandya during this admission. After 1 week, increase to 50 mg twice a day, and after another 1 week, 100 mg twice a day. Lamictal is good antiepileptic medication with mood stabilization effect also. Informed patient's to stop the Lamictal if she gets any rash. * Continue Vimpat to 100 mg twice a day for now per Dr. Pandya and then recommend slowly weaning off Vimpat because patient has previously experienced side effects from higher dose of Vimpat. Recommend decrease Vimpat to 50 mg twice a day after one week, and then discontinue Vimpat after another 1 week (when patient goes up to the maintenance Lamictal 100 mg twice a day dose). * Routine EEG: Normal. There is no focal slowing, epileptiform discharges or seizure on the EEG. * Patient had similar presentation in November 2021, underwent lumbar puncture, which was negative for encephalitis. Doubt encephalitis at this time. Will discontinue acyclovir. ID also following. * Telemetric monitoring * Fall risk * Patient was notified that because of seizure, per [place] DMV, to avoid driving for 6 months until seizure free, avoid heights, swim unassisted or using heavy machinery. * Recommend the patient to follow-up with her neurologist (Dr. Olsen) within 1-2 weeks as outpatient. Plan is discussed with patient, her who is at bedside and primary team. There is no further neurological work-up. Patient is clear for discharge. Time with Patient: Less than 30
== END 2022-10-17 14:58 | disposition home health service (06) | DRG 871 ==
LOC: EC 09:47 → 4SSUR 15:13 → 3SCARD 16:11
PROVIDERS: ADMIT Hospitalist; ATTEND Hospitalist
PROC: 4A10X4Z Monitoring of Central Nervous Electrical Activity, External Approach (ICD-10-PCS; principal; 2022-10-16)
DX: A41.9 Sepsis, unspecified organism (principal); G93.41 Metabolic encephalopathy; L03.114 Cellulitis of left upper limb; K52.9 Noninfective gastroenteritis and colitis, unspecified; I10 Essential (primary) hypertension; G89.29 Other chronic pain; M54.9 Dorsalgia, unspecified; K62.89 Other specified diseases of anus and rectum; K44.9 Diaphragmatic hernia without obstruction or gangrene; G40.909 Epilepsy, unspecified, not intractable, without status epilepticus; K21.9 Gastro-esophageal reflux disease without esophagitis; Z87.440 Personal history of urinary (tract) infections; M43.12 Spondylolisthesis, cervical region; Z91.81 History of falling; Z87.828 Personal history of other (healed) physical injury and trauma; Z79.899 Other long term (current) drug therapy; Z87.442 Personal history of urinary calculi; Z87.891 Personal history of nicotine dependence
CPT/HCPCS: 36415; 70450; 71045; 72125; 74177; 80053; 80202; 80306; 81003; 82140; 82565; 83605; 83735; 84100; 84145; 84484; 85025; 85610; 85730; 87040; 93005; 94760; 95816; 96361; 96365; 96366; 96372; 96375; 99285

== ENCOUNTER 2022-12-01 08:21 | Observation (INO) | payer MEDICARE ==
[2022-12-01 08:26] LABS: Glucose,Whole Blood 198 mg/dL (70-110)
[2022-12-01] MEDS ORDERED: SODIUM CHLORIDE 0.9% 1,000 ML IV STA (08:31)
[2022-12-01] MEDS ORDERED: LORazepam 2 MG/ML INJ IV STA ×5 (08:40→19:55)
[2022-12-01 08:45] LABS: Hypochromasia Marked; MCH 30.7 pg (25.0-35.0); Mean Platelet Volume 7.9; Platelet Count 398 k/uL (150-450); RBC 4.24 m/uL (3.80-5.40); WBC 14.6 k/uL (3.8-10.6)
[2022-12-01] MEDS ORDERED: Lacosamide IV (ages 17+ yrs) 200 MG/20 ML ML IVP STA ×2 (08:46→17:48)
--- NOTE | 2022-12-01 08:55 | ED ---
Altered Mental Status HPI - General Chief Complaint: Altered Mental Status Stated Complaint: AMS Time Seen by Provider: 12/01/22 08:30 Source: EMS Mode of arrival: EMS - History of Present Illness Initial Comments: 77-year-old female with past medical history of diabetes, seizure disorder who presents to the emergency department for altered mental status. Last known well was around 645 this morning. EMS states that they arrived the patient had a 2 minute seizure. Patient did have incontinence. She was transferred to the hospital without verbal response and had a second seizure episode in route. They provided her with 5 mg of Versed. Patient arrives and is not able to answer questions. Review of her chart demonstrate that she does have seizure history and takes Vimpat and Lamictal. She had a traumatic brain injury a few months ago. History is limited due to patient's current status arrives. States that the patient has had seizures since her head inj ury. She is supposed to take Lamictal however has not taken it in a month because it caused her to have shakes - Related Data Previous Rx's Medication Instructions Recorded Divalproex [Depakote] 250 mg PO BID #60 tab 12/04/22 cefUROXime axetiL [Ceftin] 500 mg PO BID 3 Days #6 tab 12/04/22 Allergies Allergy/AdvReac Type Severity Reaction Status Date / Time amoxicillin AdvReac Diarrhea Verified 10/13/22 10:20 lamotrigine [From Lamictal] AdvReac confusion Verified 12/01/22 11:33 and tremors Review of Systems ROS Statement: Those systems with pertinent positive or pertinent negative responses have been documented in the HPI. ROS Other: All systems not noted in ROS Statement are negative. Past Medical History Past Medical History: Diabetes Mellitus, GERD/Reflux, Hypertension Additional Past Medical History / Comment(s): Colitis, recurrent diarrhea, hyperglycemia, chronic back pain, recurrent uti's, AMS, possible seizure History of Any Multi-Drug Resistant Organisms: None Reported Past Surgical History: No Surgical Hx Reported Past Anesthesia/Blood Transfusion Reactions: Unable to Obtain Past Psychological History: No Psychological Hx Reported Smoking Status: Former smoker Past Alcohol Use History: None Reported Past Drug Use History: None Reported - Past Family History Mother Family Medical History: Diabetes Mellitus General Exam Limitations: altered mental status General appearance: lethargic Head exam: Present: atraumatic, normocephalic, normal inspection Eye exam: Present: normal appearance, PERRL, EOMI. Absent: scleral icterus, conjunctival injection, periorbital swelling Respiratory exam: Present: normal lung sounds bilaterally. Absent: respiratory distress, wheezes, rales, rhonchi, stridor Cardiovascular Exam: Present: normal rhythm, tachycardia GI/Abdominal exam: Present: soft, normal bowel sounds. Absent: distended, tenderness, guarding, rebound, rigid Extremities exam: Present: other (Withdraws to pain in all extremities) Neurological exam: Present: altered Course Vital Signs 12/01/22 12/01/22 12/01/22 08:24 09:18 11:10 Temperature 97.3 F L Pulse Rate 114 H 112 H 104 H Respiratory 22 20 18 Rate Blood Pressure 177/78 133/62 126/73 O2 Sat by Pulse 96 100 95 Oximetry 12/01/22 12/01/22 12/01/22 12:15 16:23 18:04 Temperature Pulse Rate 101 H 118 H 117 H Respiratory 18 24 24 Rate Blood Pressure 159/85 186/99 167/99 O2 Sat by Pulse 94 L 95 98 Oximetry 12/01/22 12/01/22 20:06 21:31 Temperature Pulse Rate 89 113 H Respiratory 18 22 Rate Blood Pressure 159/53 169/90 O2 Sat by Pulse 96 96 Oximetry Medical Decision Making - Medical Decision Making Was pt. sent in by a medical professional or institution ([facility], BACK TENDER, urgent care, hospital, or usp...) When possible be specific @ -No Did you speak to anyone other than the patient for history (EMS, parent, family, police, friend...)? What history was obtained from this source @ -, ems Did you review nursing and triage notes (agree or disagree)? Why? @ -I reviewed and agree with nursing and triage notes Were old charts reviewed (outside hosp., previous admission, EMS record, old EKG, old radiological studies, urgent care reports/EKG's, usp records)? Report findings @ - old charts are reviewed - patient previously here for seizures Differential Diagnosis (chest pain, altered mental status, abdominal pain women, abdominal pain men, vaginal bleeding, weakness, fever, dyspnea, syncope, headache, dizziness, GI bleed, back pain, seizure, CVA, palpatations, mental health, musculoskeletal)? @ -Differential Seizure: Recurrent seizure disorder, febrile seizure, alcohol withdrawal, stimulants, meningitis, encephalitis, intercranial hemorrhage, intracranial tumor, stroke, eclampsia, thyrotoxicosis, hypocalcemia, hyponatremia, hypernatremia, hypomagnesemia, psychogenic, this is not meant to be an all-inclusive list. EKG interpreted by me (3pts min.). @ -Yes and demonstrates sinus tachycardia with a rate of 123. CT interval 155. QRS 78. QTC of 412. No acute ST segment elevation or depression X-rays interpreted by me (1pt min.). @ -No acute process CT interpreted by me (1pt min.). @ -No acute process U/S interpreted by me (1pt. min.). @ -None done What testing was considered but not performed or refused? (CT, X-rays, U/S, labs)? Why? @ -None What meds were considered but not given or refused? Why? @ -None Did you discuss the management of the patient with other professionals (professionals i.e. , PA, BACK TENDER, lab, RT, psych nurse, social media designer, respiratory technician, teacher, disabilities services officer, hospice case manager)? Give summary @ -Dr. Ramsay Was smoking cessation discussed for >3mins.? @ -No Was critical care preformed (if so, how long)? @ -No Were there social determinants of health that impacted care today? How? (Homelessness, low income, unemployed, alcoholism, drug addiction, transportation, low edu. Level, literacy, decrease access to med. care, half-way, rehab)? @ -No Was there de-escalation of care discussed even if they declined (Discuss DNR or withdrawal of care, Hospice)? DNR status @ -No What co-morbidities impacted this encounter? (DM, HTN, Smoking, COPD, CAD, Cancer, CVA, ARF, Chemo, Hep., AIDS, mental health diagnosis, sleep apnea, morbid obesity)? @ -seizure disorder Was patient admitted / discharged? Hospital course, mention meds given and route, prescriptions, significant lab abnormalities, going to OR and other pertinent info. @ -Upon arrival patient was placed in a trauma 2. A thorough history and physical exam is performed. She does withdraw to pain in all extremities. Is able to open her eyes. IV was established and laboratories is conducted. Patient was given 5 mg of Versed by EMS for seizure-like activity. She is watched for approximately 15 minutes when she begins having a full tonic-clonic seizure. Patient does become more markedly hypoxic. She is placed on a nonrebreather and is assisted with ventilations. She is given 2 mg of Ativan and seizure did stop. Laboratory studies are conducted and reviewed. Discussed the results with the patient's . Will admit for neurology consultation. Spoke with Dr. Ramsay who agreed to admit the patient Undiagnosed new problem with uncertain prognosis? @ -yes Drug Therapy requiring intensive monitoring for toxicity (Heparin, Nitro, Insulin, Cardizem)? @ -No Were any procedures done? @ -No Diagnosis/symptom? @ -acute breakthrough seizure, medication noncompliance Acute, or Chronic, or Acute on Chronic? @ -acute Uncomplicated (without systemic symptoms) or Complicated (systemic symptoms)? @ -complicated Side effects of treatment? @ -No Exacerbation, Progression, or Severe Exacerbation? @ -No Poses a threat to life or bodily function? How? (Chest pain, [place], HI, pneumonia, PE, COPD, DKA, ARF, appy, cholecystitis, CVA, Diverticulitis, Homicidal, Suicidal, threat to staff... and all critical care pts) @ -No - Lab Data Result diagrams: 12/03/22 08:24 12/03/22 08:24 Lab Results 12/01/22 12/01/22 12/01/22 Range/Units 08:24 08:34 08:34 WBC 14.6 H (3.8-10.6) k/uL RBC 4.24 (3.80-5.40) m/uL Hgb 13.0 (11.4-16.0) gm/dL Hct 42.0 (34.0-46.0) % MCV 99.1 D (80.0-100.0) fL MCH 30.7 (25.0-35.0) pg MCHC 31.0 (31.0-37.0) g/dL RDW 13.0 (11.5-15.5) % Plt Count 398 (150-450) k/uL MPV 7.9 Neutrophils % (Manual) 48 % Lymphocytes % (Manual) 45 % Monocytes % (Manual) 4 % Eosinophils % (Manual) 3 % Neutrophils # (Manual) 7.01 (1.3-7.7) k/uL Lymphocytes # (Manual) 6.57 H (1.0-4.8) k/uL Monocytes # (Manual) 0.58 (0-1.0) k/uL Eosinophils # (Manual) 0.44 (0-0.7) k/uL Nucleated RBCs 0 (0-0) /100 WBC Manual Slide Review Performed Hypochromasia Marked Rouleaux Present Sodium 141 (137-145) mmol/L Potassium 3.8 (3.5-5.1) mmol/L Chloride 104 (98-107) mmol/L Carbon Dioxide 7 L* (22-30) mmol/L Anion Gap 30 mmol/L BUN 10 (7-17) mg/dL Creatinine 0.91 (0.52-1.04) mg/dL Est GFR (CKD-EPI)AfAm 71 (>60 ml/min/1.73 sqM) Est GFR (CKD-EPI)NonAf 62 (>60 ml/min/1.73 sqM) Glucose 219 H (74-99) mg/dL POC Glucose (mg/dL) 198 H (70-110) mg/dL POC Glu Veterinary Microbiologist ID Julius Rebollar Lactic Ac Sepsis Rflx Plasma Lactic Acid Andi (0.7-2.0) mmol/L Calcium 9.5 (8.4-10.2) mg/dL Magnesium 2.5 H (1.6-2.3) mg/dL Total Bilirubin 0.8 (0.2-1.3) mg/dL AST 43 H (14-36) U/L ALT 42 H (4-34) U/L Alkaline Phosphatase 89 (38-126) U/L Creatine Kinase 195 H (30-135) U/L Total Protein 7.7 (6.3-8.2) g/dL Albumin 4.8 (3.5-5.0) g/dL Lamotrigine (2.0-15.0) ug/mL Serum Alcohol <10 mg/dL 12/01/22 12/01/22 12/01/22 Range/Units 08:34 08:34 09:35 WBC (3.8-10.6) k/uL RBC (3.80-5.40) m/uL Hgb (11.4-16.0) gm/dL Hct (34.0-46.0) % MCV (80.0-100.0) fL MCH (25.0-35.0) pg MCHC (31.0-37.0) g/dL RDW (11.5-15.5) % Plt Count (150-450) k/uL MPV Neutrophils % (Manual) % Lymphocytes % (Manual) % Monocytes % (Manual) % Eosinophils % (Manual) % Neutrophils # (Manual) (1.3-7.7) k/uL Lymphocytes # (Manual) (1.0-4.8) k/uL Monocytes # (Manual) (0-1.0) k/uL Eosinophils # (Manual) (0-0.7) k/uL Nucleated RBCs (0-0) /100 WBC Manual Slide Review Hypochromasia Rouleaux Sodium (137-145) mmol/L Potassium (3.5-5.1) mmol/L Chloride (98-107) mmol/L Carbon Dioxide (22-30) mmol/L Anion Gap mmol/L BUN (7-17) mg/dL Creatinine (0.52-1.04) mg/dL Est GFR (CKD-EPI)AfAm (>60 ml/min/1.73 sqM) Est GFR (CKD-EPI)NonAf (>60 ml/min/1.73 sqM) Glucose (74-99) mg/dL POC Glucose (mg/dL) (70-110) mg/dL POC Glu Veterinary Microbiologist ID Lactic Ac Sepsis Rflx Y Plasma Lactic Acid Andi 21.3 H* (0.7-2.0) mmol/L Calcium (8.4-10.2) mg/dL Magnesium (1.6-2.3) mg/dL Total Bilirubin (0.2-1.3) mg/dL AST (14-36) U/L ALT (4-34) U/L Alkaline Phosphatase (38-126) U/L Creatine Kinase (30-135) U/L Total Protein (6.3-8.2) g/dL Albumin (3.5-5.0) g/dL Lamotrigine <0.2 (2.0-15.0) ug/mL Serum Alcohol mg/dL Disposition Clinical Impression: Breakthrough seizure, Lactic acidosis Disposition: ADMITTED IP TO THIS HOSP Condition: Fair Is patient prescribed a controlled substance at d/c from ED?: No Time of Disposition: 10:59 Decision to Admit Reason: Admit from EC Decision Date: 12/01/22 Decision Time: 10:59
[2022-12-01 08:57] LABS: MCV 99.1 fL (80.0-100.0)
[2022-12-01 09:08] LABS: African American GFR (CKD) 71 (>60 ml/min/1.73 sqM); Albumin 4.8 g/dL (3.5-5.0); Alcohol <10 mg/dL; Anion Gap 30 mmol/L; Blood Urea Nitrogen 10 mg/dL (7-17); Calcium 9.5 mg/dL (8.4-10.2); Chloride 104 mmol/L (98-107); Creatine Kinase 195 U/L (30-135); Glucose 219 mg/dL (74-99); Non-African American GFR(CKD) 62 (>60 ml/min/1.73 sqM); Sodium 141 mmol/L (137-145); Total Bilirubin 0.8 mg/dL (0.2-1.3); Total Protein 7.7 g/dL (6.3-8.2)
[2022-12-01 09:09] LABS: Carbon Dioxide 7 mmol/L (22-30)
[2022-12-01 09:10] LABS: AST 43 U/L (14-36); Alkaline Phosphatase 89 U/L (38-126); Magnesium 2.5 mg/dL (1.6-2.3); Potassium 3.8 mmol/L (3.5-5.1)
[2022-12-01 09:13] LABS: Eosinophils # (M) 0.44 k/uL (0-0.7); Lymphocytes # (M) 6.57 k/uL (1.0-4.8); Monocytes # (M) 0.58 k/uL (0-1.0); Neutrophils # (M) 7.01 k/uL (1.3-7.7); Neutrophils % (M) 48 %; Nucleated Red Blood Cells 0 /100 WBC (0-0); Total Cells Counted 100
[2022-12-01 09:17] LABS: Rouleaux Present
--- NOTE | 2022-12-01 09:20 | CT ---
EXAMINATION TYPE: CT brain wo con DATE OF EXAM: 12/01/2022 COMPARISON: 10/13/2022 HISTORY: Seizure activity CT DLP: 1099.6 mGycm Automated exposure control for dose reduction was used. FINDINGS: Moderate generalized degenerative change. Periventricular low attenuation. No acute hemorrhage or mas s effect. Calvarium is intact. Orbits are symmetric. IMPRESSION: DEGENERATIVE AND NONSPECIFIC WHITE MATTER CHANGE MOST TYPICAL OF REMOTE WHITE MATTER ISCHEMIA.
[2022-12-01 09:35] LABS: ALT 42 U/L (4-34)
[2022-12-01] MEDS ORDERED: NALOXONE 0.4 MG/ML 1 ML VIAL IV PRN (11:00)
[2022-12-01 12:43] LABS: Appearance,Urine Cloudy (Clear); Bacteria,Urine Moderate /hpf; Bilirubin,Urine Negative (Negative); Blood,Urine Negative (Negative); Color,Urine Light Yellow; Glucose,Urine (UA) Negative (Negative); Ketones,Urine Negative (Negative); Leukocyte Esterase,Urine Moderate (Negative); Mucus,Urine Rare /hpf; Nitrite,Urine Negative (Negative); Protein,Urine Negative (Negative); Specific Gravity,Urine 1.011 (1.001-1.035); Squamous Epithelial Cell,Urine 6 /hpf (0-4); Urobilinogen,Urine <2.0 mg/dL (<2.0); WBC,Urine 12 /hpf (0-5)
--- NOTE | 2022-12-01 17:07 | P.CNNES ---
History of Present Illness Consult date: 12/01/22 Requesting physician: Martha Bey Reason for Consult: seizure, hx of seizure disorder History of Present Illness: Since a 77-year-old woman with history of seizures, not on any antiepileptic drug because of side effects and was tried on different medications resented emergency department because altered mental status. Patient is at bedside but appears to be somewhat poor historian. Patient is known to our neurology service. According to the patient's and he stated that patient's had a long-term EEG over at [facility] and was told his nonepileptic seizures. She's followed up with Dr. Olsen who is her neurologist and the the stated that he put her on a seizure medication but she stopped about 3 weeks ago since it was making her very sleepy. He states that she was doing well without any seizure medication for the past 2 weeks onto recently and he found her unresponsive today. Per the ED physician is seems that the hand patient had a two-minute witnessed seizure that was witnessed by EMS when they arrived. She was incontinent. She had a second seizure on route to our facilit y. Patient was given 5 mg of Versed. In the ED the patient had a full tonic- clonic seizure per the ED physician and she was hypoxic during that this episode and she had to be placed on nonrebreather. His stopped with a 2 mg Ativan. The the patient has taken herself off of antiepileptic drugs for 3 weeks because of side effects. The does not know the name of the medication. He states that she did not notify her neurologist that she the she could not tolerate the medication took herself off the medication. denies that the patient drinks alcohol or uses any illicit drug use. Of note we seen the patient last in our facility on 10/13/2022 and she had an EEG which was normal. My colleague (Dr. Pandya) started her on rectal 25 mg 1 twice a day and to titrate on 100 mg twice a day. The titration was to go up every week. It seems that the patient had a rash after being on 50 mg twice a day as a result she stopped medication. Also during that admission she was on Vimpat but could not tolerate it so was being weaned down in our facility. He also could not tolerate Keppra in the past. He is referred to our notes for further details. The install and repair technician called her neurologist office and that they stated that the patient had a long-term EEG at [facility] in June for 3 days and the her events were epileptic in nature. They started her on Depakote seems that she was on Depakote in and I'm not sure if she cannot tolerate or not and the does not recall as well. Some of the workup during his hospital visit consisted of: Heart rate is in the 100-110's. She is afebrile. Pulse ox is 96% room air. White blood cells 14.6K Initial serum glucose is 219, POC glucose is 198, initial plasma lactic acid venous 21.3 and the last one done was 1.9. AST is a 43 ALTs 42. CK level is 195. Carbon dioxide is 7. Alcohol level is less than 10. CT of the head is reported as degenerative and nonspecific white matter the changes most typical of a remote white matter ischemia. I personally reviewed the CT and I agree there is no acute or subacute ischemia. There is no bleed or mass effect. Review of Systems Review of system is limited but the pertinent positive and negative as per HPI. Past Medical History Past Medical History: Diabetes Mellitus, GERD/Reflux, Hypertension Additional Past Medical History / Comment(s): Colitis, recurrent diarrhea, hype rglycemia, chronic back pain, recurrent uti's, AMS, possible seizure History of Any Multi-Drug Resistant Organisms: None Reported Past Surgical History: No Surgical Hx Reported Past Anesthesia/Blood Transfusion Reactions: Unable to Obtain Past Psychological History: No Psychological Hx Reported Smoking Status: Former smoker Past Alcohol Use History: None Reported Past Drug Use History: None Reported - Past Family History Mother Family Medical History: Diabetes Mellitus Medications and Allergies Home Medications Medication Instructions Recorded Confirmed Type No Known Home Medications 12/01/22 12/01/22 History Allergies Allergy/AdvReac Type Severity Reaction Status Date / Time amoxicillin AdvReac Diarrhea Verified 10/13/22 10:20 lamotrigine [From Lamictal] AdvReac confusion Verified 12/01/22 11:33 and tremors Physical Examination - Vital Signs Vital Signs: Vital Signs Temp Pulse Resp BP Pulse Ox 12/01/22 16:23 118 H 24 186/99 95 12/01/22 12:15 101 H 18 159/85 94 L 12/01/22 11:10 104 H 18 126/73 95 12/01/22 09:18 112 H 20 133/62 100 12/01/22 08:24 97.3 F L 114 H 22 177/78 96 Intake and Output 12/01/22 12/01/22 12/01/22 06:59 14:59 22:59 Other: Weight 68.039 kg GENERAL: The patient is lying in bed and is very restless thrashing and groaning. NEUROLOGICAL: Very limited since very restless. She is thrashing and groaning. Moving side to side. Not following commands. No facial weakness. Strength could not be assess but moving all extremities above gravity at d ifferent times. Results - Laboratory Findings CBC and BMP: 12/01/22 08:34 12/01/22 08:34 Abnormal Lab Findings: Abnormal Labs 12/01/22 12/01/22 12/01/22 08:24 08:34 08:34 WBC 14.6 H Lymphocytes # (Manual) 6.57 H Carbon Dioxide 7 L* Glucose 219 H POC Glucose (mg/dL) 198 H Plasma Lactic Acid Andi Magnesium 2.5 H AST 43 H ALT 42 H Creatine Kinase 195 H Urine Appearance Ur Leukocyte Esterase Urine WBC Ur Squamous Epith Cells Urine Bacteria Urine Mucus 12/01/22 12/01/22 12/01/22 08:34 12:17 12:21 WBC Lymphocytes # (Manual) Carbon Dioxide Glucose POC Glucose (mg/dL) Plasma Lactic Acid Andi 21.3 H* 4.2 H* Magnesium AST ALT Creatine Kinase Urine Appearance Cloudy H Ur Leukocyte Esterase Moderate H Urine WBC 12 H Ur Squamous Epith Cells 6 H Urine Bacteria Moderate H Urine Mucus Rare H Assessment and Plan Assessment: This is a 77-year-old woman with history of seizures who is not on any antiepileptic drug and has tried different antiepileptic drug in the past but had side effects. She stopped taking her last antiepileptic drug which was his Vimpat about 3 weeks ago because of the side effects which was making her sleepy. Today she presented with multiple seizure-like activity. Has prolonged GTC in ED. Lactic acid on presentation was 21.3, CO2 07. Clinical status epilepticus: Due to not being on any antiepileptic drug. History of seizure and has tried different medication and could not tolerate it because of side effects (tried Keppra, Lamictal (caused rash), Vimpat (made her sleepy), tried Depakote in past and unsure side-effects). She had a prolonged 3 day EEG at [facility] in the past and per her neurologist was reported that she had the focal seizures. Diabetes mellitus Hypertension Chronic back pain History of colitis Plan: She was given Valium 5 mg once by the EMS. Then she was given Ativan 2 mg in the ED. I also asked the ED to give her an additional 1 mg. ED team loaded her with the Vimpat 100 mg once. I started the patient on valproic acid 250mg every 12 hours and if tolerates it will increase to 500mg bid. It seems she tried Valproic acid in past and unsure of side-effects. She did not tolerate Keppra (stanley/behavior issues), Vimpat (sleepy). I ordered a routine EEG. The install and repair technician attempted to perform the study multiple times but the patient is too restless to have the EEG study performed. We'll attempt to obtain records from before Hospital regarding the [facility] day care home EEG recording. The patient's states that he was notified that the is nonepileptic but her neurologist as stated that he received the records and he was notified that was epileptic in nature. Seizure precautions Seizure pads Per the [place] [employer] because of the seizures, to avoid driving for 6 months until seizure-free, avoid heights, avoids swimining unassisted or using heavy machinery. Her was notified that she needs to notify her neurologist prior to discontinuing taken the antiepileptic medication herself so she can be placed on a different antiepileptic medication to avoid further seizures. We'll defer the rest of the medical management to the primary team The plan was discussed with the patient's was at bedside in the ED physician. Thank you for the consultation Time with Patient: Greater than 30
[2022-12-01] MEDS: SODIUM CHLORIDE 0.9% 1,000 ML IV SCH ×2 (19:44→21:25)
[2022-12-01] MEDS: VALPROATE SODIUM 250 MG in SODIUM CHLORIDE 0.9% 100 ML IVPB SCH (20:30)
[2022-12-02] MEDS: LORazepam 2 MG/ML INJ IV PRN ×2 (00:43→04:53)
[2022-12-02] MEDS: SODIUM CHLORIDE 0.9% 1,000 ML IV SCH ×2 (03:37→08:55)
[2022-12-02] MEDS: VALPROATE SODIUM 250 MG in SODIUM CHLORIDE 0.9% 100 ML IVPB SCH ×2 (08:54→20:51)
[2022-12-02 09:12] LABS: Basophils # (A) 0.07 X 10*3/uL (0.00-0.10); Basophils % (A) 0.5 %; Eosinophils # (A) 0.04 X 10*3/uL (0.04-0.35); Eosinophils % (A) 0.3 %; HCT 38.6 % (37.2-46.3); HGB 13.1 d/dL (12.0-15.0); Lymphocytes # (A) 1.51 X 10*3/uL (0.90-5.00); Lymphocytes % (A) 10.3 %; MCH 30.5 pg (27.0-32.0); MCHC 33.9 d/dL (32.0-37.0); Mean Platelet Volume 9.9 FL (9.5-12.2); Monocytes # (A) 1.26 X 10*3/uL (0.20-1.00); Monocytes % (A) 8.6 %; NRBC Per 100 WBC 0 X 10*3/uL (0.00-0.01); Neutrophils # (A) 11.69 X 10*3/uL (1.80-7.70); Platelet Count 334 X 10*3/uL (140-440); RBC 4.29 X 10*6/uL (4.10-5.20); RDW 12.9 % (11.5-14.5); WBC 14.62 X 10*3/uL (4.50-10.00)
[2022-12-02 09:18] LABS: Calcium 9.3 mg/dL (8.7-10.3); Carbon Dioxide 22.6 mmol/L (21.6-31.8); Chloride 100 mmol/L (96-109); Glucose 109 mg/dL (70-110); Potassium 3.8 mmol/L (3.5-5.5); Sodium 135 mmol/L (135-145)
--- NOTE | 2022-12-02 10:21 | P.HPIM ---
History of Present Illness H&P Date: 12/01/22 Chief Complaint: Altered Mental Status 77-year-old female with past medical history of diabetes, seizure disorder who presents to the emergency department for altered mental status. Last known well was around 645 this morning. EMS states that they arrived the patient had a 2 minute seizure. Patient did have incontinence. She was transferred to the hospital without verbal response and had a second seizure episode in route. They provided her with 5 mg of Versed. Patient arrives and is not able to answer questions. Review of her chart demonstrate that she does have seizure history and takes Vimpat and Lamictal. She had a traumatic brain injury a few months ago. History is limited due to patient's current status reported that the patient has had seizures since her head injury. She is supposed to take Lamictal however has not taken it in a month because it caused her to have shakes Workup: White blood cells 14.6K Initial serum glucose is 219, POC glucose is 198, initial plasma lactic acid venous 21.3 and the last one done was 1.9. AST is a 43 ALTs 42. CK level is 195. Carbon dioxide is 7. Alcohol level is less than 10. CT of the head is reported as degenerative and nonspecific white matter the changes most typical of a remote white matter ischemia. There is no bleed or mass effect. Review of Systems REVIEW OF SYSTEMS: CONSTITUTIONAL: No fever, no malaise, no fatigue. HEENT: No recent visual problems or hearing problems. Denied any sore throat. CARDIOVASCULAR: No chest pain, orthopnea, PND, no palpitations, no syncope. PULMONARY: No shortness of breath, no cough, no hemoptysis. GASTROINTESTINAL: No diarrhea, no nausea, no vomiting, no abdominal pain. NEUROLOGICAL: No headaches, no weakness, no numbness. HEMATOLOGICAL: Denies any bleeding or petechiae. GENITOURINARY: Denies any burning micturition, frequency, or urgency. MUSCULOSKELETAL/RHEUMATOLOGICAL: Denies any joint pain, swelling, or any muscle pain. ENDOCRINE: Denies any polyuria or polydipsia. The rest of the 14-point review of systems is negative. Past Medical History Past Medical History: Diabetes Mellitus, GERD/Reflux, Hypertension Additional Past Medical History / Comment(s): Colitis, recurrent diarrhea, hyperglycemia, chronic back pain, recurrent uti's, AMS, possible seizure History of Any Multi-Drug Resistant Organisms: None Reported Past Surgical History: No Surgical Hx Reported Past Anesthesia/Blood Transfusion Reactions: Unable to Obtain Past Psychological History: No Psychological Hx Reported Smoking Status: Former smoker Past Alcohol Use History: None Reported Past Drug Use History: None Reported - Past Family History Mother Family Medical History: Diabetes Mellitus Medications and Allergies Home Medications Medication Instructions Recorded Confirmed Type No Known Home Medications 12/01/22 12/01/22 History Allergies Allergy/AdvReac Type Severity Reaction Status Date / Time amoxicillin AdvReac Diarrhea Verified 10/13/22 10:20 lamotrigine [From Lamictal] AdvReac confusion Verified 12/01/22 11:33 and tremors Physical Exam Vitals: Vital Signs Temp Pulse Resp BP Pulse Ox 12/01/22 12:15 101 H 18 159/85 94 L 12/01/22 11:10 104 H 18 126/73 95 12/01/22 09:18 112 H 20 133/62 100 12/01/22 08:24 97.3 F L 114 H 22 177/78 96 Intake and Output 11/30/22 12/01/22 12/01/22 22:59 06:59 14:59 Other: Weight 68.039 kg PHYSICAL EXAMINATION: GENERAL: The patient is alert and oriented x3, not in any acute distress. Well developed, well nourished. HEENT: Pupils are round and equally reacting to light. EOMI. No scleral icterus. No conjunctival pallor. Normocephalic, atraumatic. No pharyngeal erythema. No thyromegaly. CARDIOVASCULAR: S1 and S2 present. No murmurs, rubs, or gallops. PULMONARY: Chest is clear to auscultation, no wheezing or crackles. ABDOMEN: Soft, nontender, nondistended, normoactive bowel sounds. No palpable organomegaly. MUSCULOSKELETAL: No joint swelling or deformity. EXTREMITIES: No cyanosis, clubbing, or pedal edema. NEUROLOGICAL: Gross neurological examination did not reveal any focal deficits. SKIN: No rashes. Results CBC & Chem 7: 12/02/22 04:57 12/02/22 04:56 Labs: Abnormal Lab Results - Last 24 Hours (Table) 12/01/22 12/01/22 12/01/22 Range/Units 08:24 08:34 08:34 WBC 14.6 H (3.8-10.6) k/uL Lymphocytes # (Manual) 6.57 H (1.0-4.8) k/uL Carbon Dioxide 7 L* (22-30) mmol/L Glucose 219 H (74-99) mg/dL POC Glucose (mg/dL) 198 H (70-110) mg/dL Plasma Lactic Acid Andi (0.7-2.0) mmol/L Magnesium 2.5 H (1.6-2.3) mg/dL AST 43 H (14-36) U/L ALT 42 H (4-34) U/L Creatine Kinase 195 H (30-135) U/L Urine Appearance (Clear) Ur Leukocyte Esterase (Negative) Urine WBC (0-5) /hpf Ur Squamous Epith Cells (0-4) /hpf Urine Bacteria (None) /hpf Urine Mucus (None) /hpf 12/01/22 12/01/22 12/01/22 Range/Units 08:34 12:17 12:21 WBC (3.8-10.6) k/uL Lymphocytes # (Manual) (1.0-4.8) k/uL Carbon Dioxide (22-30) mmol/L Glucose (74-99) mg/dL POC Glucose (mg/dL) (70-110) mg/dL Plasma Lactic Acid Andi 21.3 H* 4.2 H* (0.7-2.0) mmol/L Magnesium (1.6-2.3) mg/dL AST (14-36) U/L ALT (4-34) U/L Creatine Kinase (30-135) U/L Urine Appearance Cloudy H (Clear) Ur Leukocyte Esterase Moderate H (Negative) Urine WBC 12 H (0-5) /hpf Ur Squamous Epith Cells 6 H (0-4) /hpf Urine Bacteria Moderate H (None) /hpf Urine Mucus Rare H (None) /hpf Assessment and Plan Assessment: 1. Breakthrough seizures; noncompliance - Patient is currently not on any anti-epileptic drugs; reportedly patient has tried different antiepileptic medications in the past and has been able to tolerate them due to side effects; patient stopped taking Vimpat about 3 weeks ago because it was making her sleepy - Patient received Valium in ED followed by Ativan - Patient was loaded with Vimpat 100 mg 1 in ED per neurology recommendations; neurology recommended patient to be started on valproic acid 50 mg every 12 hours with plans to trend up to 500 mg twice a day if patient is able to tolerate; patient has reported no changes with Her in the past -- EEG is ordered - Patient remains on seizure precautions 2. Lactic acidosis; likely is related to intractable seizures; we will monitor lactic acid levels 3. UTI; urine is positive for moderate leukocyte esterase and bacteria; white blood count is elevated at 14.6 - We will plan to treat patient with Rocephin 1 g IV daily; monitor CBC; further recommendations pending clinical course 4. Hypertension; patient is currently not on any antihypertensive therapy; we will monitor blood pressure closely and make recommendations 5 to discharge 5. Diabetes mellitus; not on any therapy; blood glucose is stable at 109 DVT prophylaxis; SCDs CODE STATUS; full code
--- NOTE | 2022-12-02 10:40 | P.PN ---
Subjective Progress Note Date: 12/02/22 Patient seen at bedside and according to patient's nurse no further seizure-like activity since the patient has been on the floor. Upon seeing the patient she seems more relaxed today compared to yesterday. She has 4. restraint because of her severe agitation yesterday. Today in the ED she received Ativan after I personally saw her and the reason for that is that she was agitated per the ED nurse. Objective - Vital Signs Vital signs: Vital Signs Temp 99.4 F 12/02/22 07:58 Pulse 122 H 12/02/22 07:58 Resp 18 12/02/22 07:58 BP 148/84 12/02/22 07:58 Pulse Ox 98 12/02/22 07:58 FiO2 Intake & Output 12/01/22 12/02/22 12/02/22 18:59 06:59 18:59 Intake Total 1300 Output Total 1000 900 Balance -1000 400 Weight 68.039 kg 68.039 kg Intake: Intake, IV Titration 1300 Amount Sodium Chloride 0.9% 1, 1300 000 ml @ 130 mls/hr IV . Q7H42M [facility] Rx#:[id number] Output: Urine 1000 900 - Exam Neuro: Limited because of her condition Patient is a moderately to severely drowsy and is awake about briefly to voice. She is oriented to self, year. She is able to follow some simple commands such as showing thumbs up wiggling the toes. Pupils are round equal and reactive to light. No facial weakness. No dysarthri a. Some of the workup during his hospital visit consisted of: Heart rate is in the 100-110's. She is afebrile. Pulse ox is 96% room air. White blood cells 14.6K Initial serum glucose is 219, POC glucose is 198, initial plasma lactic acid venous 21.3 and the last one done was 1.9. AST is a 43 ALTs 42. CK level is 195. Carbon dioxide is 7. Alcohol level is less than 10. CT of the head is reported as degenerative and nonspecific white matter the changes most typical of a remote white matter ischemia. I personally reviewed the CT and I agree there is no acute or subacute ischemia. There is no bleed or mass effect. - Labs CBC & Chem 7: 12/02/22 04:57 12/02/22 04:56 Labs: Abnormal Lab Results - Last 24 Hours (Table) 12/01/22 12/01/22 12/02/22 Range/Units 12:17 12:21 04:56 WBC (4.50-10.00) X 10*3/uL Neutrophils # (1.80-7.70) X 10*3/uL Monocytes # (0.20-1.00) X 10*3/uL Anion Gap 12.40 H (4.00-12.00) mmol/L BUN 6.0 L (9.0-27.0) mg/dL BUN/Creatinine Ratio 10.00 L (12.00-20.00) Ratio Plasma Lactic Acid Andi 4.2 H* (0.7-2.0) mmol/L Urine Appearance Cloudy H (Clear) Ur Leukocyte Esterase Moderate H (Negative) Urine WBC 12 H (0-5) /hpf Ur Squamous Epith Cells 6 H (0-4) /hpf Urine Bacteria Moderate H (None) /hpf Urine Mucus Rare H (None) /hpf 12/02/22 Range/Units 04:57 WBC 14.62 H (4.50-10.00) X 10*3/uL Neutrophils # 11.69 H (1.80-7.70) X 10*3/uL Monocytes # 1.26 H (0.20-1.00) X 10*3/uL Anion Gap (4.00-12.00) mmol/L BUN (9.0-27.0) mg/dL BUN/Creatinine Ratio (12.00-20.00) Ratio Plasma Lactic Acid Andi (0.7-2.0) mmol/L Urine Appearance (Clear) Ur Leukocyte Esterase (Negative) Urine WBC (0-5) /hpf Ur Squamous Epith Cells (0-4) /hpf Urine Bacteria (None) /hpf Urine Mucus (None) /hpf Assessment and Plan Assessment: This is a 77-year-old woman with history of seizures who is not on any anti epileptic drug and has tried different antiepileptic drug in the past but had side effects. She stopped taking her last antiepileptic drug which was his Vimpat about 3 weeks ago because of the side effects which was making her sleepy. On 12/01/2022 she presented with multiple seizure-like activity. Has prolonged GTC in ED. Lactic acid on presentation was 21.3, CO2 07. Clinical status epilepticus: Due to not being on any antiepileptic drug--resolved History of seizure and has tried different medication and could not tolerate it because of side effects (tried Keppra, Lamictal (caused rash), Vimpat (made her sleepy), tried Depakote in past and unsure side-effects). She had a prolonged 3 day EEG at [facility] in the past and per her neurologist was reported that she had the focal seizures. Diabetes mellitus Hypertension Chronic back pain History of colitis Plan: ED team loaded her with the Vimpat 100 mg once on 12/01 and I gave her another 100mg. I started the patient on valproic acid 250mg every 12 hours and if tolerates it will increase it down the line to 500mg bid but will not do it quickly since cannot tolerate high doses with other medication. It seems she tried Valproic acid in past and unsure of side-effects. She did not tolerate K eppra (stanley/behavior issues), Vimpat (sleepy). On 12/01/2022 the termite technician attempted to perform the EEG but the patient was too agitated and restless so had to be aborted. Clinically she is doing better. I'll not pursue an EEG since patient is clinically doing better and she has known history of seizure. But if the patient continues to have more seizure- like activity and considerable prolonged EEG. We'll attempt to obtain records from [facility] regarding the 3 day termite technician EEG recording. The patient's states that he was notified that the is nonepileptic but her neurologist as stated that he received the records and he was notified that was epileptic in nature. Seizure precautions Seizure pads Per the [place] DMV because of the seizures, to avoid driving for 6 months until seizure-free, avoid heights, avoids swimining unassisted or using heavy machinery. Her was notified that she needs to notify her neurologist prior to discontinuing taken the antiepileptic medication herself so she can be placed on a different antiepileptic medication to avoid further seizures. We'll defer the rest of the medical management to the primary team Upon discharge patient is to follow-up with her neurologist as outpatient within 1-2 weeks (Dr. Olsen). The plan was discussed with the patient's nurse. Time with Patient: Less than 30
[2022-12-02 23:46] LABS: Glucose,Whole Blood 90 mg/dL (70-110)
[2022-12-03] MEDS: SODIUM CHLORIDE 0.9% 1,000 ML IV SCH ×4 (00:37→16:08)
[2022-12-03 07:22] LABS: Glucose,Whole Blood 75 mg/dL (70-110)
[2022-12-03] MEDS: VALPROATE SODIUM 250 MG in SODIUM CHLORIDE 0.9% 100 ML IVPB SCH ×2 (08:30→20:12)
--- NOTE | 2022-12-03 08:44 | P.PN ---
Subjective Progress Note Date: 12/02/22 77-year-old female with past medical history of diabetes, seizure disorder who presents to the emergency department for altered mental status. Last known well was around 645 this morning. EMS states that they arrived the patient had a 2 minute seizure. Patient did have incontinence. She was transferred to the hospital without verbal response and had a second seizure episode in route. They provided her with 5 mg of Versed. Patient arrives and is not able to answer questions. Review of her chart demonstrate that she does have seizure history and takes Vimpat and Lamictal. She had a traumatic brain injury a few months ago. History is limited due to patient's current status reported that the patient has had seizures since her head injury. She is supposed to take Lamictal however has not taken it in a month because it caused her to have shakes Workup: White blood cells 14.6K Initial serum glucose is 219, POC glucose is 198, initial plasma lactic acid venous 21.3 and the last one done was 1.9. AST is a 43 ALTs 42. CK level is 195. Carbon dioxide is 7. Alcohol level is less than 10. CT of the head is reported as degenerative and nonspecific white matter the changes most typical of a remote white matter ischemia. There is no bleed or mass effect. Objective - Vital Signs Vital signs: Vital Signs Temp 99.4 F 12/02/22 07:58 Pulse 122 H 12/02/22 07:58 Resp 18 12/02/22 07:58 BP 148/84 12/02/22 07:58 Pulse Ox 98 12/02/22 07:58 FiO2 Intake & Output 12/01/22 12/02/22 12/02/22 18:59 06:59 18:59 Intake Total 1300 Output Total 1000 900 Balance -1000 400 Weight 68.039 kg 68.039 kg Intake: Intake, IV Titration 1300 Amount Sodium Chloride 0.9% 1, 1300 000 ml @ 130 mls/hr IV . Q7H42M [facility] Rx#:[id number] Output: Urine 1000 900 - Exam GENERAL: The patient is alert and oriented x3, not in any acute distress. Well developed, well nourished. HEENT: Pupils are round and equally reacting to light. EOMI. No scleral icterus. No conjunctival pallor. Normocephalic, atraumatic. No pharyngeal erythema. No thyromegaly. CARDIOVASCULAR: S1 and S2 present. No murmurs, rubs, or gallops. PULMONARY: Chest is clear to auscultation, no wheezing or crackles. ABDOMEN: Soft, nontender, nondistended, normoactive bowel sounds. No palpable organomegaly. MUSCULOSKELETAL: No joint swelling or deformity. EXTREMITIES: No cyanosis, clubbing, or pedal edema. NEUROLOGICAL: Gross neurological examination did not reveal any focal deficits. SKIN: No rashes. - Labs CBC & Chem 7: 12/02/22 04:57 12/02/22 04:56 Labs: Abnormal Lab Results - Last 24 Hours (Table) 12/01/22 12/01/22 12/02/22 Range/Units 12:17 12:21 04:56 WBC (4.50-10.00) X 10*3/uL Neutrophils # (1.80-7.70) X 10*3/uL Monocytes # (0.20-1.00) X 10*3/uL Anion Gap 12.40 H (4.00-12.00) mmol/L BUN 6.0 L (9.0-27.0) mg/dL BUN/Creatinine Ratio 10.00 L (12.00-20.00) Ratio Plasma Lactic Acid Andi 4.2 H* (0.7-2.0) mmol/L Urine Appearance Cloudy H (Clear) Ur Leukocyte Esterase Moderate H (Negative) Urine WBC 12 H (0-5) /hpf Ur Squamous Epith Cells 6 H (0-4) /hpf Urine Bacteria Moderate H (None) /hpf Urine Mucus Rare H (None) /hpf 12/02/22 Range/Units 04:57 WBC 14.62 H (4.50-10.00) X 10*3/uL Neutrophils # 11.69 H (1.80-7.70) X 10*3/uL Monocytes # 1.26 H (0.20-1.00) X 10*3/uL Anion Gap (4.00-12.00) mmol/L BUN (9.0-27.0) mg/dL BUN/Creatinine Ratio (12.00-20.00) Ratio Plasma Lactic Acid Andi (0.7-2.0) mmol/L Urine Appearance (Clear) Ur Leukocyte Esterase (Negative) Urine WBC (0-5) /hpf Ur Squamous Epith Cells (0-4) /hpf Urine Bacteria (None) /hpf Urine Mucus (None) /hpf Assessment and Plan Assessment: 1. Breakthrough seizures; noncompliance - Patient is currently not on any anti-epileptic drugs; reportedly patient has tried different antiepileptic medications in the past and has been able to tolerate them due to side effects; patient stopped taking Vimpat about 3 weeks ago because it was making her sleepy - Patient received Valium in ED followed by Ativan - Patient was loaded with Vimpat 100 mg 1 in ED per neurology recommendations; neurology recommended patient to be started on valproic acid 50 mg every 12 hours with plans to trend up to 500 mg twice a day if patient is able to tolerate; patient has reported no changes with Her in the past -- EEG is ordered - Patient remains on seizure precautions 2. Lactic acidosis; likely is related to intractable seizures; we will monitor lactic acid levels 3. UTI; urine is positive for moderate leukocyte esterase and bacteria; white blood count is elevated at 14.6 - We will plan to treat patient with Rocephin 1 g IV daily; monitor CBC; further recommendations pending clinical course 4. Hypertension; patient is currently not on any antihypertensive therapy; we will monitor blood pressure closely and make recommendations 5 to discharge 5. Diabetes mellitus; not on any therapy; blood glucose is stable at 109 DVT prophylaxis; SCDs CODE STATUS; full code
--- NOTE | 2022-12-03 10:25 | P.PN ---
Subjective Progress Note Date: 12/03/22 The patient seen at bedside and she feels she is doing much better. The nurse is no further seizure-like activity. Objective - Vital Signs Vital signs: Vital Signs Temp 98.5 F 12/03/22 07:16 Pulse 83 12/03/22 07:16 Resp 18 12/03/22 07:16 BP 166/89 12/03/22 07:16 Pulse Ox 95 12/03/22 07:16 FiO2 Intake & Output 12/02/22 12/03/22 12/03/22 18:59 06:59 18:59 Intake Total 60 2250 Output Total 900 800 Balance -840 1450 Intake: Intake, IV Titration 1660 Amount Sodium Chloride 0.9% 1, 1560 000 ml @ 130 mls/hr IV . Q7H42M [facility] Rx#:[id number] Valproate Sodium 250 mg 100 In Sodium Chloride 0.9% 100 ml @ 100 mls/hr IVPB Q12HR [facility] Rx#:[id number] Oral 60 590 Output: Urine 900 800 Other: Voiding Method Indwelling Catheter Indwelling Catheter - Exam Neuro: Patient is awake alert oriented to self place and time. She is following commands. No aphasia. Visual june are full to confrontation. No facial weakness No dysarthria. Order is the strength is able to lift bilateral upper extremity above gravity but is limited because of bilateral shoulder pain. And is able to left bilateral lower extremity. Some of the workup during his hospital visit consisted of: Heart rate is in the 100-110's. She is afebrile. Pulse ox is 96% room air. White blood cells 14.6K Initial serum glucose is 219, POC glucose is 198, initial plasma lactic acid venous 21.3 and the last one done was 1.9. AST is a 43 ALTs 42. CK level is 195. Carbon dioxide is 7. Alcohol level is less than 10. CT of the head is reported as degenerative and nonspecific white matter the changes most typical of a remote white matter ischemia. I personally reviewed the CT and I agree there is no acute or subacute ischemia. There is no bleed or mass effect. - Labs CBC & Chem 7: 12/02/22 04:57 12/02/22 04:56 Assessment and Plan Assessment: This is a 77-year-old woman with history of seizures who is not on any antiepileptic drug and has tried different antiepileptic drug in the past but had side effects. She stopped taking her last antiepileptic drug which was his Vimpat about 3 weeks ago because of the side effects which was making her sleepy. On 12/01/2022 she presented with multiple seizure-like activity. Has prolonged GTC in ED. Lactic acid on presentation was 21.3, CO2 07. Clinical status epilepticus: Due to not being on any antiepileptic drug--resolved History of seizure and has tried different medication and could not tolerate it because of side effects (tried Keppra, Lamictal (caused rash), Vimpat (made her sleepy), tried Depakote in past and unsure side-effects). She had a prolonged 3 day EEG at [facility] in the past and per her neurologist was reported that she had the focal seizures. Diabetes mellitus Hypertension Chronic back pain History of colitis Plan: I ordered bilateral shoulder x-ray to rule out any dislocation that can happen procedures especially that she's having pain. ED team loaded her with the Vimpat 100 mg once on 12/01 and I gave her another 100mg. I started the patient on valproic acid 250mg every 12 hours and if desiree ates it will increase it down the line to 500mg bid but will not do it quickly since cannot tolerate high doses with other medication. It seems she tried Valproic acid in past and unsure of side-effects. She did not tolerate Keppra (stanley/behavior issues), Vimpat (sleepy). On 12/01/2022 the master hearth technician attempted to perform the EEG but the patient was too agitated and restless so had to be aborted. Clinically she is doing better. I'll not pursue an EEG since patient is clinically doing better and she has known history of seizure. But if the patient continues to have more seizure- like activity and considerable prolonged EEG. We'll attempt to obtain records from [facility] regarding the 3 day alf EEG recording. The patient's states that he was notified that the is nonepileptic but her neurologist as stated that he received the records and he was notified that was epileptic in nature. Seizure precautions Seizure pads Per the [facility] because of the seizures, to avoid driving for 6 months until seizure-free, avoid heights, avoids swimining unassisted or using heavy machinery. Her was notified that she needs to notify her neurologist prior to discontinuing taken the antiepileptic medication herself so she can be placed on a different antiepileptic medication to avoid further seizures. We'll defer the rest of the medical management to the primary team Upon discharge patient is to follow-up with her neurologist as outpatient within 1-2 weeks (Dr. Olsen). The plan was discussed with the patient's nurse. Dr. Pandya will start neurology service tomorrow A.M. Time with Patient: Less than 30
[2022-12-03 12:10] LABS: Glucose,Whole Blood 96 mg/dL (70-110)
--- NOTE | 2022-12-03 12:47 | XR ---
EXAMINATION TYPE: XR shoulder complete BILAT DATE OF EXAM: 12/03/2022 12:38 PM INDICATION: Patient age:Female; 77 years old; Reason for study: pain. r/o dislocation because of seizures; COMPARISON: None TECHNIQUE: The bilateral shoulder was examined in AP, internally rotated and scapular Y projections. FINDINGS: No evidence of acute osseous pathology, joint dislocation, or soft tissue swelling. The remaining por tions of the visualized chest are unremarkable. IMPRESSION: 1. No acute osseous pathology. 2. No evidence of dislocation either shoulder
[2022-12-03 13:47] LABS: Blood Urea Nitrogen 6.9 mg/dL (9.0-27.0); Calcium 8.9 mg/dL (8.7-10.3); Carbon Dioxide 17.4 mmol/L (21.6-31.8); Chloride 105 mmol/L (96-109); Glucose 73 mg/dL (70-110); Potassium 3.8 mmol/L (3.5-5.5); Sodium 139 mmol/L (135-145)
[2022-12-03 13:59] LABS: Basophils # (A) 0.09 X 10*3/uL (0.00-0.10); Basophils % (A) 0.8 %; Eosinophils # (A) 0.11 X 10*3/uL (0.04-0.35); HCT 41.1 % (37.2-46.3); HGB 13.5 d/dL (12.0-15.0); Lymphocytes # (A) 1.63 X 10*3/uL (0.90-5.00); Lymphocytes % (A) 14.3 %; MCH 30.3 pg (27.0-32.0); MCHC 32.8 d/dL (32.0-37.0); MCV 92.2 FL (80.0-97.0); Mean Platelet Volume 10.1 FL (9.5-12.2); Monocytes # (A) 0.88 X 10*3/uL (0.20-1.00); Monocytes % (A) 7.7 %; NRBC Per 100 WBC 0 X 10*3/uL (0.00-0.01); Neutrophils # (A) 8.61 X 10*3/uL (1.80-7.70); Neutrophils % (A) 75.8 %; Platelet Count 317 X 10*3/uL (140-440); RBC 4.46 X 10*6/uL (4.10-5.20); RDW 12.9 % (11.5-14.5); WBC 11.37 X 10*3/uL (4.50-10.00)
[2022-12-03 17:05] LABS: Glucose,Whole Blood 81 mg/dL (70-110)
--- NOTE | 2022-12-03 18:58 | P.PN ---
Subjective Progress Note Date: 12/03/22 77-year-old female with past medical history of diabetes, seizure disorder who presents to the emergency department for altered mental status. Last known well was around 645 this morning. EMS states that they arrived the patient had a 2 minute seizure. Patient did have incontinence. She was transferred to the hospital without verbal response and had a second seizure episode in route. They provided her with 5 mg of Versed. Patient arrives and is not able to answer questions. Review of her chart demonstrate that she does have seizure history and takes Vimpat and Lamictal. She had a traumatic brain injury a few months ago. History is limited due to patient's current status reported that the patient has had seizures since her head injury. She is supposed to take Lamictal however has not taken it in a month because it caused her to have shakes Workup: White blood cells 14.6K Initial serum glucose is 219, POC glucose is 198, initial plasma lactic acid venous 21.3 and the last one done was 1.9. AST is a 43 ALTs 42. CK level is 195. Carbon dioxide is 7. Alcohol level is less than 10. CT of the head is reported as degenerative and nonspecific white matter the changes most typical of a remote white matter ischemia. There is no bleed or mass effect. 12/03/2022 Patient is seen and evaluated sitting up in bed; patient's is at bedside; patient denies any specific complaints with valproic acid; reports and proceed medications cause her to lose hair and if so happens she will stop taking medication; patient and has been consult to continue and inform physician recommended discontinuing the medication -- Lab review shows WBC of 11.37, hemoglobin of 13.5 and platelet count of 317, sodium 139, potassium 3.8, BUN/creatinine 6.9/0.6 - Patient remains on IV Rocephin for UTI and white blood count is trending down; await urine culture results Objective - Vital Signs Vital signs: Vital Signs Temp 98.5 F 12/03/22 07:16 Pulse 83 12/03/22 07:16 Resp 18 12/03/22 07:16 BP 166/89 12/03/22 07:16 Pulse Ox 95 12/03/22 07:16 FiO2 Intake & Output 12/02/22 12/03/22 12/03/22 18:59 06:59 18:59 Intake Total 60 2250 Output Total 900 800 Balance -840 1450 Intake: Intake, IV Titration 1660 Amount Sodium Chloride 0.9% 1, 1560 000 ml @ 130 mls/hr IV . Q7H42M [facility] Rx#:[id number] Valproate Sodium 250 mg 100 In Sodium Chloride 0.9% 100 ml @ 100 mls/hr IVPB Q12HR [facility] Rx#:[id number] Oral 60 590 Output: Urine 900 800 Other: Voiding Method Indwelling Catheter Indwelling Catheter - Exam GENERAL: The patient is alert and oriented x3, not in any acute distress. Well developed, well nourished. HEENT: Pupils are round and equally reacting to light. EOMI. No scleral icterus. No conjunctival pallor. Normocephalic, atraumatic. No pharyngeal erythema. No thyromegaly. CARDIOVASCULAR: S1 and S2 present. No murmurs, rubs, or gallops. PULMONARY: Chest is clear to auscultation, no wheezing or crackles. ABDOMEN: Soft, nontender, nondistended, normoactive bowel sounds. No palpable organomegaly. MUSCULOSKELETAL: No joint swelling or deformity. EXTREMITIES: No cyanosis, clubbing, or pedal edema. NEUROLOGICAL: Gross neurological examination did not reveal any focal deficits. SKIN: No rashes. - Labs CBC & Chem 7: 12/03/22 08:24 12/03/22 08:24 Labs: Abnormal Lab Results - Last 24 Hours (Table) 12/02/22 12/02/22 Range/Units 04:56 04:57 WBC 14.62 H (4.50-10.00) X 10*3/uL Neutrophils # 11.69 H (1.80-7.70) X 10*3/uL Monocytes # 1.26 H (0.20-1.00) X 10*3/uL Anion Gap 12.40 H (4.00-12.00) mmol/L BUN 6.0 L (9.0-27.0) mg/dL BUN/Creatinine Ratio 10.00 L (12.00-20.00) Ratio Assessment and Plan Assessment: 1. Breakthrough seizures; noncompliance - Patient is currently not on any anti-epileptic drugs; reportedly patient has tried different antiepileptic medications in the past and has been able to tolerate them due to side effects; patient stopped taking Vimpat about 3 weeks ago because it was making her sleepy - Patient received Valium in ED followed by Ativan - Patient was loaded with Vimpat 100 mg 1 in ED per neurology recommendations; neurology recommended patient to be started on valproic acid 50 mg every 12 hours with plans to trend up to 500 mg twice a day if patient is able to tolerate; patient has reported no changes with Her in the past -- EEG is ordered - Patient remains on seizure precautions 2. Lactic acidosis; likely is related to intractable seizures; we will monitor lactic acid levels 3. UTI; urine is positive for moderate leukocyte esterase and bacteria; white blood count is elevated at 14.6 - We will plan to treat patient with Rocephin 1 g IV daily; monitor CBC; further recommendations pending clinical course 4. Hypertension; patient is currently not on any antihypertensive therapy; we will monitor blood pressure closely and make recommendations 5 to discharge 5. Diabetes mellitus; not on any therapy; blood glucose is stable at 109 DVT prophylaxis; SCDs CODE STATUS; full code
[2022-12-03 20:14] LABS: Glucose,Whole Blood 126 mg/dL (70-110)
[2022-12-04] MEDS: SODIUM CHLORIDE 0.9% 1,000 ML IV SCH ×2 (04:14→08:40)
[2022-12-04 07:27] LABS: Glucose,Whole Blood 101 mg/dL (70-110)
[2022-12-04 07:44] VITALS: RESP 17
[2022-12-04] MEDS: VALPROATE SODIUM 250 MG in SODIUM CHLORIDE 0.9% 100 ML IVPB SCH (08:38)
[2022-12-04 11:23] LABS: Glucose,Whole Blood 110 mg/dL (70-110)
[2022-12-04 12:12] VITALS: BP 180/84; PULSE 84; TEMP 97.7
--- NOTE | 2022-12-04 19:39 | P.DS ---
Providers Date of admission: 12/01/22 11:02 Expected date of discharge: 12/04/22 Attending physician: Danish Yung Consults: 12/01/22 11:00 Consult Physician Urgent Consulting Provider: Venkatesh De La Cruz Consult Reason/Comments: seizure, hx seizure disorder Do you want consulting provider notified?: Yes [facility] Course: Final diagnosis -Breakthrough seizures secondary to noncompliance, patient has not been taking her medications due to significant side effects -Lactic acidosis; likely is related to intractable seizures -UTI present on admission -Hypertension -Diabetes mellitus; not on any therapy -DVT prophylaxis - full code Discharge disposition Patient is being discharged in a stable condition with guarded prognosis to home. Patient will follow-up with Dr. Thomas in the outpatient setting upon discharge. Patient is to continue with Depakote 250 mg twice daily and close outpatient follow-up with her neurologist Dr. Olsen. Patient will also continue Ceftin 500 mg twice daily for the next 3 days to complete the course. Total time taken is greater than 35 minutes. Hospital course This is a 77-year-old female who was recently admitted with seizure-like activity and breakthrough seizures secondary to noncompliance. Patient evaluated by neurology restarted on Depakote 250 mg twice daily strongly recommending outpatient follow-up with neurologist this week and increase medications as tolerated. Patient has been noncompliant with medications secondary to significant side effects that she has been having. Patient to f ollow-up with Dr. Olsen this week. Patient with mild acute urinary tract infection, present on admission maintained on ceftriaxone and will continue oral Ceftin for 3 days on discharge. Patient instructed to follow-up with primary care provider. Currently no reports of chest pain, shortness of breath, or palpitations. Patient is afebrile. No reports of nausea or vomiting and patient is tolerating diet. Patient will be discharged home. Guarded prognosis and high risk for readmissions given noncompliance to medications and comorbidities. Physical exam: Gen: This is a 77-year-old female who is awake, alert and oriented 2-3, well- developed, well-nourished HEENT: Head is atraumatic, normocephalic. Pupils equal, round. Sclerae is anicteric. NECK: Supple. No JVD. No lymphadenopathy. No thyromegaly. LUNGS: Clear to auscultation. No wheezes or rhonchi. No intercostal retractions. HEART: Regular rate and rhythm. No murmur. ABDOMEN: Soft. Bowel sounds are present. No masses. No tenderness. EXTREMITIES: No pedal edema. No calf tenderness. NEUROLOGICAL: Patient is awake, alert and oriented x2-3. Cranial nerves 2 through 12 are grossly intact. Please refer to medication reconciliation sheet for a list of medications. The impression and plan of care has been dictated by Neris Parsons, Nurse Practitioner as directed. Dr. Dilshad MD I have performed a history and examination and MDM of this patient, discussed the same with the dictator, and agree with the dictator's assessment and plan as written ,documented as a scribe. Based on total visit time, I have performed more than 50% of the visit. Patient Condition at Discharge: Fair Plan - Discharge Summary Discharge Rx Participant: No New Discharge Prescriptions: New Divalproex [Depakote] 250 mg PO BID #60 tab cefUROXime axetiL [Ceftin] 500 mg PO BID 3 Days #6 tab Discharge Medication List Divalproex [Depakote] 250 mg PO BID #60 tab 12/04/22 [Rx] cefUROXime axetiL [Ceftin] 500 mg PO BID 3 Days #6 tab 12/04/22 [Rx] Follow up Appointment(s)/Referral(s): Ankush Thomas MD [Primary Care Provider] - 12/12/22 11:45 am Betito Olsen DO [STAFF PHYSICIAN] - 1 Week (The office is closed please call and make follow up appointment.) Patient Instructions/Handouts: Seizure/Epilepsy Discharge Instructions & Follow-Up, Cefuroxime (By mouth), Divalproex (By mouth) Activity/Diet/Wound Care/Special Instructions: Activity Limited until follow-up Follow-up with primary care provider Follow-up neurology this week Continue Depakote 250 mg twice daily and discuss with neurology about advancing slowly Continue antibiotics for 3 days to complete a course Discharge Disposition: HOME SELF-CARE
== END 2022-12-04 16:29 | disposition home or self-care (01) ==
LOC: EC 08:21 → 5NMEDONC 11:02
PROVIDERS: ADMIT Hospitalist; ATTEND Hospitalist
DX: G40.909 Epilepsy, unspecified, not intractable, without status epilepticus (principal); Z91.128 Patient's intentional underdosing of medication regimen for other reason; E87.20 Acidosis, unspecified; N39.0 Urinary tract infection, site not specified; I10 Essential (primary) hypertension; E11.9 Type 2 diabetes mellitus without complications; K21.9 Gastro-esophageal reflux disease without esophagitis; G89.29 Other chronic pain; M54.9 Dorsalgia, unspecified; Z87.820 Personal history of traumatic brain injury; Z87.19 Personal history of other diseases of the digestive system; Z87.440 Personal history of urinary (tract) infections; Z87.891 Personal history of nicotine dependence; Z83.3 Family history of diabetes mellitus; Z88.0 Allergy status to penicillin; Z88.8 Allergy status to other drugs, medicaments and biological substances
CPT/HCPCS: 96376 ×2; 96361 ×4; 96365 ×2; 96366 ×2; 96375; 99285; 36415; 93005; 97162; 97535; 97166; 80053; 80048 ×2; 80175; 82550; 83605; 83735; 85025 ×3; 81001; 73030; 70450; G0378 ×4; G0480; J2060 ×2; J0696 ×3; C9254; 80320

== ENCOUNTER 2023-02-11 11:36 | Inpatient (IN) | payer MEDICARE ==
--- NOTE | 2023-02-11 13:07 | CT ---
EXAMINATION TYPE: CT brain wo con DATE OF EXAM: 02/11/2023 COMPARISON: 12/01/2022 HISTORY: AMS CT DLP: 1130.6 mGycm Automated exposure control for dose reduction was used. FINDINGS: Mild to moderate generalized degenerative change with hypoattenuation in the white matter most typica l remote white matter change. No evidence of midline shift or mass effect. No acute hemorrhage. Craniocervical junction maintained. Osseous structures intact. IMPRESSION: DEGENERATIVE CHANGE AND EVIDENCE OF REMOTE ISCHEMIA WITH NO EVIDENCE OF ACUTE HEMORRHAGE. CORRELATE W ITH MRI CLINICALLY WARRANTED.
[2023-02-11 13:13] LABS: Lactic Acid, Venous 1.5 mmol/L (0.7-2.0)
[2023-02-11 13:14] LABS: ALT 45 U/L (4-34); AST 46 U/L (14-36); African American GFR (CKD) >90 (>60 ml/min/1.73 sqM); Albumin 4.7 g/dL (3.5-5.0); Alkaline Phosphatase 124 U/L (38-126); Anion Gap 9 mmol/L; Blood Urea Nitrogen 11 mg/dL (7-17); Calcium 9.8 mg/dL (8.4-10.2); Carbon Dioxide 25 mmol/L (22-30); Chloride 104 mmol/L (98-107); Glucose 100 mg/dL (74-99); Magnesium 2.2 mg/dL (1.6-2.3); Non-African American GFR(CKD) 85 (>60 ml/min/1.73 sqM); Potassium 4.3 mmol/L (3.5-5.1); Sodium 138 mmol/L (137-145); Total Bilirubin 0.8 mg/dL (0.2-1.3); Total Protein 7.9 g/dL (6.3-8.2)
[2023-02-11 13:31] LABS: Basophils % (A) 0 %; Eosinophils % (A) 0 %; HCT 39.9 % (34.0-46.0); HGB 13.4 gm/dL (11.4-16.0); Lymphocytes # (A) 1.9 k/uL (1.0-4.8); Lymphocytes % (A) 18 %; MCH 30.2 pg (25.0-35.0); MCHC 33.7 g/dL (31.0-37.0); MCV 89.6 fL (80.0-100.0); Mean Platelet Volume 7.5; Monocytes # (A) 0.5 k/uL (0-1.0); Monocytes % (A) 5 %; Neutrophils # (A) 8.1 k/uL (1.3-7.7); Neutrophils % (A) 76 %; Platelet Count 303 k/uL (150-450); RBC 4.45 m/uL (3.80-5.40); WBC 10.7 k/uL (3.8-10.6)
[2023-02-11] MEDS ORDERED: LORazepam 2 MG/ML INJ IV STA (13:47)
--- NOTE | 2023-02-11 14:05 | ED ---
General Adult HPI - General Chief complaint: Altered Mental Status Stated complaint: AMS Time Seen by Provider: 02/11/23 12:06 Source: patient Mode of arrival: ambulatory Limitations: altered mental status - History of Present Illness Initial comments: Dictation was produced using [employer] dictation software. please excuse any grammatical, word or spelling errors. Chief Complaint: 77-year-old female presents emergency department for altered mental status History of Present Illness: 77-year-old female she allegedly has questionable history of seizures. Patient had a colitis episode this morning. Patient seemed very altered and was escorted to the bathroom with assistance by family member. She had a bout of diarrhea. She's had similar issue like this in the past but not as severe. There was concern that patient had a seizure. She had an EEG. Patient was prescribed seizure medications. Family member at the bedside reports that patient was in her usual state of health all day yesterday. The ROS documented in this emergency department record has been reviewed and confirmed by me. Those systems with pertinent positive or negative responses have been documented in the HPI. All other systems are other negative and/or noncontributory. - Related Data Home Medications Medication Instructions Recorded Confirmed OXcarbazepine [Trileptal] 150 mg PO BID 02/11/23 02/11/23 Allergies Allergy/AdvReac Type Severity Reaction Status Date / Time amoxicillin AdvReac Diarrhea Verified 02/11/23 15:27 lamotrigine [From Lamictal] AdvReac confusion Verified 02/11/23 15:27 and tremors Review of Systems ROS Statement: Those systems with pertinent positive or pertinent negative responses have been documented in the HPI. ROS Other: All systems not noted in ROS Statement are negative. Past Medical History Past Medical History: Diabetes Mellitus, GERD/Reflux, Hypertension Additional Past Medical History / Comment(s): Colitis, recurrent diarrhea, hyperglycemia, chronic back pain, recurrent uti's, AMS, possible seizure History of Any Multi-Drug Resistant Organisms: None Reported Past Surgical History: No Surgical Hx Reported Past Anesthesia/Blood Transfusion Reactions: Unable to Obtain Past Psychological History: No Psychological Hx Reported Smoking Status: Former smoker Past Alcohol Use History: None Reported Past Drug Use History: None Reported - Past Family History Mother Family Medical History: Diabetes Mellitus General Exam - General Exam Comments Initial Comments: PHYSICAL EXAM: General Impression: Disoriented, uncooperative, does not follow commands HEENT: Normocephalic atraumatic, extra-ocular movements intact, pupils equal and reactive to light bilaterally, mucous membranes moist. Cardiovascular: Heart regular rate and rhythm Chest: Able to complete full sentences, no retractions, no tachypnea Abdomen: abdomen soft, non-tender, non-distended, no organomegaly Musculoskeletal: Pulses present and equal in all extremities, no peripheral edema Motor: no focal deficits noted Neurological: CN II-XII grossly intact, no focal motor or sensory deficits noted, was also is grossly Skin: Intact with no visualized rashes Psych: Confused Limitations: altered mental status Course Vital Signs 02/11/23 02/11/23 02/11/23 11:37 12:10 13:29 Temperature 98.5 F Pulse Rate 98 72 74 Respiratory 24 18 18 Rate Blood Pressure 168/93 156/92 147/72 O2 Sat by Pulse 98 99 98 Oximetry EKG Findings - EKG Comments: EKG Findings:: My EKG interpretation: Ventricular rate 90, sinus rhythm,. 138, QRS 70, QTc 469. No NE prolongation, no QTC prolongation, no ST or T-wave changes noted. Overall, this EKG is unremarkable Medical Decision Making - Medical Decision Making Was pt. sent in by a medical professional or institution (, PA, CRIMINAL LEGAL ASSISTANT, urgent care, hospital, or [place] health care facility...) When possible be specific @ -No Did you speak to anyone other than the patient for history (EMS, parent, family, police, friend...)? What history was obtained from this source @ -No Did you review nursing and triage notes (agree or disagree)? Why? @ -I reviewed and agree with nursing and triage notes Were old charts reviewed (outside hosp., previous admission, EMS record, old EKG, old radiological studies, urgent care reports/EKG's, [place] health care facility records)? Report findings @ -No old charts were reviewed Differential Diagnosis (chest pain, altered mental status, abdominal pain women, abdominal pain men, vaginal bleeding, musculoskeletal, weakness, fever, dyspnea, syncope, headache, dizziness, GI bleed, back pain, seizure, CVA, palpatations, mental health)? @ -Differential Altered Mental Status: Hypoglycemia, DKA, hypercapnia, ETOH, overdose, CO poisoning, trauma, myxedema coma, HTN encephalopathy, infection, encephalitis, psychosis, intercranial hemorrhage, hepatic encephalopathy, meningitis, CVA, this is not meant to be an all-inclusive list EKG interpreted by me (3pts min.). @ -See above X-rays interpreted by me (1pt min.). @ -None done CT interpreted by me (1pt min.). @ -Computed tomography scan of the brain and CT angiography of the head and neck shows no acute processes. U/S interpreted by me (1pt. min.). @ -None done What testing was considered but not performed or refused? (CT, X-rays, U/S, labs)? Why? @ -None What meds were considered but not given or refused? Why? @ -None Did you discuss the management of the patient with other professionals (professionals i.e. , PA, CRIMINAL LEGAL ASSISTANT, lab, RT, psych nurse, psychiatric social worker supervisor, snow ranger, teacher, space officer, catalytic case operator)? Give summary @ -Discussed with hospitalist for admission Was smoking cessation discussed for >3mins.? @ -No Was critical care preformed (if so, how long)? @ -No Were there social determinants of health that impacted care today? How? (Homelessness, low income, unemployed, alcoholism, drug addiction, transportation, low edu. Level, literacy, decrease access to med. care, shelter, rehab)? @ -No Was there de-escalation of care discussed even if they declined (Discuss DNR or withdrawal of care, Hospice)? DNR status @ -No What co-morbidities impacted this encounter? (DM, HTN, Smoking, COPD, CAD, Cancer, CVA, ARF, Chemo, Hep., AIDS, mental health diagnosis, sleep apnea, morbid obesity)? @ -None Was patient admitted / discharged? Hospital course, mention meds given and route, prescriptions, significant lab abnormalities, going to OR and other pertinent info. @ -77 Year-old female admitted for altered mental status. Patient's clinical presentation is very strange. She seems to be moving all extremities. She is uncooperative. Allegedly she has history of neurologic disease. Seen by neurology in November of this year for seizure disorder. Patient reevaluated at 348 resting comfortably. Patient still altered. Undiagnosed new problem with uncertain prognosis? @ -No Drug Therapy requiring intensive monitoring for toxicity (Heparin, Nitro, Insulin, Cardizem)? @ -No Were any procedures done? @ -No Diagnosis/symptom? Acute, or Chronic, or Acute on Chronic? Uncomplicated (without systemic symptoms) or Complicated (systemic symptoms)? @ -Altered mental status, no obvious source Side effects of treatment? @ -No Exacerbation, Progression, or Severe Exacerbation? @ -No Poses a threat to life or bodily function? How? (Chest pain, [place], [place], pneumonia, PE, COPD, DKA, ARF, appy, cholecystitis, CVA, Diverticulitis, Homicidal, Suicidal, threat to staff... and all critical care pts) @ -yes - Lab Data Result diagrams: 02/11/23 12:30 02/11/23 12:30 Lab Results 02/11/23 02/11/23 02/11/23 Range/Units 12:30 12:30 12:30 WBC 10.7 H (3.8-10.6) k/uL RBC 4.45 (3.80-5.40) m/uL Hgb 13.4 (11.4-16.0) gm/dL Hct 39.9 (34.0-46.0) % MCV 89.6 (80.0-100.0) fL MCH 30.2 (25.0-35.0) pg MCHC 33.7 (31.0-37.0) g/dL RDW 13.0 (11.5-15.5) % Plt Count 303 (150-450) k/uL MPV 7.5 Neutrophils % 76 % Lymphocytes % 18 % Monocytes % 5 % Eosinophils % 0 % Basophils % 0 % Neutrophils # 8.1 H (1.3-7.7) k/uL Lymphocytes # 1.9 (1.0-4.8) k/uL Monocytes # 0.5 (0-1.0) k/uL Eosinophils # 0.0 (0-0.7) k/uL Basophils # 0.0 (0-0.2) k/uL Sodium 138 (137-145) mmol/L Potassium 4.3 (3.5-5.1) mmol/L Chloride 104 (98-107) mmol/L Carbon Dioxide 25 (22-30) mmol/L Anion Gap 9 mmol/L BUN 11 (7-17) mg/dL Creatinine 0.70 (0.52-1.04) mg/dL Est GFR (CKD-EPI)AfAm >90 (>60 ml/min/1.73 sqM) Est GFR (CKD-EPI)NonAf 85 (>60 ml/min/1.73 sqM) Glucose 100 H (74-99) mg/dL Plasma Lactic Acid Andi (0.7-2.0) mmol/L Calcium 9.8 (8.4-10.2) mg/dL Magnesium 2.2 (1.6-2.3) mg/dL Total Bilirubin 0.8 (0.2-1.3) mg/dL AST 46 H (14-36) U/L ALT 45 H (4-34) U/L Alkaline Phosphatase 124 (38-126) U/L Ammonia (<30) umol/L Total Protein 7.9 (6.3-8.2) g/dL Albumin 4.7 (3.5-5.0) g/dL Urine Color Colorless Urine Appearance Clear (Clear) Urine pH 8.0 (5.0-8.0) Ur Specific Marina 1.010 (1.001-1.035) Urine Protein Negative (Negative) Urine Glucose (UA) Negative (Negative) Urine Ketones Negative (Negative) Urine Blood Negative (Negative) Urine Nitrite Negative (Negative) Urine Bilirubin Negative (Negative) Urine Urobilinogen <2.0 (<2.0) mg/dL Ur Leukocyte Esterase Negative (Negative) 02/11/23 Range/Units 12:30 WBC (3.8-10.6) k/uL RBC (3.80-5.40) m/uL Hgb (11.4-16.0) gm/dL Hct (34.0-46.0) % MCV (80.0-100.0) fL MCH (25.0-35.0) pg MCHC (31.0-37.0) g/dL RDW (11.5-15.5) % Plt Count (150-450) k/uL MPV Neutrophils % % Lymphocytes % % Monocytes % % Eosinophils % % Basophils % % Neutrophils # (1.3-7.7) k/uL Lymphocytes # (1.0-4.8) k/uL Monocytes # (0-1.0) k/uL Eosinophils # (0-0.7) k/uL Basophils # (0-0.2) k/uL Sodium (137-145) mmol/L Potassium (3.5-5.1) mmol/L Chloride (98-107) mmol/L Carbon Dioxide (22-30) mmol/L Anion Gap mmol/L BUN (7-17) mg/dL Creatinine (0.52-1.04) mg/dL Est GFR (CKD-EPI)AfAm (>60 ml/min/1.73 sqM) Est GFR (CKD-EPI)NonAf (>60 ml/min/1.73 sqM) Glucose (74-99) mg/dL Plasma Lactic Acid Nadi 1.5 (0.7-2.0) mmol/L Calcium (8.4-10.2) mg/dL Magnesium (1.6-2.3) mg/dL Total Bilirubin (0.2-1.3) mg/dL AST (14-36) U/L ALT (4-34) U/L Alkaline Phosphatase (38-126) U/L Ammonia <9 (<30) umol/L Total Protein (6.3-8.2) g/dL Albumin (3.5-5.0) g/dL Urine Color Urine Appearance (Clear) Urine pH (5.0-8.0) Ur Specific Marina (1.001-1.035) Urine Protein (Negative) Urine Glucose (UA) (Negative) Urine Ketones (Negative) Urine Blood (Negative) Urine Nitrite (Negative) Urine Bilirubin (Negative) Urine Urobilinogen (<2.0) mg/dL Ur Leukocyte Esterase (Negative) Disposition Clinical Impression: AMS (altered mental status) Disposition: ADMITTED IP TO THIS HOSP Condition: Fair Referrals: Ankush Thomas MD [Primary Care Provider] - 1-2 days Decision Time: 15:00
--- NOTE | 2023-02-11 14:51 | CT ---
EXAMINATION TYPE: CT angio head neck DATE OF EXAM: 02/11/2023 COMPARISON: None HISTORY: Neuro deficits CT DLP: 454.8 mGycm CONTRAST: Performed with IV Contrast, patient injected with 65 mL of Isovue 370. Combination Contrast CTA cervical carotids and [place] CTA cervical carotids with 3-D recons truction Contrast CTA of the cervical carotids was performed 3-D reconstruction imaging obtained at a separate workstation. Right carotid system: Mild plaque is seen of the right common carotid artery. There is mild plaque a lso noted at the carotid bulb and proximal ICA. No significant diameter reduction. ECA is patent. Right vertebral artery appears unremarkable. Left carotid system: Mild plaque is seen of the left common carotid artery. There is mild plaque als o noted at the carotid bulb and proximal ICA. No significant diameter reduction. ECA is patent. Lef t vertebral artery appears unremarkable. IMPRESSION: 1. No significant diameter reduction to account for the patient's symptoms. CTA tribe of Yu with 3-D reconstruction Contrast CTA of the tribe of Yu was performed 3-D reconstruction imaging obtained at a separate workstation. Vertebrobasilar system as well as intracranial portions of the internal carotid arteries and their ma martín tributaries are patent. I do not see evidence for sizable aneurysm or vascular malformation. Pl ease note MRI provides greater sensitivity and specificity. Visualized brain appears grossly unremar kable. IMPRESSION: 1. No significant abnormality. NASCET criteria was used in interpretation of this exam?
[2023-02-11 15:10] LABS: Appearance,Urine Clear (Clear); Bilirubin,Urine Negative (Negative); Blood,Urine Negative (Negative); Color,Urine Colorless; Glucose,Urine (UA) Negative (Negative); Ketones,Urine Negative (Negative); Leukocyte Esterase,Urine Negative (Negative); Nitrite,Urine Negative (Negative); Protein,Urine Negative (Negative); Urobilinogen,Urine <2.0 mg/dL (<2.0)
[2023-02-11] MEDS ORDERED: ONDANSETRON 4 MG/2 ML VIAL IVP PRN (15:28)
[2023-02-11] MEDS ORDERED: NALOXONE 0.4 MG/ML 1 ML VIAL IV PRN (15:28)
--- NOTE | 2023-02-11 18:09 | CT ---
EXAMINATION TYPE: CT brain wo con, CT facial bones wo con CT DLP: Combined DLP of 1355.4 mGycm, Automated exposure control for dose reduction was used. DATE OF EXAM: 02/11/2023 5:54 PM COMPARISON: same day CT CLINICAL INDICATION:Female, 77 years old with history of fall, TECHNIQUE: Brain: Axial CT images of the brain were obtained with coronal and sagittal reformats created and rev iewed. Axial imaging of the facial structures with sagittal coronal reformats. Contrast used: None. Oral contrast used: None. FINDINGS: Brain: Extra-axial spaces: No abnormal extra-axial fluid collections. Ventricular system: Dilatation in proportion to cerebral atrophy. Cerebral parenchyma: Cerebral atrophy. No acute intraparenchymal hemorrhage or mass effect. The spaulding -white junction is well differentiated. Scattered hypoattenuating areas are seen within the white mat ter. Cerebellum: Unremarkable. Mass effect: No evidence of midline shift. Intracranial vasculature: unremarkable Soft tissues: Mild soft tissue swelling over the nasal bridge. Calvarium/osseous structures: No depressed skull fracture. Subtle deformity to the nasal bones bilate rally. Paranasal sinuses and mastoid air cells: Mild scattered paranasal sinus disease. Visualized orbits: Orbital contents are intact. IMPRESSION: 1. Suspected bilateral nasal bone fractures. Correlate with point tenderness. 2. No acute intracranial process.
[2023-02-11] MEDS: ACETAMINOPHEN TAB 325 MG TAB PO PRN (21:25)
[2023-02-11] MEDS: OXcarbazepine 150 MG TAB PO SCH (21:26)
[2023-02-11] MEDS: SODIUM CHLORIDE 0.9% 1,000 ML IV SCH (21:47)
[2023-02-12] MEDS: ACETAMINOPHEN TAB 325 MG TAB PO PRN (05:33)
[2023-02-12] MEDS: OXcarbazepine 150 MG TAB PO SCH (08:47)
--- NOTE | 2023-02-12 13:36 | EEG ---
ELECTROENCEPHALOGRAM REPORT PREAMBLE: This is a 77-year-old female with history of seizure disorder, altered mental status. CURRENT MEDICATIONS: Trileptal 150 mg b.i.d., Zofran. EEG FINDINGS: This is a 21-channel digital EEG recorded with video component, utilizing 10/20 international system with referential and bipolar montages. Background consists of well developed, well regulated, moderate voltage activity in mixed frequencies of fast frequency beta, intermixed with some alpha activity seen in bihemispheric region. Background is posterior dominant and reactive to eye opening and closing. There is frequent rhythmic moderate to high amplitude delta slowing seen in the left temporal region, with intermittent left temporal epileptiform activity seen during the study. No electrographic seizure was recorded. Photic driving response was not clearly seen. Drowsiness was seen with appearance of bilaterally symmetric theta frequency rhythm. Deeper stages of sleep were not clearly seen. IMPRESSION: This is an abnormal EEG due to focal slowing and focal epileptiform activity over the left temporal region. This is suggestive of focal cortical neuronal dysfunction with underlying cortical irritability and tendency for seizure. No electrographic seizure was recorded. MMODL / IJN: [id number] /
--- NOTE | 2023-02-12 14:10 | P.HPIM ---
History of Present Illness 75-year-old female with a history of seizure disorder and on Trileptal for seizures came in with complaints of altered mental status patient is still confused and unable to provide much of the history to me. There is a concern of seizure. Patient workup for encephalopathy is negative patient doesn't have any signs or symptoms of infection no significant a little lightheaded abnormalities were evident. Patient is not psychotic at this time. Patient had a CT angios the head, and to noncontrast CTs of the head all of which are within normal limits. Patient had EEG which was abnormal, showing epileptiform activity. REVIEW OF SYSTEMS: Unable to obtain due to patient's clinical condition PHYSICAL EXAMINATION: GENERAL: Patient is confused unable to provide any history to me, not in any acute distress. Well developed, well nourished. HEENT: Pupils are round and equally reacting to light. EOMI. No scleral icterus. No conjunctival pallor. Normocephalic, atraumatic. No pharyngeal erythema. No thyromegaly. CARDIOVASCULAR: S1 and S2 present. No murmurs, rubs, or gallops. PULMONARY: Chest is clear to auscultation, no wheezing or crackles. ABDOMEN: Soft, nontender, nondistended, normoactive bowel sounds. No palpable organomegaly. MUSCULOSKELETAL: No joint swelling or deformity. EXTREMITIES: No cyanosis, clubbing, or pedal edema. NEUROLOGICAL: Limited due to her confusion SKIN: No rashes. Assessment and plan -Argument as status: Possibly post ictal state, patient has abnormal EEG. Continue with home medication awaiting further recommendations from neurology, continue Ativan as needed for seizures. -Gases visual reflux disease: Pepcid DVT prophylaxis: Lovenox Past Medical History Past Medical History: Diabetes Mellitus, GERD/Reflux, Hypertension Additional Past Medical History / Comment(s): Colitis, recurrent diarrhea, hyperglycemia, chronic back pain, recurrent uti's, AMS, possible seizure History of Any Multi-Drug Resistant Organisms: None Reported Past Surgical History: No Surgical Hx Reported Past Anesthesia/Blood Transfusion Reactions: Unable to Obtain Past Psychological History: No Psychological Hx Reported Smoking Status: Former smoker Past Alcohol Use History: None Reported Past Drug Use History: None Reported - Past Family History Mother Family Medical History: Diabetes Mellitus Medications and Allergies Home Medications Medication Instructions Recorded Confirmed Type OXcarbazepine [Trileptal] 150 mg PO BID 02/11/23 02/11/23 History Allergies Allergy/AdvReac Type Severity Reaction Status Date / Time amoxicillin AdvReac Diarrhea Verified 02/11/23 15:27 lamotrigine [From Lamictal] AdvReac confusion Verified 02/11/23 15:27 and tremors Physical Exam Vitals: Vital Signs Temp Pulse Pulse Resp BP BP Pulse Ox 02/12/23 11:00 98.4 F 84 18 152/85 96 02/12/23 10:00 79 18 94 L 02/12/23 07:48 98.1 F 89 18 160/90 95 02/12/23 02:00 98.1 F 90 16 173/84 96 02/11/23 21:59 98.3 F 94 16 165/84 97 02/11/23 17:02 88 18 144/76 97 02/11/23 16:30 87 18 177/70 95 02/11/23 16:14 92 18 146/80 97 Intake and Output 02/11/23 02/12/23 02/12/23 22:59 06:59 14:59 Intake Total 290 Balance 290 Intake: Intake, IV Titration 240 Amount Sodium Chloride 0.9% 1, 240 000 ml @ 20 mls/hr IV . Q24H [facility] Rx#:[id number] Oral 50 Other: # Voids 1 1 # Bowel Movements 1 Results CBC & Chem 7: 02/11/23 12:30 02/11/23 12:30
[2023-02-12] MEDS ORDERED: PHENAZOPYRIDINE 200 MG TAB PO STA (15:10)
[2023-02-12] MEDS: OXcarbazepine 300 MG TAB PO SCH ×2 (15:37→20:25)
[2023-02-12] MEDS: SODIUM CHLORIDE 0.9% 1,000 ML IV SCH (15:39)
--- NOTE | 2023-02-12 19:29 | P.CNNES ---
History of Present Illness Consult date: 02/12/23 Requesting physician: Vu Rollins Reason for Consult: AMS History of Present Illness: Patient is a 77-year-old female with history of seizure disorder, came to the hospital yesterday at 11:36 AM for acute episode of confusion. Patient's was present, who provided most of the history. He states that yesterday patient had a colitis attack and she lost bowels in the pants. She tried to get into the shower, could not clean herself up, therefore came over and was undressed. Patient's had her get into the shower, cleaned her up and at that time he noticed that she could not communicate, could not explain what happened, seeing things that did not make sense. She kept saying phrases, not making sense. No report of falls otherwise. As she was confused, not able to talk, therefore patient's brought her to the hospital. There was no focal weakness, numbness or tingling. Vital signs arrival blood pressure 168/93, pulse rate 98 temperature 98.5. Blood test shows WBC 10.7 hemoglobin 13.4, platelets 303. Basic metabolic panel is normal, AST 46, ALT 45, ammonia is normal, UA negative. CT head revealed degenerative changes and evidence of remote ischemia with no evidence of acute hemorrhage. I proceeded reviewed CT had come agree with the findings. EKG shows normal sinus rhythm. CT of the facial bones revealed suspected bilateral nasal bone fractures. Correlate with point tenderness. No acute intracranial process. CTA of head and neck revealed no significant diameter reduction to account for the patient's symptoms. CTA of the head showed no significant abnormalities. Her believes that she is slightly better this morning, she still cannot communicate. Cannot repeat. He mentions that she gets frequent bladder infections. Patient has been seen by myself previously on 10/13/2022 for altered mental status, agitation. Patient was diagnosed with acute encephalopathy of unclear etiology. Rule out unwitnessed seizure with postictal state. Her dose of Vimpat was increased to 100 mg twice a day. However patient was also started on Lamictal and was recommended to slowly wean off from Vimpat to Lamictal. Patient had undergone lumbar puncture with previous admission in November 2021, which was negative for encephalitis. Patient was also readmitted on 12/03/2022 for prolonged seizure, seen by Dr. De La Cruz, but had already stopped taking Lamictal because of rash. Also was noticing side effect from Vimpat, and Keppra in the past. She had a prolonged 3-D EEG at [facility] in the past and per her neurologist was reported that she had focal seizures. Dr. De La Cruz placed the patient on Depakote. Patient's tells me that she had side effects from Depakote, therefore stopped taking it. She has been on Trileptal 150 mg twice a day since around November 2022. She is tolerating Trileptal very well. She still has tremors of the right hand. Review of Systems Patient has decreased comprehension because of aphasia, therefore not able to obtain review of systems. She is nodding head inappropriately indicating poor comprehension, therefore not able to assess review of systems. 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 Denies any chest pain, abdominal pain or any shortness of breath. No cough, no fever or chest pains. ROS unobtainable: due to mental status Past Medical History Past Medical History: Diabetes Mellitus, GERD/Reflux, Hypertension Additional Past Medical History / Comment(s): Colitis, recurrent diarrhea, hyperglycemia, chronic back pain, recurrent uti's, AMS, possible seizure History of Any Multi-Drug Resistant Organisms: None Reported Past Surgical History: No Surgical Hx Reported Past Anesthesia/Blood Transfusion Reactions: Unable to Obtain Past Psychological History: No Psychological Hx Reported Smoking Status: Former smoker Past Alcohol Use History: None Reported Past Drug Use History: None Reported - Past Family History Mother Family Medical History: Diabetes Mellitus Medications and Allergies Home Medications Medication Instructions Recorded Confirmed Type OXcarbazepine [Trileptal] 150 mg PO BID 02/11/23 02/11/23 History Allergies Allergy/AdvReac Type Severity Reaction Status Date / Time amoxicillin AdvReac Diarrhea Verified 02/11/23 15:27 lamotrigine [From Lamictal] AdvReac confusion Verified 02/11/23 15:27 and tremors Physical Examination - Vital Signs Vital Signs: Vital Signs Temp Pulse Pulse Resp BP BP Pulse Ox 02/12/23 10:00 79 18 94 L 02/12/23 07:48 98.1 F 89 18 160/90 95 02/12/23 02:00 98.1 F 90 16 173/84 96 02/11/23 21:59 98.3 F 94 16 165/84 97 02/11/23 17:02 88 18 144/76 97 02/11/23 16:30 87 18 177/70 95 02/11/23 16:14 92 18 146/80 97 02/11/23 13:29 74 18 147/72 98 02/11/23 12:10 72 18 156/92 99 02/11/23 11:37 98.5 F 98 24 168/93 98 Intake and Output 02/11/23 02/12/23 02/12/23 22:59 06:59 14:59 Intake Total 290 Balance 290 Intake: Intake, IV Titration 240 Amount Sodium Chloride 0.9% 1, 240 000 ml @ 20 mls/hr IV . Q24H [facility] Rx#:[id number] Oral 50 Other: # Voids 1 1 # Bowel Movements 1 Patient is an elderly female, who is alert and awake, but appears slightly encephalopathic, almost looks like postictal state. Attention, concentration and fund of knowledge is quite impaired due to mental status. Patient able to name some objects like glasses, pen, but not able to name knuckles, keeps on repeating it as thuimb. Patient not able to repeat sentences. Patient speaks gibberish language in between. Sometimes she speaks phrases which are very clear. No dysarthria. On cranial nerve examination, pupils are equal, round and reacting to light, visual june are full on confrontation with no neglect. Her gaze is midline. Extraocular muscles are intact. No nystagmus. No obvious facial droop. Tongue protrudes the midline. Extraocular muscles are intact. Hearing appears slightly decreased. Shoulder shrug normal. On muscle strength testing, there is no pronator drift and the strength is normal in arms and legs distally and proximally. Deep tendon reflexes are 1 in all over and plantars downgoing. Sensory to touch is equal with no neglect on double simultaneous stimulation. Cerebellar functions revealed no ataxia for myetbf-we-eggn testing. Patient has tremors of outstretched hands, mainly on the right. Gait deferred.. On general examination, there is no carotid bruit or murmur, S1-S2 audible. Chest is clear on consultation. Abdomen is soft nontender. No organomegaly, bowel sounds present. Peripheral pulses are present. No edema. Results - Laboratory Findings CBC and BMP: 02/11/23 12:30 02/11/23 12:30 Abnormal Lab Findings: Abnormal Labs 02/11/23 02/11/23 12:30 12:30 WBC 10.7 H Neutrophils # 8.1 H Glucose 100 H AST 46 H ALT 45 H Assessment and Plan Assessment: * Seizure disorder, came with acute altered mental status, with aphasia. Suspect postictal state. * Diabetes * Hypertension * History of colitis * Chronic back pain Plan: * EEG was performed today, which was abnormal EEG due to focal slowing and focal epileptiform activity over the left temporal region. This is suggestive of focal cortical neuronal dysfunction with underlying cortical irritability and tendency for seizures. No electrographic seizure was recorded. * Patient is currently on Trileptal very low dose 150 mg twice a day. We'll increase the dose to 300 mg twice a day. * Observe overnight. If remains stable, then may be clear for discharge in the morning. * May need further optimizing dose of Trileptal in the future. Patient will follow-up with her neurologist Dr. Olsen. * Thank you for the consult.
[2023-02-12] MEDS: FAMOTIDINE 20 MG TAB PO SCH (20:24)
[2023-02-12] MEDS ORDERED: OXcarbazepine 150 MG TAB PO SCH (21:00)
[2023-02-13 01:49] VITALS: RESP 16
[2023-02-13 07:40] VITALS: BP 145/75; PULSE 81; TEMP 98.2
[2023-02-13] MEDS: FAMOTIDINE 20 MG TAB PO SCH (08:45)
[2023-02-13] MEDS: OXcarbazepine 300 MG TAB PO SCH (08:46)
[2023-02-13] MEDS ORDERED: ENOXAPARIN 40 MG/0.4 ML SYRINGE SQ SCH (09:00)
[2023-02-13] MEDS: SODIUM CHLORIDE 0.9% 1,000 ML IV SCH (12:15)
[2023-02-13 12:42] VITALS: BMI 18.1
--- NOTE | 2023-02-15 07:42 | P.DS ---
Providers Date of admission: 02/11/23 15:29 Attending physician: Danish Yung Consults: 02/11/23 15:28 Consult Physician Routine Consulting Provider: Venkatesh De La Cruz Consult Reason/Comments: ams Do you want consulting provider notified?: Yes Primary care physician: Ankush Thomas [facility] Course: Final Diagnosis Breakthrough seizure with hx of seizure disorder maintained on Diabetes Mellitus Gastroesophageal reflux disease Hypertension currently normotensive not on blood pressure medication outpatient Discharge Disposition Patient is stable for discharge home. Patient has been cleared by neurology. Mario gan to increase trileptal to 300 mg BID from 150 mg BID. Patient to see her usual neurologist DR. Olsen has an appointment scheduled for 03/08/33. Patient to see here PCP Dr. Thomas on 03/18. Repeat CBC/BMP in 2 to 3 days. Hospital Course This is a 75 year old female with history of diabetes mellitus, GERD, hypertension, seizure disorder comes in [facility] for altered mental status and acute confusion. Patient is a poor historian on admission. Patient had no signs of infection to account for the encephalopapthy. Did report feeling a little lightheaded. There was concern patient may have had a a seizure. The CT angio of the had and non contrast CT were normal limits Patient had EEG which was abnormal, showing epileptiform activity. White count 10.7. Lactic acid 1.5. Patients trileptal level was subtherapeutic at 4.9. Dosing has been increased. Patient does report having a seizure about 5 months she has currently not been driving for the last 1.5 years. Patient educated on [place] law no driving, operating heavy machinery, ladders, heights, and swimming alone for the next 6 months and seizure free. Monitored overnight on increased dose. Mentation has improved. No focal neurological deficits. Alert x 3. No chest pain, no shortness of breath, no nausea, vomiting or diarrhea noted. Cleared for discharge Please see medication reconciliation for a list of current medication. Thank you for allowing us to participate in the care of this patient. The impression and plan of care has been dictated by Lucie Jo, Nurse Practitioner as directed. Dr. Abigail MD I have performed a history and physical examination and medical decision making of this patient, discussed the same with the dictator, and agree with the dictators assessment and plan as written, documented as a scribe. Based on total visit time, I have performed more than 50% of this visit. Patient Condition at Discharge: Stable Plan - Discharge Summary Discharge Rx Participant: No New Discharge Prescriptions: New Famotidine [Pepcid] 20 mg PO DAILY #30 tab OXcarbazepine [Trileptal] 300 mg PO BID #60 tab Discontinued OXcarbazepine [Trileptal] 150 mg PO BID Discharge Medication List Famotidine [Pepcid] 20 mg PO DAILY #30 tab 02/13/23 [Rx] OXcarbazepine [Trileptal] 300 mg PO BID #60 tab 02/13/23 [Rx] Follow up Appointment(s)/Referral(s): Ankush Thomas MD [Primary Care Provider] - 02/16/23 2:30 pm (appointment with Shira VALDIVIA) Betito Olsen DO [STAFF PHYSICIAN] - 03/08/23 4:15 pm Ambulatory/Diagnostic Orders: Complete Blood Count w/diff [LAB.AMB] Time Frame: 3 Days, Location: None Selected Comprehensive Metabolic Panel [LAB.AMB] Time Frame: 3 Days, Location: None Selected Patient Instructions/Handouts: Altered Mental Status (ED) Activity/Diet/Wound Care/Special Instructions: Continue on increased dose of trileptal and follow up with your neurologist [place] states no driving no operating heavy machinery avoid heights and swimming alone for the next 6 months and seizure free for 6 months. Repeat labs and see your PCP in 1 to 2 days Diet as tolerated Activity limited until seen by DR. Orlando Disposition: HOME SELF-CARE
== END 2023-02-13 12:26 | disposition home or self-care (01) | DRG 101 ==
LOC: EC 11:36 → 5NMEDONC 15:29
PROVIDERS: ADMIT Hospitalist; ATTEND Hospitalist
DX: G40.909 Epilepsy, unspecified, not intractable, without status epilepticus (principal); R47.01 Aphasia; G89.29 Other chronic pain; M54.9 Dorsalgia, unspecified; I10 Essential (primary) hypertension; E11.9 Type 2 diabetes mellitus without complications; K21.9 Gastro-esophageal reflux disease without esophagitis; K52.9 Noninfective gastroenteritis and colitis, unspecified; Z79.899 Other long term (current) drug therapy; Z83.3 Family history of diabetes mellitus; Z87.440 Personal history of urinary (tract) infections; Z87.891 Personal history of nicotine dependence; Z28.310 Unvaccinated for COVID-19; Z88.0 Allergy status to penicillin; Z88.8 Allergy status to other drugs, medicaments and biological substances
CPT/HCPCS: 36415; 70450; 70486; 70496; 70498; 80053; 80183; 81003; 82140; 83605; 83735; 85025; 93005; 95816; 96374; 99285

== ENCOUNTER → 2023-04-10 | Outpatient (CLI) | payer MEDICARE | END | disposition home or self-care (01) | LOC: RADXRMAIN 09:43 | PROVIDERS: ATTEND Internal Medicine Geriatric Medicine | DX: Z53.9 Procedure and treatment not carried out, unspecified reason (principal) ==

== ENCOUNTER → 2023-07-12 | Outpatient (CLI) | payer MEDICARE ==
--- NOTE | 2023-07-12 13:21 | XR ---
EXAMINATION TYPE: XR lumbar spine 2 or 3V DATE OF EXAM: 07/12/2023 11:40 AM CLINICAL INDICATION:Female, 77 years old with history of M48.05 spinal stenosis; COMPARISON: 10/13/2022 TECHNIQUE: XR lumbar spine 2 or 3V - Frontal, lateral and coned in L5-S1 lateral views of the spine. FINDINGS: No evidence of any acute osseous pathology. No evidence of loss of vertebral body height i s seen. There is normal alignment of the lumbar vertebral bodies. Moderate scattered disc space narro wing. Multilevel marginal osteophyte formation throughout the visualized spine. There is facet joint arthropathy throughout the spine. Scattered at least mild neural foraminal stenosis. IMPRESSION: 1. No acute fracture. 2. Moderate multilevel disc degeneration.
--- NOTE | 2023-07-12 13:22 | XR ---
EXAMINATION TYPE: XR cervical spine comp DATE OF EXAM: 07/12/2023 11:40 AM CLINICAL INDICATION:Female, 77 years old with history of M48.05 spinal stenosis; [facility] COMPARISON: None TECHNIQUE: The cervical spine was imaged in frontal, lateral, odontoid and bilateral oblique. FINDINGS: The osseous structures show normal alignment without evidence of an acute fracture. There are osteoph ytes noted throughout the cervical spine on the anterior and lateral aspects of the vertebral bodies. The intervertebral disk spaces are narrowed at multiple levels. Pedicles are intact. Soft tissues a re within normal limits. The odontoid appears intact. IMPRESSION: 1. No fracture or dislocation. 2. Moderate degenerative disc disease changes of the cervical spine. Level neural foraminal stenosis throughout the spine. Consider correlation with cross-sectional imaging.
== END | disposition home or self-care (01) ==
LOC: RADXRMAIN 10:59
PROVIDERS: ATTEND Internal Medicine Geriatric Medicine
DX: M51.36 Other intervertebral disc degeneration, lumbar region (principal); M50.30 Other cervical disc degeneration, unspecified cervical region; M99.71 Connective tissue and disc stenosis of intervertebral foramina of cervical region; M48.05 Spinal stenosis, thoracolumbar region; M48.02 Spinal stenosis, cervical region
CPT/HCPCS: 72050; 72100